=== PATIENT | male | born 1950 | race Caucasian/White ===

== ENCOUNTER → 2018-05-08 10:55 | Outpatient (CLI) | payer MEDICARE, OTHER, SELFPAY ==
[2018-05-02 08:08] VITALS: BMI 24.7
--- NOTE | 2018-05-09 12:13 | PFTCOMP ---
COMPLETE PULMONARY FUNCTION TEST INTERPRETATION Brief HPI: Patient is a 68 year old male, currently under the care of myself, who presents to [facility] for complete pulmonary function tests secondary to diagnosis of dyspnea. Respiratory therapist reports good effort and reproducible results. Interpretation: Forced expiration spirometry shows a moderate large airways obstructive ventilatory defect with an FEV1 of 66% predicted. There is no significant bronchodilator response by strict ATS criteria. Spirograms are of good quality and plateau slowly, indicating slowly emptying areas of the lungs. The respiratory flow volume loop shows decreased expiratory flow rates at all lung volumes consistent with airway obstruction. Lung volumes by body plethysmography show a normal total lung capacity at 6.66 L, 114% predicted. All other lung volumes are within normal limits. Diffusion capacity by carbon monoxide is decreased at 62% predicted. The airway resistance is elevated. No previous pulmonary function tests were available for review. Impression: Irreversible moderate large airways obstructive ventilatory defect with a symmetric reduction diffusing capacity, in a pattern consistent with COPD.
== END ==
PROVIDERS: Family Provider Family Medicine; PCP Family Medicine; Referring Provider Internal Medicine Critical Care Medicine; Visit Provider Internal Medicine Critical Care Medicine
DX: R06.09 Other forms of dyspnea (principal)
CPT/HCPCS: 94060; 94726; 94729

== ENCOUNTER → 2018-05-10 07:35 | Outpatient (CLI) | payer MEDICARE, OTHER, SELFPAY ==
[2018-05-02 08:08] VITALS: BMI 24.7
--- NOTE | 2018-05-10 07:36 | CT_ITS ---
STUDY: CT CHEST WITHOUT CONTRAST REASON FOR EXAM: Male, 68 years old. Recurrent pneumonia. Cough and dyspnea. Longtime smoker. RADIATION DOSAGE (If Supplied By Facility): CTDIvol = ( 9.97 ) mGy, DLP = ( 371.19 ) mGycm TECHNIQUE: Transaxial imaging was performed without the administration of intravenous contrast material. Multiplanar coronal and sagittal images were reformatted. Individualized dose optimization techniques were used for this CT. COMPARISON: None. FINDINGS: Increased linear markings in the upper lobes worse on the right side suggestive of a bilateral apical scarring. Focal calcified plaque is seen along the posterior aspect of the left apex in keeping with calcified pleural plaques. Emphysematous changes are seen within the cystic changes worse in the upper lobes. No focal consolidation or mass lesion is seen. There is no demonstrated pleural abnormality. There are calcifications of the coronary arteries. Small pericardial effusion. There are multiple small lymph nodes within the mediastinum, which are normal in size and morphology most compatible with reactive lymph hyperplasia. Normal hilar regions. Normal unenhanced pulmonary arteries. There is atherosclerotic calcification of the aortic arch aortic arch . There are degenerative changes of the thoracic spine. Nonobstructive 2 mm calculus in the upper pole calyx of the right kidney. CT/Chest without Contrast IMPRESSION: Emphysematous changes worse in the upper lobes. Findings suggestive of scarring at the lung apices worse on the right lung apex. Focal calcified pleural plaque in the left upper lobe. Electronically Signed: Chandra Cummings MD at 9:52 EST , Service support ,
[2018-05-10 08:51] VITALS: PULSE 100; PULSE 102; PULSE 103; PULSE 105; PULSE 107; PULSE 65; PULSE 66; PULSE 99; O2SAT 93; O2SAT 95; O2SAT 96
--- NOTE | 2018-05-11 12:36 | PCM.PSN.6M ---
PSN 6 Minute Walk Test - 6 Minute Walk Test 6 Minute Walk Test: 6 Minute Walk Test PSN:6-Minute Walk Test Start: 05/10/18 08:50 Freq: Status: Active Protocol: RESP.6MINW Document 05/10/18 08:51 MARYJANE (Rec: 05/10/18 08:53 MARYJANE [id number]) 6 Minute Walk Test Date Performed 05/10/18 Time Performed 08:30 Height 5 ft 7 in Weight: 73.028 kg Weight in Pounds 161.[address]: Brandin Hernandez Assistive device used: None Pre-test Oxygen Delivery Method Room Air Pulse Ox (%) 96 Pulse Rate (60-100 beats/min) 65 Dyspnea Micheal Scale (0-10) 0 Exertion Micheal Scale (6-20) 6 1st minute Oxygen Delivery Method Room Air Pulse Ox (%) 93 Pulse Rate (60-100 beats/min) 103 H 2nd minute Oxygen Delivery Method Room Air Pulse Ox (%) 93 Pulse Rate (60-100 beats/min) 102 H 3rd minute Oxygen Delivery Method Room Air Pulse Ox (%) 93 Pulse Rate (60-100 beats/min) 99 4th minute Oxygen Delivery Method Room Air Pulse Ox (%) 93 Pulse Rate (60-100 beats/min) 100 5th minute Oxygen Delivery Method Room Air Pulse Ox (%) 93 Pulse Rate (60-100 beats/min) 107 H 6th minute Oxygen Delivery Method Room Air Pulse Ox (%) 93 Pulse Rate (60-100 beats/min) 105 H Dyspnea Micheal Scale (0-10) 3 Exertion Micheal Scale (6-20) 12 Post-test Oxygen Delivery Method Room Air Pulse Ox (%) 95 Pulse Rate (60-100 beats/min) 66 Full Laps Walked 24 Partial Lap, Number of Tiles Walked 5 Total Distance Walked (ft) 1421 - Interpretation Interpretation: The patient was able to ambulate 1421 feet over the course of 6 minutes on room air with no assistive devices or breaks. The patient did experience desaturation from a baseline of 96% to as low as 93%. Peak heart rate was noted at 107 bpm. These findings are consistent with deconditioning. - Recommendations Recommendations: No supplemental oxygen is indicated at this time.
== END ==
PROVIDERS: Family Provider Family Medicine; PCP Family Medicine; Referring Provider Internal Medicine Critical Care Medicine; Visit Provider Internal Medicine Critical Care Medicine
DX: R06.09 Other forms of dyspnea (principal)
CPT/HCPCS: 71250; 94618

== ENCOUNTER → 2019-05-28 07:00 | Outpatient (CLI) | payer MEDICARE, OTHER, SELFPAY ==
[2018-12-12 07:12] VITALS: BMI 24.3
--- NOTE | 2019-06-01 10:08 | PFT ---
INTRODUCTION: The patient is a 69-year-old male that presents for pulmonary function studies secondary to a diagnosis of COPD. Respiratory therapy reports good patient effort. Bronchodilators were used during testing. INTERPRETATION: Forced expiration spirometry demonstrates the presence of a mild large airways obstructive ventilatory defect. There was no significant response to aerosolized bronchodilators. Spirograms are of good quality and do not plateau indicating slow emptying of the lungs. Body plethysmography was performed and reveals an elevated TLC to 119% of predicted, indicative of underlying hyperinflation. Diffusing capacity by single breath CO is reduced at 65% of predicted. IMPRESSION: Irreversible mild large airways obstructive ventilatory defect with associated hyperinflation and symmetric reduction in diffusing capacity.
== END ==
PROVIDERS: Family Provider Family Medicine; PCP Family Medicine; Referring Provider Internal Medicine Critical Care Medicine; Visit Provider Internal Medicine Critical Care Medicine
DX: J44.9 Chronic obstructive pulmonary disease, unspecified (principal)
CPT/HCPCS: 94060; 94726; 94729

== ENCOUNTER → 2019-05-29 08:16 | Outpatient (CLI) | payer MEDICARE, OTHER, SELFPAY ==
[2018-12-12 07:12] VITALS: BMI 24.3
[2019-05-29 08:30] VITALS: PULSE 106; PULSE 108; PULSE 109; PULSE 78; PULSE 80; O2SAT 90; O2SAT 91; O2SAT 92; O2SAT 94; O2SAT 95
--- NOTE | 2019-06-01 10:30 | PCM.PSN.6M ---
PSN 6 Minute Walk Test - 6 Minute Walk Test 6 Minute Walk Test: 6 Minute Walk Test PSN:6-Minute Walk Test Start: 05/29/19 08:35 Freq: Status: Active Protocol: RESP.6MINW Document 05/29/19 08:30 JLA (Rec: 05/29/19 08:42 JLA [id number]) 6 Minute Walk Test Date Performed 05/29/19 Time Performed 08:30 Height 5 ft 7 in Weight: 151 lb Weight in Pounds 151.[address]: Brandin Hernandez Assistive device used: None Pre-test Oxygen Delivery Method Room Air Pulse Ox (%) 94 Pulse Rate (60-100 beats/min) 78 Dyspnea Micheal Scale (0-10) 0 Exertion Micheal Scale (6-20) 6 1st minute Oxygen Delivery Method Room Air Pulse Ox (%) 91 Pulse Rate (60-100 beats/min) 109 H 2nd minute Oxygen Delivery Method Room Air Pulse Ox (%) 92 Pulse Rate (60-100 beats/min) 106 H 3rd minute Oxygen Delivery Method Room Air Pulse Ox (%) 90 Pulse Rate (60-100 beats/min) 108 H 4th minute Oxygen Delivery Method Room Air Pulse Ox (%) 91 Pulse Rate (60-100 beats/min) 109 H 5th minute Oxygen Delivery Method Room Air Pulse Ox (%) 90 Pulse Rate (60-100 beats/min) 108 H 6th minute Oxygen Delivery Method Room Air Pulse Ox (%) 90 Pulse Rate (60-100 beats/min) 109 H Dyspnea Micheal Scale (0-10) 0.5 Exertion Micheal Scale (6-20) 11 Post-test Oxygen Delivery Method Room Air Pulse Ox (%) 95 Pulse Rate (60-100 beats/min) 80 Full Laps Walked 27 Partial Lap, Number of Tiles Walked 0 Total Distance Walked (ft) 1593 - Interpretation Interpretation: The patient ambulated 1593 feet over the course of 6 minutes beginning on room air without assistive devices or breaks. Pretesting oxygen saturation was noted to be 94% on room air. With ambulation, the luis fernando oxygen saturation was 90%. There was no significant exertional oxygen desaturation. - Recommendations Recommendations: There is no indication for the use of supplemental oxygen at this time.
== END ==
PROVIDERS: Family Provider Family Medicine; PCP Family Medicine; Referring Provider Internal Medicine Critical Care Medicine; Visit Provider Internal Medicine Critical Care Medicine
DX: J44.9 Chronic obstructive pulmonary disease, unspecified (principal)
CPT/HCPCS: 94618

== ENCOUNTER → 2020-01-14 11:10 | Outpatient (CLI) | payer MEDICARE, OTHER, SELFPAY ==
[2019-11-29 07:51] VITALS: BMI 24.4
[2020-01-14 15:26] LABS: Absolute Lymphocyte Count 1.45 X10^3/uL (0.83-4.51); Absolute Neutrophil Count 6.8 X10^3/uL (2.0-7.7); Basophil# 0.05 X10^3/uL; Basophil% 0.5 % (0-1); Eosinophil# 0.17 X10^3/uL; Eosinophils% 1.8 % (0-5); Hematocrit 43.5 % (40-54); Hemoglobin 14.1 g/dL (13.0-16.5); Lymphocyte # 1.45 X10^3/ul (4.0); Lymphocyte % 15.2 % (19-41); Mean Corp Hgb Conc 32.4 g/dL (32-36); Mean Corpuscular Hgb 31.6 pg (27.0-32.0); Mean Corpuscular Volume 97.5 fL (80-94); Mean Platelet Vol. 10.3 fl (6.2-12.0); Monocyte% 9.5 % (0-10); NRBC Flagged by Analyzer 0 % (0-5); Neutrophil # 6.84 X10^3/uL (2.7-7.7); Neutrophil % 71.9 % (47-70); Platelet Count 347 K/mm3 (150-450); RBC Distribution Width CV 12.9 % (11.6-14.6); RBC Distribution Width SD 46.3 fl (35.1-43.9); Red Blood Count 4.46 M/mm3 (4.6-6.2); White Blood Count 9.5 K/mm3 (4.4-11.0)
[2020-01-14 16:07] LABS: ALB/GLOB Ratio 0.9 RATIO (0.9-2.4); AST(SGOT) 17 U/L (15-37); Alanine Aminotransfer ALT/SGPT 31 U/L (16-61); Albumin, Serum 3.3 g/dL (3.2-5.0); Alkaline Phosphatase 95 U/L (45-117); Anion Gap 6 (5-15); BUN 11 mg/dL (7-18); BUN/Creat Ratio 15.5 RATIO (10-20); Calcium,Total 8.5 mg/dL (8.5-10.1); Chloride 107 mmol/L (98-107); Creatinine, Serum 0.71 mg/dL (0.70-1.30); EST Glomerular Filtration Rate 117 mL/min (>60); Est Glom Filt Rate - Afr Amer 141 mL/min (>60); Globulin 3.5 g/dL (2.2-4.2); Glucose 97 mg/dL (74-106); PSA,Total - Annual Screen 0.02 ng/mL (0.00-4.00); Potassium 3.6 mmol/L (3.5-5.1); Protein, Total 6.8 g/dL (6.4-8.2); Sodium Level 140 mmol/L (136-145); T4 Free Direct 1.18 ng/dL (0.76-1.46)
== END ==
PROVIDERS: PCP Family Medicine; Visit Provider Family Medicine
DX: R19.7 Diarrhea, unspecified (principal); E04.1 Nontoxic single thyroid nodule; Z12.5 Encounter for screening for malignant neoplasm of prostate
CPT/HCPCS: 36415; 80053; 83630; 84153; 84439; 84443; 85025; 86140; 87177; 87209; 87493; 87506; G0103

== ENCOUNTER → 2020-01-24 07:31 | Outpatient (CLI) | payer MEDICARE, OTHER, SELFPAY ==
[2019-11-29 07:51] VITALS: BMI 24.4
--- NOTE | 2020-01-24 07:33 | US_ITS ---
HISTORY: thyroid nodule COMPARISON: None TECHNIQUE: Grayscale and color Doppler sonography of the thyroid gland. FINDINGS: RIGHT LOBE: 4.2 x 1.4 x 1.4 cm LEFT LOBE: 2.9 x 1.0 x 1.5 cm ISTHMUS: 2.4 mm Mildly heterogeneous echogenicity without distinct nodule. Mildly prominent vascularity. US/Thyroid IMPRESSION: No thyroid nodule detected. at 2334 Reported and signed by: Jennyfer Hare MD Electronically Signed: Jennyfer Hare MD at 23:34 EDT Tel , Service support ,
== END ==
PROVIDERS: PCP Family Medicine; Referring Provider Family Medicine; Visit Provider Family Medicine
DX: E04.1 Nontoxic single thyroid nodule (principal)
CPT/HCPCS: 76536

== ENCOUNTER → 2020-06-10 08:32 | Outpatient (CLI) | payer MEDICARE, OTHER, SELFPAY ==
[2019-11-29 07:51] VITALS: BMI 24.4
--- NOTE | 2020-06-10 12:26 | PFT ---
INTRODUCTION: The patient is a 70-year-old male that presents for pulmonary function studies secondary to a diagnosis of COPD. Respiratory therapy reports good patient effort. Bronchodilators were used during testing. INTERPRETATION: Forced expiration spirometry demonstrates the presence of a moderate large airways obstructive ventilatory defect. There was no significant response to aerosolized bronchodilators. Spirograms are of good quality and do not plateau indicating slow emptying of the lungs. Body plethysmography was performed and reveals lung volumes to be within normal limits. Diffusing capacity by single breath CO is mildly reduced at 63% of predicted. When compared to previous pulmonary function studies from May 2019, there has been a 12% reduction in FEV1. IMPRESSION: Irreversible moderate large airways obstructive ventilatory defect with preserved lung volumes and mild reduction in diffusing capacity. There has been a 12% reduction in FEV1 since May 2019, as noted above.
== END ==
PROVIDERS: PCP Family Medicine; Referring Provider Nurse Practitioner Acute Care; Visit Provider Nurse Practitioner Acute Care
DX: J44.9 Chronic obstructive pulmonary disease, unspecified (principal)
CPT/HCPCS: 94060; 94726; 94729

== ENCOUNTER → 2020-06-13 12:43 | Outpatient (CLI) | payer MEDICARE, OTHER, SELFPAY ==
[2019-11-29 07:51] VITALS: BMI 24.4
--- NOTE | 2020-06-13 12:50 | CT_ITS ---
ACR Level 3 findings have been noted. An addendum which confirms receipt of the report will follow. STUDY: LOW DOSE CT LUNG CANCER SCREENING REASON FOR EXAM: Male, 70 years old. history of smoking quit 4 years ago; 30 pack year RADIATION DOSAGE (If Supplied By Facility): CTDIvol = ( 2.01 ) mGy, DLP = ( 67.71 ) mGycm TECHNIQUE: No contrast was administered. Low dose technique was utilized (average mAS-38 and kVp 120). 1.25 mm axial source images with a slice interval of 1.25-mm were reconstructed in lung windows. 2.5 mm axial source images with a slice interval of 2.5-mm were reconstructed in lung windows. 5.0 mm axial source images with a slice interval of 5.0-mm were reconstructed in soft tissue windows. Nodule measured using lung windows on PACS and/or independent workstation with automated measurement of minimum and maximum diameter. Nodule measurement reported as average diameter rounded to the nearest whole number. Growth is defined as an increase ins size of greater than 1.5 mm. COMPARISON: CT chest 05/10/2018. FINDINGS: Lung nodules There is mild biapical pleural-parenchymal scarring. Stable, small right and left apical nodular nodular opacities measuring up to 4 mm. There is a new left apical nodular opacity with thin pleural extension measuring up to 5 mm Lungs COPD: Mild. Fibrosis: None. Lymph nodes: None. Other findings: None. Pleural space Effusion: None. Calcification: None. Thickening: None. Heart Heart size: Normal. Coronary calcification: Mild. Pericardial effusion: None. Other findings: Mild aortic atherosclerotic disease. Upper abdomen: None. Thorax: There are degenerative changes of the spine. There is grade 3 anterolisthesis of C7 on T1 Base of neck: None. CT/Low Dose CT Lung Screening IMPRESSION: There is a new left apical nodular opacity measuring up to 5 mm. Stable biapical pulmonary nodules measuring up to 4 mm. Lung-RADS category 3 - Continue screening with LDCT in 6 months. IMPORTANT NOTES FOR USE: ACR Lung-RADS Version 1.0 Assessment Categories Release Date: July 30, 2013 Category: Coded 0-4 bases on nodule(s) with highest degree of suspicion. Negative screen is defined as categories 1 and 2; a positive screen is defined as categories 3 and 4. Category 3 and 4A nodules that are unchanged on interval CT should be coded as category 2, and individuals returned to screening in 12 months. Category 4X: Category 3 or 4 nodules with additional imaging findings that increase the suspicion of lung cancer, such as spiculation, GGN that doubles in size in 1 year, enlarged lymph notes, etc. Category Modifiers: S (significant finding unrelated to lung cancer) and C (prior history of treated lung cancer) may be added to the 0-4 Lung-RADS Electronically Signed: Irene Beck MD at 13:57 EST Tel , Service support ,
== END ==
PROVIDERS: PCP Family Medicine; Referring Provider Nurse Practitioner Acute Care; Visit Provider Nurse Practitioner Acute Care
DX: Z12.2 Encounter for screening for malignant neoplasm of respiratory organs (principal); F17.210 Nicotine dependence, cigarettes, uncomplicated
CPT/HCPCS: 71271

== ENCOUNTER → 2020-06-18 12:20 | Outpatient (CLI) | payer MEDICARE, OTHER, SELFPAY ==
[2019-11-29 07:51] VITALS: BMI 24.4
[2020-06-18 12:54] VITALS: PULSE 100; PULSE 101; PULSE 104; PULSE 108; PULSE 72; PULSE 73; PULSE 85; PULSE 94; O2SAT 90; O2SAT 91; O2SAT 92; O2SAT 93; O2SAT 94
--- NOTE | 2020-06-18 14:57 | WT_ITS ---
PSN 6 Minute Walk Test - 6 Minute Walk Test 6 Minute Walk Test: 6 Minute Walk Test PSN:6-Minute Walk Test Start: 06/18/20 12:54 Freq: Status: Active Protocol: RESP.6MINW Document 06/18/20 12:54 [facility] (Rec: 06/18/20 12:57 [facility] [id number]) 6 Minute Walk Test Date Performed 06/18/20 Time Performed 12:30 Height 5 ft 7 in Weight: 70.307 kg Weight in Pounds 155.[address]: Jessica Bentley HUM[employer] RESOURCE STATISTICIAN Assistive device used: None Pre-test Oxygen Delivery Method Room Air Pulse Ox (%) 94 Pulse Rate (60-100 beats/min) 73 Dyspnea Micheal Scale (0-10) 0 1st minute Oxygen Delivery Method Room Air Pulse Ox (%) 93 Pulse Rate (60-100 beats/min) 85 Dyspnea Micheal Scale (0-10) 0 Number of Rests Taken 0 2nd minute Oxygen Delivery Method Room Air Pulse Ox (%) 92 Pulse Rate (60-100 beats/min) 94 Dyspnea Micheal Scale (0-10) 0 Number of Rests Taken 0 3rd minute Oxygen Delivery Method Room Air Pulse Ox (%) 90 Pulse Rate (60-100 beats/min) 100 Dyspnea Micheal Scale (0-10) 0 Number of Rests Taken 0 4th minute Oxygen Delivery Method Room Air Pulse Ox (%) 90 Pulse Rate (60-100 beats/min) 101 H Dyspnea Micheal Scale (0-10) 0 Number of Rests Taken 0 5th minute Oxygen Delivery Method Room Air Pulse Ox (%) 91 Pulse Rate (60-100 beats/min) 104 H Dyspnea Micheal Scale (0-10) 0 Number of Rests Taken 0 6th minute Oxygen Delivery Method Room Air Pulse Ox (%) 91 Pulse Rate (60-100 beats/min) 108 H Dyspnea Micheal Scale (0-10) 0 Number of Rests Taken 0 Post-test Oxygen Delivery Method Room Air Pulse Ox (%) 94 Pulse Rate (60-100 beats/min) 72 Dyspnea Micheal Scale (0-10) 0 Full Laps Walked 20 Partial Lap, Number of Tiles Walked 17 Total Distance Walked (ft) 1197 - Interpretation Interpretation: The patient was able to ambulate 1197 feet over the course of 6 minutes on room air with no assistive devices or breaks. The patient did experience significant desaturation to as low as 90% and a peak heart rate of 108 bpm. These findings are consistent with a respiratory limitation exercise tolerance. - Recommendations Recommendations: No supplemental oxygen is indicated at this time. However, patient will need to be followed closely given level of desaturation.
== END ==
PROVIDERS: PCP Family Medicine; Referring Provider Nurse Practitioner Acute Care; Visit Provider Nurse Practitioner Acute Care
DX: R94.2 Abnormal results of pulmonary function studies (principal)
CPT/HCPCS: 94618

== ENCOUNTER → 2020-10-30 08:57 | Outpatient (CLI) | payer MEDICARE, OTHER, SELFPAY ==
[2020-07-29 11:12] VITALS: BMI 24.1
--- NOTE | 2020-10-30 09:10 | EKG12_ITS ---
Test Reason : PRE OP Blood Pressure : / mmHG Vent. Rate : 063 BPM Atrial Rate : 063 BPM P-R Int : 148 ms QRS Dur : 068 ms QT Int : 372 ms P-R-T Axes : 076 070 067 degrees QTc Int : 380 ms Sinus rhythm with marked sinus arrhythmia Otherwise normal ECG Confirmed by PUJA CASAS, ALEXUS ([id number]), editorial project manager KENDELL CHAWLA ([id number]) on 11/03/2020 8:57:18 AM Referred By: Jeffery Bernardo Confirmed By:CEASAR LUO MD
[2020-10-30 10:37] LABS: Hematocrit 42.9 % (40-54); Mean Corp Hgb Conc 32.6 g/dL (32-36); Mean Corpuscular Hgb 31.3 pg (27.0-32.0); Mean Platelet Vol. 10.4 fl (6.2-12.0); Platelet Count 247 K/mm3 (150-450); RBC Distribution Width CV 13.2 % (11.6-14.6); RBC Distribution Width SD 46.4 fl (35.1-43.9); Red Blood Count 4.47 M/mm3 (4.6-6.2); White Blood Count 7.1 K/mm3 (4.4-11.0)
[2020-10-30 11:04] LABS: Anion Gap 6 (5-15); BUN 14 mg/dL (7-18); BUN/Creat Ratio 20.1 RATIO (10-20); Calcium,Total 8.4 mg/dL (8.5-10.1); Chloride 106 mmol/L (98-107); EST Glomerular Filtration Rate 119 mL/min (>60); Est Glom Filt Rate - Afr Amer 144 mL/min (>60); Glucose 108 mg/dL (74-106); Potassium 4.2 mmol/L (3.5-5.1); Sodium Level 139 mmol/L (136-145)
== END ==
PROVIDERS: PCP Family Medicine; Referring Provider Otolaryngology; Visit Provider Otolaryngology
DX: Z01.810 Encounter for preprocedural cardiovascular examination (principal); Z01.812 Encounter for preprocedural laboratory examination
CPT/HCPCS: 36415; 80048; 85027; 93005

== ENCOUNTER → 2021-02-19 08:59 | Outpatient (CLI) | payer MEDICARE, OTHER, SELFPAY | PROVIDERS: PCP Family Medicine; Referring Provider Nurse Practitioner Acute Care; Visit Provider Nurse Practitioner Acute Care | DX: Z20.822 Contact with and (suspected) exposure to COVID-19 (principal) | CPT/HCPCS: 87635; C9803; U0005; U0003 ==

== ENCOUNTER 2021-03-24 16:05 | Emergency (ER) | payer MEDICARE, OTHER, SELFPAY ==
[2021-03-24 16:06] VITALS: BP 122/76; PULSE 81; RESP 18; TEMP 36.8; O2SAT 95; BMI 23.9
--- NOTE | 2021-03-24 16:25 | RAD_ITS ---
HISTORY: sob EXAMINATION/TECHNIQUE: XR Chest 1 View: 1 view COMPARISON: Chest CT 06/13/20 FINDINGS: LINES/DEVICES: None. LUNGS: No consolidation, edema or effusion. No pneumothorax. MEDIASTINUM AND CARDIOVASCULAR STRUCTURES: Cardiac silhouette not enlarged. Central airways and mediastinal contour are unremarkable. BONES AND SOFT TISSUES: No acute bony abnormalities. RAD/Chest 1 View IMPRESSION: No radiographic evidence of acute cardiopulmonary disease. at 1657 Reported and signed by: Tha Matt MD Electronically Signed: Tha Matt MD at 16:56 EST Tel , Service support ,
[2021-03-24 17:05] VITALS: BP 122/76; PULSE 81; RESP 18; TEMP 36.8; O2SAT 95
--- NOTE | 2021-03-24 17:26 | EDS_ITS ---
HPI History of Present Illness Chief Complaint: Shortness of Breath Narrative Narrative: Patient presents with increased difficulty breathing over the last few days. He states that he has past medical history of COPD. He has been tested for Covid and is negative. He saw his primary care physician a few weeks ago when he received a prednisone burst, and a prescription for an antibiotic but was told not to take the antibiotic unless he developed a fever. He took the prednisone and improved. He has been using an out of date inhaler, and states that his increased shortness of breath has started again over the last few days. He occasionally has a cough. He denies any leg swelling. No chest pain or chest tightness. He and his present because they state he needs a strong antibiotic and more steroids. No fevers or chills. No body aches. No loss of taste or smell. Patient has been vaccinated and booster shot received against COVID-19. [facility] Medical History Bacterial pneumonia COPD (chronic obstructive pulmonary disease) Prostate cancer Home Medications Handicap Placcard #1 ea 07/18/18 [Rx Last Taken Unknown] tiotropium 2.5 mcg-olodaterol 2.5 mcg/actuation mist for inhalation 2 puff INHALATION DAILY #4 g 07/09/20 [Rx Last Taken Unknown] levofloxacin 500 mg tablet 500 mg PO Q24H #5 tab 02/20/21 [Rx Last Taken Unknown] prednisone 10 mg tablet 10 mg PO QDAY #20 tab 02/20/21 [Rx Last Taken Unknown] albuterol sulfate [Ventolin HFA] 1 - 2 puff INHALATION Q4H PRN PRN #1 ea 03/24 [Rx Last Taken Unknown] prednisone 40 mg PO DAILY #14 tab 03/24/21 [Rx Last Taken Unknown] Allergy/AdvReac Type Severity Reaction Status Date / Time No Known Allergies Allergy Unverified 03/24/21 16:08 Family History Father Cancer Prostate Surgical History History of hip replacement Social History Smoking Status: Former smoker Tobacco: How many years used: 50 how long ago did patient quit smokin, 2ppd second hand exposure: Yes ROS ROS ED ROS Narrative Constitutional: No fever, no chills. HEENT: No sore throat. No neck pain. No loss of vision. No rhinorrhea. Cardiovascular: No chest pain. No palpitations. No pedal edema. Respiratory: Occasional cough, positive shortness of breath. Abdominal: No abdominal pain. No nausea. No vomiting. Genitourinary: No dysuria. No hematuria. Musculoskeletal: No myalgias. No arthralgias. Neurologic: No headaches. No dizziness. No lightheadedness. Skin: No rash. No change in color. Psychiatric: No depression. No anxiety. EXAM Physical Exam Narrative Exam Narrative: Afebrile. Vital signs noted. HEENT: Normocephalic. Atraumatic. PERRL, EOMI. Neck soft and supple. No point tenderness or step off. Cardiovascular: Regular rate and rhythm. No murmurs, rubs, or gallops appreciated. Respiratory: No tachypnea. Lungs clear to auscultation bilaterally. Gastrointestinal: Abdomen soft, nontender, with normoactive bowel sounds. No rebound or guarding. Neurological: Awake. Alert. Nonfocal, nonlateralizing. Skin: No rash. Normal color. No pallor. Musculoskeletal: No pedal edema. Full range of motion extremities. Const Vital Signs: 03/24/21 16:06 03/24/21 17:05 Temperature 98.3 F 98.3 F Temperature Source Temporal Temporal Pulse Rate 81 81 Respiratory Rate 18 18 Blood Pressure 122/76 H 122/76 H Blood Pressure Mean 91 91 Pulse Ox 95 95 Oxygen Delivery Method Room Air Room Air MDM MDM MDM Narrative Medical decision making narrative: Patient's pulse ox is 95% on room air without evidence of hypoxia. He has a chest x-ray that was performed in triage. There is no radiographic evidence of an acute cardiopulmonary process/disease. I had a lengthy discussion with the patient and his regarding not using antibiotics for COPD exacerbation. Instead, he will be given another burst of steroids 40 mg for the next week, and I wrote him a prescription for a new inhaler. He states he has only been using that sparingly. He was told that he should be using it every 4-6 hours especially over the next few days. Continuation of smoking cessation was discussed. I feel he can be discharged safely home to follow-up with his primary care physician, and his remanufacturing technician Dr. Brandin Hernandez. I had also discussed with the patient and his swabbing him for COVID-19, but he is not exhibiting any other symptoms except for the shortness of breath with his history of COPD. They declined. Disposition is discharged home in stable condition. Radiography Diagnostic Testing: Clinical Impression(s) from Imaging Studies Chest X-Ray 03/24/21 16:25 IMPRESSION: No radiographic evidence of acute cardiopulmonary disease. at 1657 Reported and signed by: Tha Matt MD Electronically Signed: Tha Matt MD at 16:56 EST Tel , Service support , Discharge Plan Triage Chief Complaint: Shortness of Breath ED Provider: Puma Buchanan Dx/Rx/DC Orders Clinical Impression: COPD (chronic obstructive pulmonary disease), Dyspnea Instructions: ED COPD Flare, ED Dyspnea Prescriptions: New albuterol sulfate [Ventolin HFA] 90 mcg/actuation HFA aerosol inhaler 1 - 2 puff inhalation Q4H PRN PRN (Reason: Wheezing) Qty: 1 RF: 0 prednisone 20 mg tablet 40 mg PO DAILY Qty: 14 RF: 0 No Action levofloxacin 500 mg tablet 500 mg PO Q24H Qty: 5 RF: 0 prednisone 10 mg tablet 10 mg PO QDAY Qty: 20 RF: 0 (DME) Handicap Placcard Qty: 1 RF: 0 Stiolto Respimat 2.5-2.5 mcg/actuation mist 2 puff INHALATION DAILY Qty: 4 RF: 11 Primary Care Provider: Joseph Bourne Referrals: Brandin Hernandez MD [STAFF PHYSICIAN] - 03/30/21 Joseph Bourne DO [Primary Care Provider] - 03/31/21 Disposition Disposition: Home, Self Care
== END 2021-03-24 17:39 | disposition home or self-care (01) ==
LOC: ED 17:26
PROVIDERS: Emergency Provider Emergency Medicine; PCP Family Medicine
DX: J44.1 Chronic obstructive pulmonary disease with (acute) exacerbation (principal); Z87.891 Personal history of nicotine dependence
CPT/HCPCS: 71045; 99282

== ENCOUNTER 2021-07-11 08:02 | Outpatient (CLI) | payer MEDICARE, OTHER, SELFPAY ==
--- NOTE | 2021-07-11 08:05 | CT_ITS ---
HISTORY: Screening. 71-year-old male 50 year smoking history 1 to 3 packs per day. COPD. Emphysema. EXAMINATION: CT Low Dose CT Chest for Lung Cancer Screening TECHNIQUE: Helically acquired images were obtained of the chest. A radiation dose optimization technique was used for this scan. IV Contrast dosage and agent: None RADIATION DOSE: The following value refers to 1 exposure event(s) . CTDI vol (mGy): 2.01 DLP vol (mGy-cm): 70.22 COMPARISON: June 13, 2020, May 10, 2018 FINDINGS: LUNGS, PLEURA AND LARGE AIRWAYS: Diffuse severe emphysematous change. Mild basilar atelectasis or scarring. No consolidation or effusion. Bilateral apical scarring, unchanged from May 10, 2018. No pneumothorax. Mild diffuse peribronchial thickening. 5 mm left apical pulmonary nodule, unchanged from June 13, 2020 with linear atelectasis or scarring extending to pleura. Other bilateral apical scarring is unchanged from June 13, 2020. No new pulmonary nodules. THYROID: No thyroid lesions. HEART AND PERICARDIUM: Heart size is normal. No pericardial effusion. Mild multivessel coronary atherosclerosis. VESSELS: Mild aortic atherosclerosis. Thoracic aorta is not dilated. MEDIASTINUM AND GRAHAM: Scattered subcentimeter mediastinal nodes, nonpathologic by size criteria, unchanged from prior CT. No mediastinal or hilar adenopathy. Esophagus is unremarkable. No hiatal hernia. UPPER ABDOMEN: No acute pathology. BONES: No suspicious lytic or blastic abnormality. Chronic grade 3 anterolisthesis C7 on T1 with mild spinal canal stenosis and severe right neuroforaminal stenosis. Lumbar trans-pedicle fixation under partially seen. CT/Low Dose CT Lung Screening IMPRESSION: Stable 5 mm left apical nodule compared with June 13, 2020. Other apical nodular scarring is unchanged from May 10 2018. Overall Lung-RADS 2: Benign appearance or behavior. 12 month follow-up low dose CT chest recommended. Diffuse emphysematous change with mild peribronchial thickening compatible with acute or chronic bronchitis. IMPORTANT NOTES FOR USE: ACR Lung-RADS Version 1.0 Assessment Categories Release Date: July 30, 2013 Category: Coded 0-4 bases on nodule(s) with highest degree of suspicion. Negative screen is defined as categories 1 and 2; a positive screen is defined as categories 3 and 4. Category 3 and 4A nodules that are unchanged on interval CT should be coded as category 2, and individuals returned to screening in 12 months. Category 4X: Category 3 or 4 nodules with additional imaging findings that increase the suspicion of lung cancer, such as spiculation, GGN that doubles in size in 1 year, enlarged lymph notes, etc. Category Modifiers: S (significant finding unrelated to lung cancer) and C (prior history of treated lung cancer) may be added to the 0-4 Lung-RADS Individualized dose optimization techniques were used for this CT. at 0846 Reported and signed by: Doc Aponte MD Electronically Signed: Doc Aponte MD at 8:45 EDT ,
== END 2021-07-11 23:59 | disposition home or self-care (01) ==
PROVIDERS: PCP Family Medicine; Referring Provider Internal Medicine Critical Care Medicine; Visit Provider Internal Medicine Critical Care Medicine
DX: Z87.891 Personal history of nicotine dependence (principal); J44.9 Chronic obstructive pulmonary disease, unspecified; Z12.2 Encounter for screening for malignant neoplasm of respiratory organs
CPT/HCPCS: 71271

== ENCOUNTER → 2021-07-30 | Outpatient (CLI) | payer MEDICARE, OTHER, SELFPAY ==
--- NOTE | 2021-07-30 13:39 | PFTCOMP ---
COMPLETE PULMONARY FUNCTION TEST INTERPRETATION Brief HPI: Patient is a 71 year old male, currently under the care of myself, who presents to [facility] for complete pulmonary function tests secondary to diagnosis of COPD. Respiratory therapist reports good effort and reproducible results. Interpretation: Forced expiration spirometry shows a mild large airways obstructive ventilatory defect with an FEV1 of 70% predicted. There is no significant bronchodilator response by strict ATS criteria. Spirograms are of good quality and plateau slowly, indicating slowly emptying areas of the lungs. The respiratory flow volume loop shows decreased expiratory flow rates at all lung volumes consistent with airway obstruction. Lung volumes by body plethysmography show a normal total lung capacity at 5.18 L, 90% predicted. All other lung volumes are within normal limits. Diffusion capacity by carbon monoxide is normal at 77% predicted. The airway resistance is elevated. Compared to previous pulmonary function tests from 06/10/2020, there is been a significant improvement in air trapping with hyperinflation and DLCO. Impression: Irreversible mild large airways obstructive ventilatory defect with a symmetric reduction diffusing capacity, but some improvement compared to previous.
== END | disposition home or self-care (01) ==
LOC: PSN 07:51
PROVIDERS: PCP Family Medicine; Referring Provider Internal Medicine Critical Care Medicine; Visit Provider Internal Medicine Critical Care Medicine
DX: Z87.891 Personal history of nicotine dependence (principal); J44.9 Chronic obstructive pulmonary disease, unspecified
CPT/HCPCS: 94060; 94726; 94729

== ENCOUNTER → 2021-08-04 | Outpatient (CLI) | payer MEDICARE, OTHER, SELFPAY ==
[2021-08-04 13:45] VITALS: PULSE 104; PULSE 108; PULSE 110; PULSE 73; PULSE 80; PULSE 89; PULSE 98; O2SAT 91; O2SAT 92; O2SAT 95; O2SAT 96
--- NOTE | 2021-08-05 07:08 | PCM.PSN.6M ---
PSN 6 Minute Walk Test 6 Minute Walk Test 6 Minute Walk Test: 6 Minute Walk Test PSN:6-Minute Walk Test Start: 08/04/21 13:57 Freq: Status: Active Protocol: RESP.6MINW Document 08/04/21 13:45 [facility] (Rec: 08/04/21 14:01 [facility] [id number]) 6 Minute Walk Test Date Performed 08/04/21 Time Performed 13:45 Height 5 ft 6 in Weight: 70.307 kg Weight in Pounds 155.[address]: Dr Hernandez Assistive device used: None Pre-test Oxygen Delivery Method Room Air Pulse Ox (%) 95 Pulse Rate (60-100 beats/min) 73 Dyspnea Micheal Scale (0-10) 0 Exertion Micheal Scale (6-20) 6 1st minute Oxygen Delivery Method Room Air Pulse Ox (%) 96 Pulse Rate (60-100 beats/min) 110 H 2nd minute Oxygen Delivery Method Room Air Pulse Ox (%) 92 Pulse Rate (60-100 beats/min) 108 H 3rd minute Oxygen Delivery Method Nasal Cannula Pulse Ox (%) 91 Pulse Rate (60-100 beats/min) 104 H 4th minute Oxygen Delivery Method Nasal Cannula Pulse Ox (%) 91 Pulse Rate (60-100 beats/min) 108 H 5th minute Oxygen Delivery Method Room Air Pulse Ox (%) 91 Pulse Rate (60-100 beats/min) 98 6th minute Oxygen Delivery Method Room Air Pulse Ox (%) 92 Pulse Rate (60-100 beats/min) 80 Dyspnea Micheal Scale (0-10) 0 Exertion Micheal Scale (6-20) 8 Post-test Oxygen Delivery Method Room Air Pulse Ox (%) 96 Pulse Rate (60-100 beats/min) 89 Full Laps Walked 26 Partial Lap, Number of Tiles Walked 0 Total Distance Walked (ft) 1534 Interpretation Interpretation: The patient ambulated 1534 feet over the course of 6 minutes beginning on room air without assistive devices. Pretesting oxygen saturation was noted to be 95% on room air. With ambulation, the luis fernando oxygen saturation was 91%. There was no significant exertional oxygen desaturation. Recommendations Recommendations: There is no indication for the use of supplemental oxygen at this time.
== END | disposition home or self-care (01) ==
LOC: PSN 13:32
PROVIDERS: PCP Family Medicine; Visit Provider Internal Medicine Critical Care Medicine
DX: J44.9 Chronic obstructive pulmonary disease, unspecified (principal); F17.210 Nicotine dependence, cigarettes, uncomplicated
CPT/HCPCS: 94618

== ENCOUNTER → 2022-04-12 | Outpatient (CLI) | payer MEDICARE, OTHER, SELFPAY ==
[2022-04-12 17:53] LABS: Absolute Lymphocyte Count 1.19 X10^3/uL (0.83-4.51); Absolute Neutrophil Count 11.4 X10^3/uL (2.0-7.7); Basophil# 0.04 X10^3/uL; Basophil% 0.3 % (0-1); Hematocrit 45.3 % (40-54); Hemoglobin 15.1 g/dL (13.0-16.5); Lymphocyte # 1.19 X10^3/ul (0.83-4.51); Lymphocyte % 8.9 % (19-41); Mean Corp Hgb Conc 33.3 g/dL (32-36); Mean Corpuscular Hgb 31.7 pg (27.0-32.0); Mean Corpuscular Volume 95.2 fL (80-94); Mean Platelet Vol. 10.5 fl (6.2-12.0); Monocyte# 0.64 X10^3/uL; Monocyte% 4.8 % (0-10); NRBC Flagged by Analyzer 0 % (0-5); Neutrophil # 11.39 X10^3/uL (2.7-7.7); Neutrophil % 84.7 % (47-70); Platelet Count 507 K/mm3 (150-450); RBC Distribution Width CV 13.1 % (11.6-14.6); RBC Distribution Width SD 46.6 fl (35.1-43.9); Red Blood Count 4.76 M/mm3 (4.6-6.2); White Blood Count 13.4 K/mm3 (4.4-11.0)
[2022-04-12 18:23] LABS: ALB/GLOB Ratio 1.1 RATIO (0.9-2.4); AST(SGOT) 13 U/L (15-37); Alanine Aminotransfer ALT/SGPT 39 U/L (16-61); Albumin, Serum 3.6 g/dL (3.2-5.0); Alkaline Phosphatase 74 U/L (45-117); Anion Gap 6 (5-15); BUN 25 mg/dL (7-18); BUN/Creat Ratio 27.2 RATIO (10-20); CRP < 2.90 mg/L (0.0-3.0); Calcium,Total 9.3 mg/dL (8.5-10.1); Chloride 102 mmol/L (98-107); Cholesterol 181 mg/dL (200); Creatinine, Serum 0.92 mg/dL (0.70-1.30); EST Glomerular Filtration Rate 86 mL/min (>60); Est Glom Filt Rate - Afr Amer 104 mL/min (>60); Globulin 3.4 g/dL (2.2-4.2); Glucose 129 mg/dL (74-106); High Density Lipoprotein 76 mg/dL; PSA,Total - Annual Screen 0.12 ng/mL (0.00-4.00); Potassium 4.4 mmol/L (3.5-5.1); Rheumatoid Factor < 10.0 IU/mL (<15); Sodium Level 136 mmol/L (136-145); Triglycerides 57 mg/dL; Very Low Density Lipoprotein 11 mg/dL (5-40)
== END | disposition home or self-care (01) ==
LOC: BFHLAB 15:06
PROVIDERS: PCP Family Medicine; Visit Provider Family Medicine
DX: J44.1 Chronic obstructive pulmonary disease with (acute) exacerbation (principal); E78.5 Hyperlipidemia, unspecified; M25.50 Pain in unspecified joint; Z12.5 Encounter for screening for malignant neoplasm of prostate; Z51.81 Encounter for therapeutic drug level monitoring
CPT/HCPCS: 36415; 80053; 80061; 84153; 85025; 86140; 86431; G0103

== ENCOUNTER 2022-06-01 07:24 | Day surgery (SDC) | payer MEDICARE, OTHER, SELFPAY ==
[2022-06-01] VITALS (9 sets, daily range): BP systolic 78–100; BP diastolic 46–79; PULSE 71–99; RESP 16–20; TEMP 36.1–37.1; O2SAT 95–98; BMI 25.7
[2022-06-01] MEDS: Lactated Ringers 1,000 ML 15 ML IV (07:49)
--- NOTE | 2022-06-01 08:13 | HP.PCM_ITS ---
History and Physical Date of Admission: 06/01/22 Intake Vital Signs ? 03/30/2208:08 05/03/2306:43 05/03/2308:08 Height 5 ft 4 in 5 ft 4 in 5 ft 4 in Weight: ? ? 154 lb 4 oz BMI ? ?B 26.4 BP ? ? 120/76 Blood Pressure Location ? ? Rt brachial Position ? ? Sitting Respiration ? ? 17 Pulse ? ? 60 Pulse Source ? ? Monitor Temp ? ? 97.4 F L Temp Source ? ? Temporal Pulse Oximetry (%) ? ? 97 Oxygen Delivery Method ? ? room air Intake Visit Reasons:?C-Scope Chief Complaint: c-scope Allergies No Known Allergies Allergy (Verified 05/03/22 09:09) Medications Handicap Placcard #1 ea 07/18/18 [Rx Confirmed 05/03/22] albuterol sulfate 90 mcg/actuation aerosol inhaler (Ventolin HFA) 1 - 2 puff inhalation Q4H PRN PRN Wheezing #1 ea 03/24/21 [Rx Confirmed 05/03/22] ascorbic acid (vitamin C) 1,000 mg tablet,extended release 2,000 mg PO DAILY 03/30/21 [History Confirmed 05/03/22] cholecalciferol (vitamin D3) 25 mcg (1,000 unit) capsule 25 mcg PO BID 03/30/21 [History Confirmed 05/03/22] vitamins A,C,E-lgip-lnjpdq 4,296 mcg-226 mg-90 mg capsule (PreserVision AREDS) 1 cap PO BID 03/30/21 [History Confirmed 05/03/22] tiotropium 2.5 mcg-olodaterol 2.5 mcg/actuation mist for inhalation (Stiolto Respimat) 2 puff inhalation DAILY #4 grams 08/11/21 [Rx Confirmed 05/03/22] elderberry fruit 50 mg/5 mL oral syrup mg PO 05/03/22 [History Confirmed 05/03/22] PFSH Medical History?(Updated 05/03/22 @ 09:08 by Mari Membreno) Bacterial pneumonia COPD (chronic obstructive pulmonary disease) Prostate cancer Surgical History? History of hip replacement Family History? Father Cancer ?? ? Prostate ?? ? Social History? Smoking Status:? Former smoker Tobacco: How many years used:? 50 how long ago did patient quit smoking:? 2017, 2ppd second hand exposure:? Yes alcohol intake:? never substance use type:? does not use HPI HPI HPI: Patient is a 72-year-old male here for colonoscopy.? His last colonoscopy was over 10 years ago he believes.? He is not having any blood in his stool or abdominal pain.? He has no family history of colon cancer.? He says his last colonoscopy was incomplete due to tortuous colon. ROS General General: No weight change, appetite, fatigue, colon cancer, breast cancer or weakness HEENT HEENT: No difficulty swallowing, eye injury, eye surgery, swollen glands or hoarseness Endo Endocrine: No thyroid disease, diabetes mellitus, thyroid cancer, Hair loss, heat intolerance or cold intolerance Musc Musculoskeletal: Yes back problems and arthritis; No rheumatoid arthritis, gout or joint pain Cardio Cardiovascular: No murmur, pacemaker, heart disease, atrial fibrillation, high blood pressure, heart attack, heart stent, palpitations, shortness of breat with exertion or chest pain Psych Psychiatric: No depression, anxiety or hearing voices Resp Respiratory: No shortness of breath, No sleep apnea, No cough, Yes COPD, No asthma, No emphysema and No wheezing Gastro Gastrointestinal: No abdominal pain, No nausea or vomiting, No diarrhea, Yes constipation, No blood in stool, No acid reflux, No hemorrhoids, No ulcers, No gallbladder problem and No black,tarry stools Saw Hematologic: No blood thinners, No blood disorders, No bleeding, No anemia and No blood clots Neuro Neurologic: No system reviewed and no additional complaints, except as documented, No as per HPI, No abnormal gait, No abnormal hearing, No abnormal movements, No abnormal speech, No behavioral changes, No burning sensations, No confusion, No convulsions, No disequilibrium, No dizziness, No localized weakness, No frequent falls, No headache(s), No lack of coordination, No loss of vision, No memory loss, No numbness, No other visual disturbances, No radicular pain, No restless legs, No sensory deficit, No syncope, No tingling, No tremor(s), No weakness and No other Exam Const General: cooperative Orientation: alert and oriented x3 HENMT Head: normal to inspection Neck Neck: normal visual inspection and full ROM Chest Chest palpation & inspection: normal inspection of the chest Resp Effort & Inspection: normal respiratory effort Auscultation: clear to auscultation bilaterally Cardio Rate: regular rate Rhythm: regular rhythm GI Inspection: non-distended Palpation: soft and nontender Skin General: no rashes or lesions noted Neuro General: patient alert and patient oriented x3 Extrem General: full ROM Psych Appearance: grossly normal Mental Status: mental status grossly normal Assessment and Plan Assessment and Plan (1) Screening for malignant neoplasm of colon: ?Status:?Acute ?Plan: Patient does have chronic constipation so I will order him a 2-day bowel prep.? I discussed colonoscopy with him in detail. I explained endoscopy in detail to the patient.? I explained the risks including but not limited to stroke or heart attack with anesthesia, perforation of the GI tract, bleeding, infection.? I explained that any of these could necessitate further emergency surgery.? The patient understands and all questions were answered sufficiently.? The patient wishes to proceed with procedure. Ross Jonhston MD Pager: [facility] [address] [place] [address], [address] [place] [address] Office: I have examined the patient and the H&P has been reviewed. There are no clinical changes since date of exam.
--- NOTE | 2022-06-01 08:41 | OP.COLON_ITS ---
Patient Name: Kris Tate Procedure Date: 06/01/2022 8:14 AM Date of : 1950 Age: 72 Procedure: Colonoscopy Indications: Screening for colorectal malignant neoplasm Providers: Ross Johnston MD Referring MD: Ross Johntson MD Medicines: Monitored Anesthesia Care Patient Profile: This is a 72 year old male. Refer to note in patient chart for documentation of history and physical. Last Colonoscopy: none. The patient's first colonoscopy is today. Complications: No immediate complications. Procedure: Pre-Anesthesia Assessment: - Prior to the procedure, a History and Physical was performed, and patient medications and allergies were reviewed. The patient's tolerance of previous anesthesia was also reviewed. The risks and benefits of the procedure and the sedation options and risks were discussed with the patient. All questions were answered, and informed consent was obtained. Prior Anticoagulants: The patient has taken no previous anticoagulant or antiplatelet agents. After reviewing the risks and benefits, the patient was deemed in satisfactory condition to undergo the procedure. After I obtained informed consent, the scope was passed under direct vision. Throughout the procedure, the patient's blood pressure, pulse, and oxygen saturations were monitored continuously. The colonoscope was introduced through the anus and advanced to the cecum, identified by appendiceal orifice and ileocecal valve. The colonoscopy was performed without difficulty. The patient tolerated the procedure well. The quality of the bowel preparation was good. Scope In: 8:25:46 AM Scope Withdrawal Time 0 hours 6 minutes 10 seconds Scope Out: 8:37:13 AM Total Procedure Duration Time 0 hours 11 minutes 27 seconds Findings: The entire examined colon appeared normal on direct and retroflexion views. Impression: - The entire examined colon is normal on direct and retroflexion views. - No specimens collected. Recommendation: - Discharge patient to home. - Resume previous diet. - Continue present medications. - Repeat colonoscopy is not recommended due to current age (66 years or older) for screening purposes. Procedure Code(s): --- Professional --- 74185, Colonoscopy, flexible; diagnostic, including collection of specimen(s) by brushing or washing, when performed (separate procedure) Diagnosis Code(s): --- Professional --- Z12.11, Encounter for screening for malignant neoplasm of colon CPT copyright 2017 [employer]. All rights reserved. The codes documented in this report are preliminary and upon data coder operator review may be revised to meet current compliance requirements. Ross Johnston MD 06/01/2022 8:41:14 AM This report has been signed electronically. Number of Addenda: 0 Note Initiated On: 06/01/2022 8:14 AM
--- NOTE | 2022-06-01 08:42 | OP.CCLET_ITS ---
06/01/2022 Joseph Bourne Re : Colonoscopy procedure for Kris Tate Dear Steffen This procedure was performed on Wednesday, June 01, 2022. My impressions and recommendations are as follows: Impressions : - The entire examined colon is normal on direct and retroflexion views. - No specimens collected. Recommendations : - Discharge patient to home. - Resume previous diet. - Continue present medications. - Repeat colonoscopy is not recommended due to current age (66 years or older) for screening purposes. My findings are described in the full procedure note, which is enclosed. If I can be of further assistance, please feel free to contact me at Doctor phone number(s): , Work: . Sincerely, Ross Johnston MD 06/01/2022 8:41:14 AM This report has been signed electronically.
== END 2022-06-01 09:40 | disposition home or self-care (01) ==
LOC: EN 07:26 → AC 07:27
PROVIDERS: PCP Family Medicine; Referring Provider Family Medicine; Visit Provider Surgery
PROC: 0DJD8ZZ Inspection of Lower Intestinal Tract, Via Natural or Artificial Opening Endoscopic (ICD-10-PCS; CPT 45378; principal; 2022-06-01 08:25)
DX: Z12.11 Encounter for screening for malignant neoplasm of colon (principal); J44.9 Chronic obstructive pulmonary disease, unspecified; Q43.8 Other specified congenital malformations of intestine; Z87.891 Personal history of nicotine dependence; Z79.899 Other long term (current) drug therapy
CPT/HCPCS: G0121; J7120; J2405

== ENCOUNTER → 2022-07-12 | Outpatient (CLI) | payer MEDICARE, OTHER, SELFPAY ==
--- NOTE | 2022-07-12 13:37 | CT_ITS ---
STUDY: LOW DOSE CT LUNG CANCER SCREENING REASON FOR EXAM: Male, 72 years old, smoker; 30 pack years, quit 2016 RADIATION DOSAGE (If Supplied By Facility): CTDIvol = ( 2.01 ) mGy, DLP = ( 71.73 ) mGycm TECHNIQUE: No contrast was administered. Low dose technique was utilized (average mAS-38 and kVp 120). 1.25 mm axial source images with a slice interval of 1.25-mm were reconstructed in lung windows. COMPARISON: Low-dose chest CT from 07/11/2021 FINDINGS: Hyperexpanded lungs and centrilobular emphysematous changes with stable biapical scarring. Stable 4 mm nodule within posterior left apex with adjacent linear scarring. Stable appearance of a few punctate calcified granulomas within right lung. No new pulmonary nodules, pulmonary mass or consolidation demonstrated. Airways are patent. No pneumothorax or pleural effusion. No pathologically enlarged mediastinal or hilar lymph nodes. Normal size heart with coronary arterial calcifications. Aortic atherosclerotic calcifications with no thoracic aortic aneurysm. Trace residual pericardial effusion. Stable skeletal degenerative changes. Posterior lumbar spinal fusion hardware noted. No acute findings within imaged upper abdomen. CT/Low Dose CT Lung Screening IMPRESSION: Stable appearance of pulmonary emphysema with 5 mm left apical pulmonary nodule and adjacent scarring. There is also sequela of previous intrathoracic granulomatous infection. Lung-RADS category 2 - Continue annual screening with LDCT in 12 months. IMPORTANT NOTES FOR USE: ACR Lung-RADS Version 1.1 Assessment Categories Release Date: 2018 Category: Coded 0-4 bases on nodule(s) with highest degree of suspicion. Negative screen is defined as categories 1 and 2; a positive screen is defined as categories 3 and 4. Category 3 and 4A nodules that are unchanged on interval CT should be coded as category 2, and individuals returned to screening in 12 months. Category 4X: Category 3 or 4 nodules with additional imaging findings that increase the suspicion of lung cancer, such as spiculation, GGN that doubles in size in 1 year, enlarged lymph notes, etc. Category Modifiers: S (significant finding unrelated to lung cancer) Electronically Signed: Joseph Casanova MD at 0:37 EDT ,
== END | disposition home or self-care (01) ==
LOC: CT 13:34
PROVIDERS: PCP Family Medicine; Referring Provider Nurse Practitioner Acute Care; Visit Provider Nurse Practitioner Acute Care
DX: Z12.2 Encounter for screening for malignant neoplasm of respiratory organs (principal); F17.210 Nicotine dependence, cigarettes, uncomplicated
CPT/HCPCS: 71271

== ENCOUNTER 2022-12-29 13:43 | Outpatient (CLI) | payer MEDICARE, OTHER, SELFPAY ==
[2022-12-29 15:10] LABS: Absolute Lymphocyte Count 1.26 X10^3/uL (0.83-4.51); Absolute Neutrophil Count 8.2 X10^3/uL (2.0-7.7); Basophil# 0.08 X10^3/uL; Basophil% 0.7 % (0-1); Eosinophil# 0.11 X10^3/uL; Hematocrit 45.8 % (40-54); Hemoglobin 15.1 g/dL (13.0-16.5); Lymphocyte # 1.26 X10^3/ul (0.83-4.51); Lymphocyte % 11.8 % (19-41); Mean Corpuscular Hgb 32.1 pg (27.0-32.0); Mean Corpuscular Volume 97.4 fL (80-94); Mean Platelet Vol. 10.3 fl (6.2-12.0); Monocyte# 0.76 X10^3/uL; Monocyte% 7.1 % (0-10); NRBC Flagged by Analyzer 0 % (0-5); Neutrophil # 8.22 X10^3/uL (2.7-7.7); Platelet Count 285 K/mm3 (150-450); RBC Distribution Width CV 13.2 % (11.6-14.6); RBC Distribution Width SD 47.7 fl (35.1-43.9); White Blood Count 10.7 K/mm3 (4.4-11.0)
[2022-12-29 16:01] LABS: T4 Free Direct 1.08 ng/dL (0.76-1.46); Thyroid Stim Hormone (TSH) 3.12 uIU/mL (0.358-3.74)
== END 2022-12-29 23:59 | disposition home or self-care (01) ==
LOC: MTLAB 13:44
PROVIDERS: PCP Family Medicine; Referring Provider Nurse Practitioner Family; Visit Provider Nurse Practitioner Family
DX: R22.1 Localized swelling, mass and lump, neck (principal); E07.9 Disorder of thyroid, unspecified
CPT/HCPCS: 36415; 84439; 84443; 85025

== ENCOUNTER → 2023-01-03 | Outpatient (CLI) | payer MEDICARE, OTHER, SELFPAY ==
--- NOTE | 2023-01-03 12:49 | US_ITS ---
INDICATION: NEW LUMP ON NECK EXAMINATION: Ultrasound US Thyroid (eg thyroid, parathyroid, parotid) TECHNIQUE: De Anda scale and color doppler imaging was performed of the thyroid gland. COMPARISON: January 23, 2022 FINDINGS: RIGHT THYROID LOBE: 1.2 x 3.7 x 1.8 cm. Homogeneous echotexture with normal vascularity. [No thyroid nodules are present. LEFT THYROID LOBE: 1.4 x 3.3 x 1.1 cm. Homogeneous echotexture with normal vascularity. [No thyroid nodules are present. ISTHMUS: 0.14 cm. No thyroid nodules are present. There are vascular calcifications within the visualized common carotid artery. There is a 0.8 x 1.0 x 0.6 cm hypoechoic round slightly irregular soft tissue nodule within the suprasternal notch that may contain a partially effaced fatty hilum. US/Thyroid IMPRESSION: No thyroid nodule identified. Indeterminate 0.8 x 1.0 x 0.6 cm soft tissue focus within the suprasternal notch concerning for an abnormal lymph node, cannot exclude neoplastic process. Electronically Signed: Eileen Celestin MD at 12:54 EDT ,
== END | disposition home or self-care (01) ==
LOC: US 12:45
PROVIDERS: PCP Family Medicine; Referring Provider Nurse Practitioner Family; Visit Provider Nurse Practitioner Family
DX: R22.1 Localized swelling, mass and lump, neck (principal)
CPT/HCPCS: 76536

== ENCOUNTER → 2023-01-25 | Outpatient (CLI) | payer MEDICARE, OTHER, SELFPAY ==
--- NOTE | 2023-01-24 14:50 | FLU_PTH ---
PATIENT: BRINA NATHAN Jr. LOC: [facility] U#:[id number] AGE/SX: 72/M ROOM: RE01/25/[address]: Dr. Yusuf Grier MD : 1950 BED: DIS: 01/25/2023 SPEC #: [id number] RECD: 01/25/23 10:24 STATUS: ROB REQ #: [id number] GLORIA: 01/24/23 14:[address]: Yusuf Grier DEPT: CYTOLOGY RECD BY: Maribel Grayson ENTERED: 01/25/23 10:51 SP TYPE: Fluid OTHR DR: Dr. Joseph Bourne DO Tissues: A - Thyroid gland, NOS B - Thyroid gland, NOS Procedures: Special Stain Group II Surgery Specimen Level IV Cytospin Fluid Cytology Other HEADER OPERATION: Fine needle aspiration lymph node in neck PRE-OP DIAGNOSIS: Enlarged lymph node TISSUE SUBMITTED: A - Neck lymph node fluid, B - Neck lymph node x4 slides DIAGNOSIS CYTOLOGY A. Neck lymph node fluid, fine needle aspiration (cytospin and cell block): Acellular specimen. B. Neck lymph node, fine needle aspiration (smears): Negative for malignant cells. See comment. ZEE:karan 01/26/2023 COMMENT B. The specimen consists of a few fragments of fibroadipose tissue. Lymphoid tissue is not identified. Correlation with clinical, radiologic findings and appropriate follow up are necessary. Excision of the lesion is suggested, if clinically indicated, for definite diagnosis. CYTOLOGY STUDY Slides are reviewed. CYTOLOGY GROSS A - Received is 30 ml of light pink cloudy fluid labeled with the patient's name and and designated per the requisition as neck lymph node. Submitted for cytology preparation including cell block. B - Received are four smears labeled with the patient's name and designated per the requisition as neck lymph node. Submitted for staining. / karan 01/25/2023 TC:5 CPT: 93487 x2, 78611
== END | disposition home or self-care (01) ==
LOC: LAB 10:29
PROVIDERS: PCP Family Medicine; Visit Provider Surgery
DX: R59.0 Localized enlarged lymph nodes (principal)
CPT/HCPCS: 88108; 88161; 88305; 88313

== ENCOUNTER 2023-02-04 10:16 | Day surgery (SDC) | payer MEDICARE, OTHER, SELFPAY ==
[2023-02-04 10:42] VITALS: BP 123/82; PULSE 63; RESP 12; TEMP 36.7; O2SAT 95; BMI 26.6
[2023-02-04] MEDS: Lactated Ringers 1,000 ML 15 ML IV (10:42)
--- NOTE | 2023-02-04 12:00 | MASS_PTH ---
PATIENT: BRINA NATHAN Jr. LOC: [facility] U#:[id number] AGE/SX: 72/M ROOM: RE02/04/[address]: Dr. Yusuf Grier MD : 1950 BED: DIS: 02/04/2023 SPEC #: [id number] RECD: 02/04/23 18:20 STATUS: ROB TANNER #: [id number] GLORIA: 02/04/23 12:[address]: Yusuf Grier DEPT: SURGICAL PATHOLOGY RECD BY: Felicitas Casey ENTERED: 02/07/23 08:38 SP TYPE: Mass OTHR DR: Dr. Joseph Bourne, DO Tissues: Neck, NOS Procedures: Surgery Specimen Level IV HEADER OPERATION: Excision, mass, lower back PRE-OP DIAGNOSIS: Cervical lymphadenopathy TISSUE SUBMITTED: Soft tissue mass of lower neck MICROSCOPIC DIAGNOSIS Soft tissue mass of lower neck, excisional biopsy: A piece of fibroadiopose and skeletal muscle tissue, no pathologic diagnosis. See comment. SJ: 02/08/2023 COMMENT Lymph node tissue is not present in the specimen. Correlation with clinical findings and appropriate follow up are necessary. MICROSCOPIC DESCRIPTION Slides are reviewed. GROSS DESCRIPTION Received in fixative is one container labeled with the patient name and designated soft tissue mass of lower neck. The specimen consists of an irregular piece of soft tissue with wire localization measuring 4 x 1. X 1 cm. Sections do not reveal any mass lesions. The specimen is totally submitted in two cassettes. /ZEE:selwyn 02/07/23 TC:4 [facility]: [id number]
--- NOTE | 2023-02-04 12:02 | HP.PCM_ITS ---
History and Physical Date of Admission: 02/04/23 Date of Service: 01/24/23 MR#: [id number] Acct: [id number] Name: BRINA NATHAN Jr. Rep #: [id number] : 1950 Provider: Dr. Yusuf Grier MD Age/Sex: 72/M Location: [facility] Status: Signed Intake Vital Signs 08/18/2304:37 01/24/2314:26 Height 5 ft 4 in 5 ft 7 in Weight: 156 lb 166 lb BMI 26.7 25.9 BP 149/72 H 128/74 H Blood Pressure Location Rt brachial Lt brachial Position Sitting Sitting Respiration 18 18 Pulse 63 Pulse Source Monitor Temp 98.0 F Pulse Oximetry (%) 95 Oxygen Delivery Method room air Intake Visit Reasons: MASS ON NECK Chief Complaint: neck mass Manifest Clerk Required: No Is patient in pain?: No Allergies No Known Allergies Allergy (Verified 01/24/23 14:16) Medications Handicap Placcard #1 ea 07/18/18 [Rx Confirmed 01/24/23] albuterol sulfate 90 mcg/actuation aerosol inhaler (Ventolin HFA) 1 - 2 puff inhalation Q4H PRN PRN Wheezing #1 ea 03/24/21 [Rx Confirmed 01/24/23] ascorbic acid (vitamin C) 1,000 mg tablet,extended release 2,000 mg PO DAILY 03/30/21 [History Confirmed 01/24/23] cholecalciferol (vitamin D3) 25 mcg (1,000 unit) capsule 25 mcg PO BID 03/30/21 [History Confirmed 01/24/23] vitamins A,C,O-qwom-ttzizf 4,296 mcg-226 mg-90 mg capsule (PreserVision AREDS) 1 cap PO BID 03/30/21 [History Confirmed 01/24/23] elderberry fruit 50 mg/5 mL oral syrup 100 mg PO DAILY 05/03/22 [History Confirmed 01/24/23] tiotropium 2.5 mcg-olodaterol 2.5 mcg/actuation mist for inhalation (Stiolto Respimat) 2 puff inhalation DAILY #4 grams 08/18/22 [Rx Confirmed 01/24/23] PFSH Medical History Alcohol use Arthritis Back pain Bacterial pneumonia Bruising Cancer COPD (chronic obstructive pulmonary disease) Former smoker History of irregular heartbeat History of steroid therapy Prostate cancer Prostate disease Wears dentures Wears glasses Surgical History History of back surgery History of hip replacement History of neck surgery History of prostatectomy History of surgery on lower extremity Family History Father Cancer Prostate Social History Smoking Status: Former smoker Tobacco: How many years used: 50 how long ago did patient quit smokin, 2ppd second hand exposure: Yes alcohol intake: never substance use type: does not use HPI HPI HPI: Patient is a 72 male who presents for evaluation of a newly noticed neck nodule. He is referred from Dr. Bourne. He states that he first noticed this area approximately 1 month ago and found it all at since he had not recently had a sore throat. Since that time he has appreciated increasing discomfort and finds it to be sore. He is also appreciated some increasing difficulty with swallowing. His , who accompanies him, confirms that he has been rubbing the area often and she is concerned this represents cancer. Mr. Nathan reports an approximately 15 pound weight gain over the past couple years. He denies any night sweats. Mr. Nathan has a history of a swollen lymph node, but this was previously on the left side and attributed to a impacted tooth. He does note that this area disappeared spontaneously after his tooth infection was addressed. Mr. Nathan is reasonably healthy with few medical diagnoses. He does note in 2012 he was diagnosed with prostate cancer and underwent robotic prostatectomy with 4.5 years of surveillance detecting no significant PSA. He also has a history of smoking for 50 years 1 to 3 packs/day. 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 Mr. Nathan denies any use of blood thinners. ROS General General: No weight change, appetite, fatigue, colon cancer, breast cancer or weakness HEENT HEENT: No difficulty swallowing, eye injury, eye surgery, swollen glands or hoarseness Endo Endocrine: No thyroid disease, diabetes mellitus, thyroid cancer, Hair loss, heat intolerance or cold intolerance Musc Musculoskeletal: Yes back problems and arthritis; No rheumatoid arthritis, gout or joint pain Cardio Cardiovascular: No murmur, pacemaker, heart disease, atrial fibrillation, high blood pressure, heart attack, heart stent, palpitations, shortness of breat with exertion or chest pain Psych Psychiatric: No depression, anxiety or hearing voices Resp Respiratory: No shortness of breath, No sleep apnea, No cough, Yes COPD, No asthma, No emphysema and No wheezing Gastro Gastrointestinal: No abdominal pain, No nausea or vomiting, No diarrhea, Yes constipation, No blood in stool, No acid reflux, No hemorrhoids, No ulcers, No gallbladder problem and No black,tarry stools Saw Hematologic: No blood thinners, No blood disorders, No bleeding, No anemia and No blood clots Neuro Neurologic: No system reviewed and no additional complaints, except as documented, No as per HPI, No abnormal gait, No abnormal hearing, No abnormal movements, No abnormal speech, No behavioral changes, No burning sensations, No confusion, No convulsions, No disequilibrium, No dizziness, No localized weakness, No frequent falls, No headache(s), No lack of coordination, No loss of vision, No memory loss, No numbness, No other visual disturbances, No radicular pain, No restless legs, No sensory deficit, No syncope, No tingling, No tremor(s), No weakness and No other Exam Const General: cooperative and anxious Orientation: alert, awake and oriented x3 Neck Other: Palpable level 6 nodule that is soft but tender to palpation. By ultrasound this measures 1.0 x 0.8 x 0.6 cm. There does appear to be a hilum present within this lymph node. Office Procedures Fine Needle Aspiration Provider Documentation Details: Indication: Abnormal suprasternal notch lymph node After obtaining patient consent and conducting a timeout amongst those present, the procedure was commenced by locating the suspicious nodule in the right mid portion of the suprasternal notch soft tissue using ultrasound. Superficially, the skin was cleaned with an alcohol swab and a wheal of local anesthetic was created after instilling 2 ml 1% lidocaine.. Then, under ultrasound guidance, multiple passes were made into the thyroid nodule using a 25-gauge needle. Once an adequate specimen was detected within the hub of the needle, this was handed off the field. A second pass was made in a similar manner using a 22-gauge needle. Unfortunately despite numerous passes very little material was back aspirated. I did try to plate what material was available but did not receive any specimen so I made the decision to perform a third pass with a another 25- gauge needle and syringe. This specimen, also, was passed off the field for cytopathologic evaluation. External pressure was applied to the neck to assist with hemostasis. Then the surface of the neck was cleaned, dried, and a bandage was applied. Patient was gradually returned to the sitting position and after short period of monitoring was dismissed. Wound care instructions and expe ctations regarding pathologic processing were discussed prior to dismissal. Complications: None Estimated blood loss: 2 ml Alert Baldomero Alert Billing: Yes (Lymph node FNA) Procedure Time Out Time Out Informed consent given: Yes Consent signed: Yes Time out checklist: patient, procedure, site marked/identified, positioning of patient, supplies available, allergies confirmed and team agrees on procedure Time out staff in room: Yes Time out verified: Yes Time out date: 01/24/23 Time out time: 14:50 Assessment and Plan Assessment and Plan (1) Cervical lymphadenopathy: Status: Acute Comment: This is a 72-year-old male with a past history of prostate cancer and significant smoking history who presents with a 1 month history of a tender suprasternal abnormal lymph node. There does not appear to be any inciting event. Patient denies any B type symptoms. In my independent exam and ultrasound of patient's neck I find this to be a superficial lymph node that almost appears separate from the remainder of the level 6 lymph node basin mem bers. Given the superficial nature and discrete appearance I recommended proceeding with a fine-needle aspiration to try to determine the etiology of this finding. Patient was receptive of this recommendation and the procedure was undertaken in uncomplicated fashion using local anesthetic and ultrasound guidance. Complete details of this procedure are recapitulated in the procedures section of this note. Despite significant effort, minimal material was aspirated, yet I do remain hopeful for patient's smears to be diagnostic. Patient, however, is informed that this may require an excisional biopsy to be diagnostic. Post procedure wound care instructions were given. Plan: ? Patient encouraged to keep head elevated and ice to the biopsy site ? We will follow-up with patient once cytopathology results are official I have examined the patient and the H&P has been reviewed. There are no clinical changes since date of exam. Procedure expectations were confirmed and neither the patient nor his family have any further questions. We will proceed to the operating room for excision of lower cervical neck lesion
[2023-02-04] MEDS: Cefazolin 2 GM in 0.9% Normal Saline (100mL Bag) 100 ML IV (12:04)
[2023-02-04] MEDS: Bupivacaine 0.25% 30 ML Vial (13:50)
--- NOTE | 2023-02-04 13:52 | EX.PCM.DISCH ---
Discharge Instructions Diet Discharge Diet: No restrictions Activity Discharge Activity: May Drive May shower in (days): 1 Ice area for (Minutes): 20 Dressing / Incision Call your doctor if your incision/area has: Continuous Slow Oozing, Sudden Increased Bleeding, Increased Pain/ Swelling, Increased Redness and Swelling at the incision site Remove Dressing in: 2 days Cleanse incision/area with: Soap & Water Follow Up Care Please Follow Up With: Yusuf Grier MD When: 10 days for wound check Test Results: Test results from this visit will be discussed in further detail at your follow-up appointment, if applicable. Discharge Plan Admission Primary Reason for Your Visit: Excision of lower neck mass Attending Provider: Yusuf Grier Primary Care Provider: Joseph Bourne Instructions Additional Instructions / Restrictions: Please keep head up the remainder of today and ice for first 48 hours post procedure Discharge Orders/Prescriptions Prescriptions: No Action ascorbic acid (vitamin C) 1,000 mg tablet extended release 2,000 mg PO DAILY PreserVision AREDS 14,320-226-200 acyd-bo-sojh capsule 1 cap PO BID cholecalciferol (vitamin D3) 25 mcg (1,000 unit) capsule 25 mcg PO BID Stiolto Respimat 2.5-2.5 mcg/actuation mist 2 puff INHALATION DAILY Qty: 4 11RF elderberry fruit 50 mg/5 mL syrup 100 mg PO BID albuterol sulfate [Ventolin HFA] 90 mcg/actuation HFA aerosol inhaler 1 - 2 puff inhalation Q4H PRN PRN (Reason: Wheezing) Qty: 1 0RF (DME) Handicap Placcard Qty: 1 0RF Rx Instructions: Length of Time: 99 months Referrals / Follow Up: Joseph Bourne DO [Primary Care Provider] - Disposition Disposition (needs filled in before D/C Order can be placed): Home, Self Care
--- NOTE | 2023-02-04 13:54 | PCM.OPRPT ---
Report of Operation Date of Procedure: 02/04/23 Pre-Operative Diagnosis: Lower neck mass concerning for abnormal lymph node with indeterminant cytopathology Post-Operative Diagnosis: Same Surgery/Procedure Performed:: Excision of lower neck mass via wire localization Description of Surgical Findings:: ? Wire localized approach to excision of lower neck mass just medial to the sternal insertion of the sternocleidomastoid muscle Surgeon: Yusuf Grier yarn rewinder: Gianna Earl yarn rewinder: Leroy Rodriguez Type of Anesthesia: General/Supplemental Anesthesiologist: Raheem Mcfarland Specimen's removed: Central lower neck mass Estimated Blood Loss (mL): 15 Description of Procedure: After appropriate identification in the preoperative holding area patient was brought to the operating room where he was positioned in a supine position. There he underwent a general endotracheal anesthetic. Preoperative antibiotics were infused. He was placed on a shoulder roll and ultrasound guidance was used to place a Kopan's needle and patient's anterior lower cervical neck lesion. His anterior neck was prepped and draped in usual sterile fashion. A formal timeout followed to confirm both patient and procedure. I then made a transverse incision approximately 3 cm long along the mid aspect of the patient's mass. This was carried deeply through the tissue with use of electrocautery to maintain hemostasis as we proceeded. I then dissected laterally in the subcutaneous space to deliver our localization wire into this incision. Tediously I began circumferential dissection of the soft tissue about the wire employing bipolar energy to maintain hemostasis and seal any lymphatics as I proceeded. Despite this great care I did encounter with some bleeding from deeper in the cavity. It was not immediately apparent what the source of this bleeding was so I made the decision to apply pressure and approach our specimen from a different angle. The specimen was ultimately removed with the localization wire intact. Cavity was inspected for bleeding and I found evidence of a bleeding anterior jugular vein along the sternohyoid muscle medially as well as some mild oozing from the level 6 cervical lymph node packet. The former was addressed with a 4-0 silk suture ligature. The latter was addressed with selective electrocautery. To try to ensure hemostasis I requested a Valsalva maneuver from anesthesia and this was held for approximately 5 seconds before it was released. No bleeding was seen with this maneuver and 1 more examination was made for hemostasis in the cavity. Finding this to be intact the cavity was closed with interrupted 3-0 Vicryl in a deep dermal fashion followed by 4-0 Monocryl in a running subcuticular fashion. In addition to the general anesthetic by anesthesia, local anesthetic was used to try to maintain patient's comfort with a total volume of 2 mL 0.25% bupivacaine plain. The specimen was passed off the operative field for permanent pathology. Steri-Strips and dressing were applied and the patient's sedation was lightened and he was transferred to the PACU bed for his ongoing care. Grafts/Implants Used: None Complications None Procedures Integumentary 114x: [id number] Exc h-f-nk-sp b9+manan 2.1-3
[2023-02-04 14:08] VITALS: BP 123/82; BP 138/72; PULSE 93; RESP 18; TEMP 36.6; O2SAT 100
[2023-02-04 14:16] VITALS: BP 123/82; BP 140/76; PULSE 90; RESP 18; O2SAT 96
[2023-02-04 14:30] VITALS: BP 123/82; BP 138/87; PULSE 93; RESP 18; O2SAT 98
[2023-02-04 14:45] VITALS: BP 123/82; BP 130/75; PULSE 80; RESP 18; TEMP 36.6; O2SAT 95
[2023-02-04 15:06] VITALS: BP 123/82
== END 2023-02-04 15:22 | disposition home or self-care (01) ==
LOC: SDC 10:17 → AC 10:18
PROVIDERS: PCP Family Medicine; Referring Provider Surgery; Visit Provider Surgery
PROC: (CPT 21555; principal; 2023-02-04 11:45)
DX: R22.1 Localized swelling, mass and lump, neck (principal); J44.9 Chronic obstructive pulmonary disease, unspecified; Z87.891 Personal history of nicotine dependence; Z79.899 Other long term (current) drug therapy; Z99.81 Dependence on supplemental oxygen
CPT/HCPCS: 21555; 88305; J7120; J2405; J3490

== ENCOUNTER → 2023-03-14 | Outpatient (CLI) | payer MEDICARE, OTHER, SELFPAY ==
--- NOTE | 2023-03-14 16:10 | US_ITS ---
STUDY: SUPERFICIAL ULTRASOUND - SOFT TISSUE NECK REASON FOR EXAM: Male, 72 years old. f/u from surgery--LYMPH NODES TECHNIQUE: A superficial ultrasound was performed with real-time and static solis-scale imaging. COMPARISON: None. FINDINGS: Multiple longitudinal and transverse ultrasound images of the neck demonstrate multiple normal sized lymph nodes with normal fatty warren within multiple zones of the neck.. In the area in the right side of the neck at the site of the palpable abnormality, there is a 1 cm irregular anechoic area within the superficial subcutaneous fat which may represent some septated fluid. This is likely postoperative. In the midline inferiorly at the site of a palpable abnormality, there is a 0.4 x 1.2 cm oval hypoechoic mass with central increased echogenicity consistent with a normal lymph node. US/Head/Neck Soft Tissue IMPRESSION: Ultrasound confirms a 1 cm area of septated fluid which is likely postoperative in a 1.2 cm lymph node corresponding to the palpable abnormalities. Electronically Signed: Tom Gonzalez MD at 18:07 EST ,
== END | disposition home or self-care (01) ==
LOC: US 16:10
PROVIDERS: PCP Family Medicine; Referring Provider Surgery; Visit Provider Surgery
DX: R59.0 Localized enlarged lymph nodes (principal)
CPT/HCPCS: 76536

== ENCOUNTER → 2023-04-26 | Outpatient (CLI) | payer MEDICARE, OTHER, SELFPAY ==
--- NOTE | 2023-04-26 14:03 | RAD_ITS ---
STUDY: X-RAY - ABDOMEN/PELVIS REASON FOR EXAM: Male, 72 years old. Change in bowel habit, bloating TECHNIQUE: Single AP view of the abdomen / pelvis. COMPARISON: None. FINDINGS: Normal visualized lung bases. There is an unremarkable bowel gas pattern. The visualized liver, spleen and kidneys are grossly normal in size and morphology. Mild scoliosis. Hardware L2-3. Spondylosis and degenerative disc disease. Right total hip arthroplasty. Normal visualized osseous structures. RAD/Abdomen Single View IMPRESSION: No acute disease Electronically Signed: Jesse Andrea MD at 17:57 EST ,
== END | disposition home or self-care (01) ==
LOC: MTRAD 14:01
PROVIDERS: PCP Family Medicine; Referring Provider Nurse Practitioner Family; Visit Provider Nurse Practitioner Family
DX: R14.0 Abdominal distension (gaseous) (principal); R19.4 Change in bowel habit
CPT/HCPCS: 74018

== ENCOUNTER → 2023-07-04 | Outpatient (CLI) | payer MEDICARE, OTHER, SELFPAY ==
[2023-07-04 12:25] LABS: Erythrocyte Sedimentation Rate 12 mm/hr (0-20)
[2023-07-04 12:28] LABS: Absolute Lymphocyte Count 0.94 X10^3/uL (0.83-4.51); Absolute Neutrophil Count 9.2 X10^3/uL (2.0-7.7); Basophil# 0.05 X10^3/uL; Basophil% 0.4 % (0-1); Eosinophil# 0.22 X10^3/uL; Eosinophils% 1.9 % (0-5); Hematocrit 43.2 % (40-54); Hemoglobin 14.3 g/dL (13.0-16.5); Lymphocyte # 0.94 X10^3/ul (0.83-4.51); Mean Corp Hgb Conc 33.1 g/dL (32-36); Mean Corpuscular Hgb 32.3 pg (27.0-32.0); Mean Corpuscular Volume 97.5 fL (80-94); Monocyte# 1.12 X10^3/uL; Monocyte% 9.6 % (0-10); NRBC Flagged by Analyzer 0 % (0-5); Neutrophil # 9.18 X10^3/uL (2.7-7.7); Neutrophil % 78.4 % (47-70); Platelet Count 269 K/mm3 (150-450); RBC Distribution Width SD 46.5 fl (35.1-43.9); Red Blood Count 4.43 M/mm3 (4.6-6.2); White Blood Count 11.7 K/mm3 (4.4-11.0)
[2023-07-04 12:35] LABS: AST(SGOT) 13 U/L (15-37); Alanine Aminotransfer ALT/SGPT 22 U/L (16-61); Albumin, Serum 3.1 g/dL (3.2-5.0); Alkaline Phosphatase 86 U/L (45-117); Bilirubin, Direct 0.12 mg/dL (0.00-0.30); Globulin 3.1 g/dL (2.2-4.2); Protein, Total 6.2 g/dL (6.4-8.2)
[2023-07-04 15:58] LABS: Anion Gap 8 (5-15); BUN 29 mg/dL (7-18); BUN/Creat Ratio 32.2 RATIO (10-20); Calcium,Total 8.9 mg/dL (8.5-10.1); Chloride 108 mmol/L (98-107); EST Glomerular Filtration Rate 88 mL/min (>60); Est Glom Filt Rate - Afr Amer 106 mL/min (>60); Glucose 129 mg/dL (74-106); Potassium 4.1 mmol/L (3.5-5.1); Sodium Level 138 mmol/L (136-145)
== END | disposition home or self-care (01) ==
PROVIDERS: PCP Family Medicine; Visit Provider Nurse Practitioner Family
DX: E88.09 Other disorders of plasma-protein metabolism, not elsewhere classified (principal); R14.0 Abdominal distension (gaseous); R18.8 Other ascites
CPT/HCPCS: 36415; 80048; 80076; 85025; 85652; 86140

== ENCOUNTER → 2023-07-21 | Outpatient (CLI) | payer MEDICARE, OTHER, SELFPAY | END | disposition home or self-care (01) | LOC: LABSPEC 13:02 | PROVIDERS: PCP Family Medicine; Referring Provider Nurse Practitioner Acute Care; Visit Provider Nurse Practitioner Acute Care | DX: J44.9 Chronic obstructive pulmonary disease, unspecified (principal) | CPT/HCPCS: 87070; 87077; 87186; 87205 ==

== ENCOUNTER → 2023-08-08 | Outpatient (CLI) | payer MEDICARE, OTHER, SELFPAY ==
--- NOTE | 2023-08-08 08:28 | CT_ITS ---
STUDY: CT ABDOMEN AND PELVIS WITH CONTRAST REASON FOR EXAM: Male, 73 years old. ABD PAIN/BLOATING/CHANGE IN BOWEL HABITS RADIATION DOSAGE (If Supplied By Facility): CTDIvol = ( 17.73 ) mGy, DLP = ( 751.80 ) mGycm TECHNIQUE: Transaxial images were obtained from the dome of the diaphragm to the symphysis pubis with oral contrast. Oral and IV Readi-CAT and 100mL Isovue-300 was administered. Sagittal and coronal images were reconstructed. Individualized dose optimization techniques were used for this CT. COMPARISON: None. FINDINGS: The visualized lung bases are unremarkable. Coronary artery calcification. Scattered small hepatic cysts. Fatty infiltration of the liver. Normal gallbladder and extrahepatic biliary system. Normal spleen. Normal pancreas. Normal bilateral adrenal glands. 2.5 mm nonobstructive calculus in the lower pole of the right kidney. Normal left kidney. Normal visualized stomach. Normal small intestine. There are scattered colonic diverticula consistent with diverticulosis. The appendix is visualized and appears normal. There is diffuse atherosclerotic calcification of the abdominal aorta and its major visceral branches, without a demonstrated aneurysm. Normal inferior vena cava. Normal retroperitoneum. Normal urinary bladder. Normal abdominal wall. There are diffuse degenerative changes of the visualized lumbar spine. Prior laminectomy and fusion at the L2-L3 level. Status post right hip replacement. CT/Abdomen/Pelvis WITH Contrast IMPRESSION: Small hepatic cysts. Fatty infiltration of the liver. Nonobstructive calculus in the lower pole calyx of the right kidney. Electronically Signed: Chandra Cummings MD at 15:32 EDT ,
[2023-08-08 08:51] LABS: CREATININE FINGERSTICK < 1.0 mg/dL (0.70-1.30); EGFR FINGERSTICK > 60.0000 mL/min (>60)
== END | disposition home or self-care (01) ==
LOC: CT 08:25
PROVIDERS: PCP Family Medicine; Referring Provider Family Medicine; Visit Provider Family Medicine
DX: R10.9 Unspecified abdominal pain (principal); R14.0 Abdominal distension (gaseous); R19.4 Change in bowel habit
CPT/HCPCS: 74177; Q9967

== ENCOUNTER → 2023-11-01 | Outpatient (CLI) | payer MEDICARE, OTHER, SELFPAY ==
--- NOTE | 2023-11-01 17:55 | CT_ITS ---
EXAM: CT CHEST, LUNG CANCER SCREENING WITHOUT INTRAVENOUS CONTRAST CLINICAL INDICATION: smoker TECHNIQUE: Helically acquired images were obtained of the chest without intravenous contrast using low dose (LDCT) lung cancer screening protocol. This CT exam was performed using one or more of the following dose reduction techniques: automated exposure control, adjustment of the mA and/or kV according to patient size, and/or use of iterative reconstruction technique. COMPARISON: 07/12/2022 FINDINGS: LUNGS AND PLEURAL SPACES: There is a spiculated lesion in the left lung apex that measures 1.3 x 0.9 x 1.5 cm. There are emphysematous changes seen within both lungs. No pleural effusion or thickening. No pneumothorax. HEART: Unremarkable. Heart size is normal. No pericardial effusion. No significant coronary artery calcifications. MEDIASTINUM: Unremarkable. No mediastinal or hilar adenopathy. Esophagus is unremarkable. No hiatal hernia. THYROID: Unremarkable. No thyroid lesions. BONES/JOINTS: Unremarkable. No suspicious lytic or blastic abnormality. VASCULATURE: Unremarkable. Thoracic aorta is non-dilated. LYMPH NODES: Unremarkable. No enlarged lymph nodes. OTHER FINDINGS: This was not present on the previous exam. CT/Low Dose CT Lung Screening IMPRESSION: Spiculated nodule in the left lung apex which was not present on the previous examination. Lung-RADS score: 4X - Very Suspicious. There are additional features or imaging findings that increase the suspicion of malignancy. Recommend chest CT with or without contrast, PET/CT and/or tissue sampling depending on the probability of malignancy and comorbidities. PET/CT may be used when there is a >=8 mm solid component. For new large nodules that develop on an annual repeat screening CT, a 1 month LDCT may be recommended to address potentially infectious or inflammatory conditions. Electronically Signed: Luis Crenshaw MD at 23:35 EDT ,
== END | disposition home or self-care (01) ==
LOC: CT 17:53
PROVIDERS: PCP Family Medicine; Referring Provider Nurse Practitioner Acute Care; Visit Provider Nurse Practitioner Acute Care
DX: Z12.2 Encounter for screening for malignant neoplasm of respiratory organs (principal); F17.210 Nicotine dependence, cigarettes, uncomplicated
CPT/HCPCS: 71271

== ENCOUNTER → 2023-11-18 | Outpatient (CLI) | payer MEDICARE, OTHER, SELFPAY ==
[2023-11-18 16:06] LABS: Platelet Count 312 K/mm3 (150-450)
[2023-11-18 16:12] LABS: International Normalized Ratio 1.1; Prothrombin Time (Protime)PT. 14.2 SECONDS (11.7-14.9)
[2023-11-18 16:14] LABS: Partial Thromboplast Time 25.9 Seconds (24.1-36.2)
== END | disposition home or self-care (01) ==
LOC: LAB 15:18
PROVIDERS: PCP Family Medicine; Referring Provider Nurse Practitioner Acute Care; Visit Provider Nurse Practitioner Acute Care
DX: I48.91 Unspecified atrial fibrillation (principal); R06.09 Other forms of dyspnea
CPT/HCPCS: 36415; 85049; 85610; 85730

== ENCOUNTER 2023-11-25 09:03 | Outpatient (CLI) | payer MEDICARE, OTHER, SELFPAY ==
[2023-11-25] VITALS (16 sets, daily range): BP systolic 99–141; BP diastolic 59–97; PULSE 70–85; RESP 14–18; TEMP 36.3; O2SAT 92–99; BMI 24.9
--- NOTE | 2023-11-25 | ASPIGT_PTH ---
PATIENT: BRINA NATHAN Jr. LOC: [place] U#:[id number] AGE/SX: 73/M ROOM: RE11/25/[address]: YUMI Abebe : 1950 BED: DIS: 11/25/2023 SPEC #: [id number] RECD: 11/25/23 10:15 STATUS: ROB REManju #: [id number] GLORIA: 11/25/23 00:[address]: Jessica Bentley NP DEPT: SURGICAL PATHOLOGY RECD BY: Goldy Quintero ENTERED: 11/25/23 10:51 SP TYPE: ASP RAD OTHR DR: Dr. Joseph Bourne DO Tissues: Lung, NOS Procedures: FNA Specimen Adequacy Special Stain Group II Special Stain Group I Surgery Specimen Level IV AFB Stain (control) GMS Stain (control) Imprint (control) HEADER OPERATION: Left lung biopsy PRE-OP DIAGNOSIS: Left lung TISSUE SUBMITTED: 20 gauge x 5 cores MICROSCOPIC DIAGNOSIS Left lung, CT guided core biopsy: Extensive necrotizing granulomatous inflammation. Negative for malignancy. See comment. ZEE/ 11/28/2023 COMMENT The specimen is evaluated at the time of biopsy by Dr. Bermudez. Immediate Evaluation = Negative for malignant cells. A few granulomas are noted Special stains for acid fast bacilli and fungi are negative for organisms; matched controls are appropriate. Correlation with clinical, radiologic findings and appropriate follow up are necessary. Rebiopsy is suggested, if clinically indicated. Case has been reviewed in consultation with Dr. Srinivasan who concurs with the above diagnosis. IDC:AM MICROSCOPIC DESCRIPTION Slides are reviewed. GROSS DESCRIPTION Received in fixative is one container labeled with the patient's name and designated Left lung biopsy. The specimen consists of multiple fragments of light nguyen soft tissue that in aggregate measure 1.0 x 0.2 x 0.1 cm. The specimen is totally submitted in one cassette. Two touch imprints are prepared at the time of core biopsy. ZEE/ 11/25/2023 TC:3 CPT:94559,[id number]
[2023-11-25] MEDS: 0.9% Normal Saline (250mL Bag) 250 ML 15 ML IV (10:02)
[2023-11-25] MEDS: Midazolam 2 MG/2 ML Syringe IV ×2 (10:04→10:15)
[2023-11-25] MEDS: fentaNYL 100 MCG/2 ML Ampul IV (10:05)
[2023-11-25] MEDS: Lidocaine 2% (20 ml mdv) 20 ML Vial INFILT (10:17)
--- NOTE | 2023-11-25 10:32 | RAD_ITS ---
STUDY: X-RAY CHEST REASON FOR EXAM: Male, 73 years old. immediate post lung biopsy -- Immediately post lung biopsy TECHNIQUE: AP inspiration and expiration views. COMPARISON: Comparison is made with prior study March 24, 2021. FINDINGS: I suspect a tiny left apical pneumothorax on the immediate post left lung biopsy radiographs. RAD/Chest Insp/Exp 2 View IMPRESSION: I suspect a tiny left apical pneumothorax on the immediate post left lung biopsy radiographs. Electronically Signed: Chandra Cummings MD at 11:06 EDT ,
--- NOTE | 2023-11-25 12:30 | RAD_ITS ---
STUDY: X-RAY CHEST REASON FOR EXAM: Male, 73 years old. 2 hour post lung biopsy -- 2 hours post lung biopsy TECHNIQUE: PA inspiration expiration views. COMPARISON: Comparison is made with prior study done earlier in the day. FINDINGS: Stable minimal left apical pneumothorax. The patient is asymptomatic. RAD/Chest Insp/Exp 2 View IMPRESSION: Stable minimal left apical pneumothorax. The patient is asymptomatic. Electronically Signed: Chandra Cummings MD at 13:40 EDT ,
--- NOTE | 2023-11-25 14:13 | PRO.PCM_ITS ---
Procedure Report Date of Procedure: 11/25/23 Assessment & Plan Assessment/Plan (1) Lung nodule: PLAN: PROCEDURE: CT GUIDED CORE NEEDLE LUNG BIOPSY ORDERING PROVIDER: Jessica Bentley CNP INDICATION: Male, 73 years old. Left upper lobe lung nodule. PROVIDER: DAVID Melara CONSENT: Written informed consent was obtained having explained the risks, benefits and alternatives in detail with the patient and who accepted the risks and agreed to proceed. Laboratory review and clinical assessment was performed. PRE-PROCEDURE SEDATION ASSESSMENT: Current history and physical dictated by referring physician and reviewed. No clinical changes since date of exam. Patient has a Mallampati Score of Class 2 and ASA Class of 3. PROCEDURAL SEDATION PROTOCOL: The Drugs used were: 2 mg Versed, IV, and 50 mcg Fentanyl, IV. The sedation time was: 24 minutes, starting at 1004 and terminated at 1028. The procedural sedation protocol was independently monitored by the department nurse. RADIATION DOSAGE (If Supplied By Facility): CTDIvol = 16.94 mGy, DLP = 626.78 mGycm Individualized dose optimization techniques were used for this CT. TECHNIQUE: The patient was placed in a prone position. A noncontrast CT was performed to localize the lesion in the left upper lobe. The skin surface was prepped and draped in a sterile fashion. 2% lidocaine was used for local anesthesia. Using CT guidance, a 20-gauge coaxial biopsy device was advanced to the periphery of the lesion. A total of 5 core specimens were obtained. Specimens were microscopically reviewed by pathology in the CT suite and placed in formalin solution. BioSentry tract sealant system was deployed at the biopsy site, and the biopsy needle was removed. A sterile occlusive dressing was applied to the biopsy site. The patient tolerated the procedure well. An immediate chest xray was ordered, per protocol. A negative biopsy does not exclude malignancy. Further imaging or clinical followup based on patient condition and degree of clinical suspicion for ma lignancy. Suggest rebiopsy, if biopsy results do not match with clinical scenario. IMPRESSION: 1. CT directed core needle biopsy of left upper lobe nodule using CT image guidance with image documentation as described. Pathology results are pending. 2. Procedural Sedation protocol utilized with independent monitoring by the department nurse. Procedures Radiology Radiology CT Procedures: [id number] Biopsy Lung
== END 2023-11-25 23:59 | disposition home or self-care (01) ==
LOC: CT 09:05
PROVIDERS: PCP Family Medicine; Referring Provider Nurse Practitioner Acute Care; Visit Provider Nurse Practitioner Acute Care
DX: J84.10 Pulmonary fibrosis, unspecified (principal); J44.9 Chronic obstructive pulmonary disease, unspecified; Z79.51 Long term (current) use of inhaled steroids; Z87.891 Personal history of nicotine dependence
CPT/HCPCS: 32408; 71046; 77012; 88172; 88305; 88312; 88313; 99156; J7050; A4216; C2613

== ENCOUNTER 2023-12-14 06:30 | Day surgery (SDC) | payer MEDICARE, OTHER, SELFPAY ==
[2023-12-14] VITALS (9 sets, daily range): BP systolic 115–125; BP diastolic 65–103; PULSE 69–88; RESP 16–18; TEMP 36.1–36.8; O2SAT 93–96; BMI 23.4
--- NOTE | 2023-12-14 06:44 | PCM.OP.BLANK ---
Problems Associated Problem List Diagnoses (1) Scalp cyst: Operative Report Date of Procedure: 12/14/23 Surgery/Procedure Date: 14 Dec 2023 Incision/Procedure Start Time: 8:16 am Incision Close/Procedure End Time: 8:35 am PATIENT: Kris Tate SURGEON: Kris Marina MD PRE-OPERATIVE DIAGNOSIS: Left posterior scalp cyst POST-OPERATIVE DIAGNOSIS: Same PROCEDURE PERFORMED: 1) Excision of left occipital scalp cyst, 1 x 1.2 centimeters (CPT 37710) 2) intermediate closure of left occipital scalp wound following cyst removal, 2.3 centimeters (CPT 46689) OPERATIVE FINDINGS: Appeared to be an epidermal inclusion cyst within the subcutaneous tissue plane. INDICATIONS: Kris Tate is a 73-year-old male with history of COPD as well as a cervical spinal fusion who presents for excision of his left occipital scalp cyst. Plan is for excision and closure today under local and sedation. I talked the patient extensively about the risks of surgery, including bleeding, infection, damage to surrounding structures (nerves, with possible numbness/pain), surgical site dehiscence and wound formation, need for wound care, need for repeat operations, failure to obtain the desired result, DVT/PE, and the risks of anesthesia including . All of their questions were answered, and they agreed to proceed with surgery. The mass was marked in preoperative holding with the patient in agreement and we had the correct spot. OPERATIVE DETAILS: Patient was correct identified in preoperative holding and taken back to the operating room. A timeout was performed. He was administered some sedation and 20 cc of a 50-50 mixture of 1% lidocaine with epinephrine 1:100,000 and 0.25% Marcaine with epinephrine 1-200,000. He was given time to take effect and he was prepped and draped in sterile fashion. 15 blade scalpel was used to make a direct incision over the cyst and careful dissection with tenotomy scissors was performed around the mass and it was excised in 1 piece. It was well-approximated. Was sent to pathology. The wound was irrigated with copious amounts normal saline. The mass measured 1 by 1.2 centimeters. An intermediate closure with 3-0 Monocryl deep sutures followed by marium was performed for closure of 2.3 centimeters. Bacitracin was applied to the incision as well as an ABD and stockinette. Patient tolerated the procedure well was awakened and taken to the PACU in stable condition. EBL: 5 cc Anesthesia: Local and sedation ASA: 3 Antibiotics: 2 grams Ancef IVF: 200 cc NS UOP: Not measured Transfusions: None POST-OPERATIVE PLAN: Okay to take dressing off tomorrow. Follow-up pathology and follow-up in clinic in 1 week. No heavy lifting/strenuous activity. [place] out in 2 weeks.
[2023-12-14] MEDS: Lactated Ringers 1,000 ML 15 ML IV (06:45)
--- NOTE | 2023-12-14 06:50 | PCM.HP.STD ---
HPI - General HPI Narrative BRINA NATHAN, is a 73 M who presents for left occipital scalp cyst excision. Current Encounter (DATE OF SURGERY H&P UPDATE): I saw and examined the patient this morning in pre-operative holding. We discussed risks and benefits of today's surgery and they would like to proceed. NO CHANGE in health history since last seen and evaluated. Ready to proceed with surgery. [facility] Medical History (Updated 12/12/23 @ 08:19 by Charlotte Perez) Chewing tobacco dependence Easy bruising Macular degeneration On home oxygen therapy Former smoker Emphysema, unspecified History of echocardiogram History of stress test Cancer Wears dentures Wears glasses Alcohol use History of steroid therapy Arthritis Prostate disease Back pain Former smoker History of irregular heartbeat Prostate cancer COPD (chronic obstructive pulmonary disease) Home Medications ?Medication ?Instructions ?Recorded ?Last Taken ?Type ascorbic acid (vitamin C) 1,000 mg 2,000 mg PO DAILY 03/30/21 Unknown History tablet,extended release cholecalciferol (vitamin D3) 25 25 mcg PO BID 03/30/21 Unknown History mcg (1,000 unit) capsule vitamins A,C,U-pqzl-swmzof 4,296 1 cap PO BID 03/30/21 Unknown History mcg-226 mg-90 mg capsule (PreserVision AREDS) elderberry fruit 50 mg/5 mL oral 100 mg PO BID 05/03/22 Unknown History syrup albuterol sulfate 90 mcg/actuation 1 - 2 puff inhalation Q4H PRN PRN 03/02/23 Unknown Rx aerosol inhaler (Ventolin HFA) Wheezing #8.5 grams Handicap Placcard #1 ea 04/26/23 Unknown Rx tiotropium 2.5 mcg-olodaterol 2.5 2 puff inhalation DAILY #4 grams 08/18/23 Unknown Rx mcg/actuation mist for inhalation (Stiolto Respimat) ipratropium 0.5 mg-albuterol 3 mg 3 ml inhalation Q4H PRN PRN SOB 11/18/23 Unknown Rx (2.5 mg base)/3 mL nebulization &/OR WHEEZING #180 mL soln Allergy/AdvReac Type Severity Reaction Status Date / Time No Known Allergies Allergy Verified 12/12/23 08:16 Family History Father Cancer Prostate Surgical History (Updated 12/12/23 @ 08:19 by Charlotte Perez) History of lung biopsy H/O excision of mass History of colonoscopy History of surgery on lower extremity History of neck surgery History of back surgery History of prostatectomy History of hip replacement Social History (Updated 12/01/23 @ 14:21 by Lesvia Vela) Smoking Status: Current some day smoker tobacco type: smokeless tobacco Tobacco: How many years used: 50 how long ago did patient quit smokin, 2ppd second hand exposure: Yes alcohol intake: never substance use type: does not use additional social history: denies vaping, denies marijuana use, denies edibles, Uses chew denies use of aspirin and ibuprofen use. Physical Exam Narrative 3 x 4 cm cyst in the left occipital scalp, off of midline. It is mobile and appears to be quite superficial. No draining sinuses. Const General: cooperative HENMT Other: No lymphadenopathy in the neck region Assessment & Plan Assessment/Plan (1) Scalp cyst: PLAN: INTERVAL H&P PLAN, DATE OF SURGERY: We will proceed with surgery today. I talked the patient extensively about the risks of surgery, including bleeding, infection, damage to surrounding structures, surgical site dehiscence and wound formation, need for wound care, need for repeat operations (return of the cyst), failure to obtain the desired result, DVT/PE (albeit low Caprini at 4 and no general anesthesia), and the risks of anesthesia including . All of their questions were answered, and they agreed to proceed with surgery.
--- NOTE | 2023-12-14 07:16 | PRE.ANES_ITS ---
ASA Classification* ASA Classification ASA Classification: 3 Assessment & Plan Anesthesia* Anesthesia Assessment Anesthesia Assessment: Discussed sedation and/or anesthesia options, risks, benefits, and alternatives with patient/parents/legal guardian/POA. Questions invited. The patient/parents/legal guardian/POA seems to understand and agrees to proceed with anesthesia plan. Reviewed the physical assessment, medical history, allergy history and patient home medications list prior to surgery/procedure/anesthetic and documented any changes. Performed airway and anesthesia risk assessments. Anesthesia Type Anesthesia Type: MAC (GA bkup) Anesthesia Focused Assessment* Temperature: 98.3 F Pulse Rate: 71 Blood Pressure: 115/74 Respiratory Rate: 16 Pulse Ox: 95 Airway Assessment Mouth opens: >3 cm Mallampati Score: II Focused Labs Anesthesia Preop lab: CBC WBC 11.7 K/mm3 (4.4-11.0) H 07/04/23 10:06 RBC 4.43 M/mm3 (4.6-6.2) L 07/04/23 10:06 Hgb 14.3 g/dL (13.0-16.5) 07/04/23 10:06 Hct 43.2 % (40-54) 07/04/23 10:06 Plt Count 312 K/mm3 (150-450) 11/18/23 15:31 CHEMISTRY Potassium 4.1 mmol/L (3.5-5.1) 07/04/23 10:06 Sodium 138 mmol/L (136-145) 07/04/23 10:06 BUN 29 mg/dL (7-18) H 07/04/23 10:06 Creatinine 0.90 mg/dL (0.70-1.30) 07/04/23 10:06 Glucose 129 mg/dL (74-106) H 07/04/23 10:06 TSH 3.12 uIU/mL (0.358-3.74) 12/29/22 13:46 COAG PT 14.2 SECONDS (11.7-14.9) 11/18/23 15:31 Pre-Assessment Diagnosis/Proposed Procedure Planned Operative Procedure(s): (L) Left scalp cyst excision Anesthesia History 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 When Was Last Pacemaker Check QUESTION #4 FULL TEXT: You/Your Family Experience fever (hyperthermia) with Anesthesia Last Oral Intake Last Oral intake: Last Oral Intake NPO since 22:30 12/14/23 07:11 Meds taken in AM with sips of No 12/14/23 07:11 water? Meds patient instructed to take am of surgery PONV PONV - electricity trading analyst: PONV - electricity trading analyst Female No 12/12/23 08:20 HX of Motion Sickness No 12/12/23 08:20 HX of N/V After Surgery No 12/12/23 08:20 Non-Smoker No 12/12/23 08:20 Duration of Surgery greater Yes 12/12/23 08:20 than 60 minutes Number of Risk Factors 1 12/12/23 08:20 PONV Score Low Risk 12/12/23 08:20 Height & Weight Height & Weight: Anesthesia: Height & Weight Height 5 ft 7 in 12/14/23 07:11 Weight: 68 kg 12/14/23 07:11 Body Mass Index (BMI) 23.4 12/14/23 07:11 Respiratory Assessment Respiratory Assessment - electricity trading analyst: Respiratory Tract Infection Hx - electricity trading analyst Hx Respiratory Tract Infection No 12/12/23 08:20 STOP Sleep Apnea STOP Sleep Apnea - electricity trading analyst: STOP Sleep Apnea - electricity trading analyst Hx Hypertension No 12/12/23 08:20 Hx Sleep Apnea No 12/12/23 08:20 CPAP BIPAP Do you snore loudly (louder No 12/12/23 08:20 than talking or can be heard Do you often feel tired/ No 12/12/23 08:20 fatigued/ sleepy during daytime? Has anyone observed you stop No 12/12/23 08:20 breathing during sleep? STOP Results Negative 12/12/23 08:20 QUESTION #5 FULL TEXT : Do you snore loudly (louder than talking or can be heard through closed doors)? Tobacco Use History Tobacco Use History - electricity trading analyst: Tobacco Use History - electricity trading analyst Tobacco Use Smoking Status Current some day smoker 12/12/23 08:20 Hx Tobacco Use Yes: CHEWS TOBACCO 12/12/23 08:20 Years Smoking Packs Smoked per Day Smoking Cessation Date was within the last 15 years Hx Smoking Cessation Date 04/04/00 12/12/23 08:20 Hx Smoking Cessation No 12/12/23 08:20 Counseling Hematologic Medial History Hematologic Hx - electricity trading analyst: Hematologic Medical Hx - documentation coordinator Hx of Blood Transfusion No 12/12/23 08:20 Hx of Transfusion in last 3 No 12/12/23 08:20 Months Date of Last Transfusion (if within last 3 months) Ever experience any problems No 12/12/23 08:20 with transfusion(s)? Specify any problems Hx of Preganancy in last 3 N/A 12/12/23 08:20 Months Nurse Filling Out Transfusion VCHRISTIN 12/12/23 08:20 & Questions: Date: 12/12/23 12/12/23 08:20 Time: 08:21 12/12/23 08:20 Patient unable to answer at this time (ie. confused, unrespo /Reproduction History /Reproductive History - electricity trading analyst: /Reproductive Hx- electricity trading analyst Hx Now Gestational Age (in weeks): EDC: Hx Hx Para Hx Section SAB Active Medications Active Medications: Current Medications Generic Name Dose Route Start Last Admin Trade Name Freq PRN Reason Stop Dose Admin Cefazolin Sodium 2 gm/ Sodium 110 mls @ 150 mls/hr 12/14/23 08:00 Chloride IV 12/14/23 08:43 PREOP ONE Lactated Ringer's 1,000 mls @ 15 mls/hr 12/14/23 06:45 IV .Q48H LAURA PFSH Medical History Chewing tobacco dependence Easy bruising Macular degeneration On home oxygen therapy Former smoker Emphysema, unspecified History of echocardiogram History of stress test Cancer Wears dentures Wears glasses Alcohol use History of steroid therapy Arthritis Prostate disease Back pain Former smoker History of irregular heartbeat Prostate cancer COPD (chronic obstructive pulmonary disease) Home Medications ?Medication ?Instructions ?Recorded ?Last Taken ?Type ascorbic acid (vitamin C) 1,000 mg 2,000 mg PO DAILY 03/30/21 Unknown History tablet,extended release cholecalciferol (vitamin D3) 25 25 mcg PO BID 03/30/21 Unknown History mcg (1,000 unit) capsule vitamins A,C,Y-ykjj-razugd 4,296 1 cap PO BID 03/30/21 Unknown History mcg-226 mg-90 mg capsule (PreserVision AREDS) elderberry fruit 50 mg/5 mL oral 100 mg PO BID 05/03/22 Unknown History syrup albuterol sulfate 90 mcg/actuation 1 - 2 puff inhalation Q4H PRN PRN 03/02/23 Unknown Rx aerosol inhaler (Ventolin HFA) Wheezing #8.5 grams Handicap Placcard #1 ea 04/26/23 Unknown Rx tiotropium 2.5 mcg-olodaterol 2.5 2 puff inhalation DAILY #4 grams 08/18/23 Unknown Rx mcg/actuation mist for inhalation (Stiolto Respimat) ipratropium 0.5 mg-albuterol 3 mg 3 ml inhalation Q4H PRN PRN SOB 11/18/23 Unknown Rx (2.5 mg base)/3 mL nebulization &/OR WHEEZING #180 mL soln cephalexin 500 mg capsule 500 mg PO TID 7 days #21 caps 12/14/23 Unknown Rx oxycodone 5 mg tablet 5 mg PO Q8H pain 5 days #10 tabs 12/14/23 Unknown Rx Allergy/AdvReac Type Severity Reaction Status Date / Time No Known Allergies Allergy Verified 12/12/23 08:16 Family History Father Cancer Prostate Surgical History History of lung biopsy H/O excision of mass History of colonoscopy History of surgery on lower extremity History of neck surgery History of back surgery History of prostatectomy History of hip replacement Social History Smoking Status: Current some day smoker tobacco type: smokeless tobacco Tobacco: How many years used: 50 how long ago did patient quit smokin, 2ppd second hand exposure: Yes alcohol intake: never substance use type: does not use additional social history: denies vaping, denies marijuana use, denies edibles, Uses chew denies use of aspirin and ibuprofen use. Review of Systems (Anesthesia) ROS Narrative System reviewed and no additional complaints, except as documented.
[2023-12-14] MEDS: Ipratropium/Albuterol Sulfate 3 ML AMPUL.NEB INHALATION (07:31)
--- NOTE | 2023-12-14 08:00 | CYST_PTH ---
PATIENT: BRINA NATHAN Jr. LOC: [facility] U#:[id number] AGE/SX: 73/M ROOM: RE12/14/[address]: Dr. Brina Marina MD : 1950 BED: DIS: 12/14/2023 SPEC #: [id number] RECD: 12/14/23 11:44 STATUS: ROB REManju #: [id number] GLORIA: 12/14/23 08:[address]: Brina Marina DEPT: SURGICAL PATHOLOGY RECD BY: Goldy Quintero ENTERED: 12/14/23 12:09 SP TYPE: Cyst OTHR DR: Dr. Joseph Bourne, DO Tissues: CYST Procedures: Surgery Specimen Level III HEADER OPERATION: Left scalp cyst excision PRE-OP DIAGNOSIS: Scalp cyst TISSUE SUBMITTED: Scalp cyst MICROSCOPIC DIAGNOSIS Scalp cyst, excision: Epidermal inclusion cyst, fragmented. ZEE/ 12/15/2023 MICROSCOPIC DESCRIPTION Slides are reviewed. GROSS DESCRIPTION Received in fixative is one container labeled with the patient's name and designated Scalp cyst. The specimen consists of multiple fragments of nguyen-white soft tissue measuring in aggregate 2.0 x 2.0 x 0.3cm. The entire specimen is submitted in one cassette. 12/14/2023 TC:5 CPT:[id number]
[2023-12-14] MEDS: Cefazolin 2 GM in 0.9% Normal Saline (100mL Bag) 100 ML IV (08:02)
[2023-12-14] MEDS: Bupiv/Epi 0.25% 30 ML Vial (08:13)
[2023-12-14] MEDS: Lidocaine 1% /Epi 1:100 (20ml) 20 ML Vial (08:13)
[2023-12-14] MEDS: BACITRACIN/POLYMYXIN B 15 GM Tube 1 APPLIC (08:25)
--- NOTE | 2023-12-14 08:37 | PCM.POST.ANE ---
Anesthesia: Postop Eval I Current Vital Signs Temperature: 96.9 F Pulse Rate: 88 Blood Pressure: 125/103 Respiratory Rate: 18 Pulse Ox: 96 Oxygen Delivery Method: Room Air Assessment Airway patent: Yes Spontaneous unlabored respirations: Yes Mental status: Awake and Calm nausea: No Vomiting: No Anesthesia Complication: No Fluid Hydration Crystalloid volume administer (ml): 300 Total IV fluid infused: 300 Progress Note Post-operative progress note: DENIES PAIN; NO C/O Anesthesia document: Postop Eval 1 completed: Yes
--- NOTE | 2023-12-14 12:37 | POSTOPAN2_ITS ---
Anesthesia Postop Eval I Sum Postop Eval Completion status Anesthesia document: Postop Eval 1 completed: Yes Anesthesia Postop Eval I Summary Anesthesia Postop Eval I Summary: Anesthesia Postop Eval I: Assessment Summary Airway patent Yes 12/14/23 08:46 HAND [email or web address] Spontaneous unlabored Yes 12/14/23 08:46 HAND CANDLE [email or web address] respirations Mental status Awake,Calm 12/14/23 08:46 HAND CANDLE [email or web address] nausea No 12/14/23 08:46 HAND CANDLE [email or web address] Vomiting No 12/14/23 08:46 HAND CANDLE [email or web address] Anesthesia Postop Eval I: Fluid Summary Crystalloid volume administer 300 12/14/23 08:46 HAND CANDLE [email or web address] (ml) Colloids volume administered ( ml) Blood Product volume administered (ml) Total IV fluid infused 300 12/14/23 08:46 HAND CANDLE [email or web address] Anesthesia Postop Eval I: Summary Notes Anesthesia Complication No 12/14/23 08:46 HAND CANDLE [email or web address] Anesthesia Complication Comment: Post-operative progress note DENIES PAIN; NO C/ 12/14/23 08:46 HAND CANDLE [email or web address] O Anesthesia: Postop Eval II Evaluation Mental status: Awake Pain Level: 0 nausea: No Vomiting: No
--- NOTE | 2023-12-14 12:37 | PCM.POSTANE2 ---
Anesthesia Postop Eval I Sum Postop Eval Completion status Anesthesia document: Postop Eval 1 completed: Yes Anesthesia Postop Eval I Summary Anesthesia Postop Eval I Summary: Anesthesia Postop Eval I: Assessment Summary Airway patent Yes 12/14/23 08:46 GRANITE [email or web address] Spontaneous unlabored Yes 12/14/23 08:46 GRANITE BLOCK [email or web address] respirations Mental status Awake,Calm 12/14/23 08:46 GRANITE BLOCK [email or web address] nausea No 12/14/23 08:46 GRANITE BLOCK [email or web address] Vomiting No 12/14/23 08:46 GRANITE BLOCK [email or web address] Anesthesia Postop Eval I: Fluid Summary Crystalloid volume administer 300 12/14/23 08:46 GRANITE BLOCK [email or web address] (ml) Colloids volume administered ( ml) Blood Product volume administered (ml) Total IV fluid infused 300 12/14/23 08:46 GRANITE BLOCK [email or web address] Anesthesia Postop Eval I: Summary Notes Anesthesia Complication No 12/14/23 08:46 GRANITE BLOCK [email or web address] Anesthesia Complication Comment: Post-operative progress note DENIES PAIN; NO C/ 12/14/23 08:46 GRANITE BLOCK [email or web address] O Anesthesia: Postop Eval II Evaluation Mental status: Awake Pain Level: 0 nausea: No Vomiting: No
== END 2023-12-14 09:36 | disposition home or self-care (01) ==
LOC: SDC 06:31 → AC 06:34
PROVIDERS: PCP Family Medicine; Referring Provider Surgery Plastic and Reconstructive Surgery; Visit Provider Surgery Plastic and Reconstructive Surgery
PROC: (CPT 11422; principal; 2023-12-14 07:50)
DX: L72.0 Epidermal cyst (principal); J44.9 Chronic obstructive pulmonary disease, unspecified; F17.210 Nicotine dependence, cigarettes, uncomplicated; Z99.81 Dependence on supplemental oxygen; Z90.79 Acquired absence of other genital organ(s); Z85.46 Personal history of malignant neoplasm of prostate
CPT/HCPCS: 11422; 12031; 00300; 88304; 94640; J7120; J2405

== ENCOUNTER → 2024-02-23 | Outpatient (CLI) | payer MEDICARE, OTHER, SELFPAY | END | disposition home or self-care (01) | PROVIDERS: PCP Family Medicine; Referring Provider Nurse Practitioner Acute Care; Visit Provider Nurse Practitioner Acute Care | DX: J44.9 Chronic obstructive pulmonary disease, unspecified (principal) | CPT/HCPCS: 94060; 94726; 94729 ==

== ENCOUNTER → 2024-02-24 | Outpatient (CLI) | payer MEDICARE, OTHER, SELFPAY ==
[2024-02-24 12:30] VITALS: PULSE 106; PULSE 107; PULSE 110; PULSE 77; PULSE 80; O2SAT 89; O2SAT 90; O2SAT 91; O2SAT 92; O2SAT 93
--- NOTE | 2024-02-28 10:21 | PCM.PSN.6M ---
PSN 6 Minute Walk Test 6 Minute Walk Test 6 Minute Walk Test: 6 Minute Walk Test PSN:6-Minute Walk Test Start: 02/24/24 12:48 Freq: Status: Active Protocol: RESP.6MINW Document 02/24/24 12:30 AEH (Rec: 02/24/24 12:53 AEH [id number]) 6 Minute Walk Test Date Performed 02/24/24 Time Performed 12:30 Height 5 ft 6 in Weight: 156 lb Weight in Pounds 156.[address]: Karlene Assistive device used: None Pre-test Oxygen Delivery Method Room Air Pulse Ox (%) 93 Pulse Rate (60-100 beats/min) 80 Dyspnea Micheal Scale (0-10) 0 Exertion Micheal Scale (6-20) 6 1st minute Oxygen Delivery Method Room Air Pulse Ox (%) 91 Pulse Rate (60-100 beats/min) 106 H 2nd minute Oxygen Delivery Method Room Air Pulse Ox (%) 89 Pulse Rate (60-100 beats/min) 110 H 3rd minute Oxygen Delivery Method Room Air Pulse Ox (%) 90 Pulse Rate (60-100 beats/min) 107 H 4th minute Oxygen Delivery Method Room Air Pulse Ox (%) 92 Pulse Rate (60-100 beats/min) 106 H 5th minute Oxygen Delivery Method Room Air Pulse Ox (%) 91 Pulse Rate (60-100 beats/min) 106 H 6th minute Oxygen Delivery Method Room Air Pulse Ox (%) 91 Pulse Rate (60-100 beats/min) 107 H Dyspnea Micheal Scale (0-10) 0 Exertion Imcheal Scale (6-20) 8 Post-test Oxygen Delivery Method Room Air Pulse Ox (%) 93 Pulse Rate (60-100 beats/min) 77 Full Laps Walked 24 Partial Lap, Number of Tiles Walked 0 Total Distance Walked (ft) 1416 Interpretation Interpretation: The patient ambulated 1416 feet over the course of 6 minutes beginning on room air without assistive devices. Pretesting oxygen saturation was noted to be 93% on room air. With ambulation, the luis fernando oxygen saturation was 89%. This represents a significant exertional oxygen desaturation, consistent with a pulmonary limitation to exercise tolerance. Recommendations Recommendations: There is no indication for the use of supplemental oxygen at this time. However, close interval follow-up is recommended, given the degree of oxygen desaturation noted during the study.
== END | disposition home or self-care (01) ==
PROVIDERS: PCP Family Medicine; Referring Provider Nurse Practitioner Acute Care; Visit Provider Nurse Practitioner Acute Care
DX: J44.9 Chronic obstructive pulmonary disease, unspecified (principal)
CPT/HCPCS: 94618

== ENCOUNTER → 2024-02-27 | Outpatient (CLI) | payer MEDICARE, OTHER, SELFPAY ==
--- NOTE | 2024-02-27 07:49 | CT_ITS ---
HISTORY: lung nodule in high risk patient, 3 month follow-up benign biopsy, former smoker, COPD. TECHNIQUE: Helically acquired images were obtained of the chest without contrast. A radiation dose optimization technique was used for this scan. 829 images. COMPARISON: 11/01/2023, 07/12/2022, 07/11/2021. FINDINGS: LARGE AIRWAYS: Patent. LUNGS: Advanced emphysema with mild biapical and right lower lobe superior segment scarring. Stable 2 mm left upper lobe nodule. Irregular 5 x 14 x 14 mm left upper lobe nodule, previously 7 x 19 x 22 mm. PLEURA: No pneumothorax or significant pleural effusion. HEART/PERICARDIUM: Heart within normal limits in size with coronary artery calcification. No pericardial effusion. VESSELS: Thoracic aorta nondilated. Mild atherosclerosis. MEDIASTINUM/GRAHAM: No pathologically enlarged adenopathy. UPPER ABDOMEN: Small hepatic cysts. Mild right hydronephrosis with a punctate calculus in the upper pole. BONES: Chronic fusion of the cervical spine and anterolisthesis of C7-T1. Degenerative change and lumbar spinal fusion hardware noted. CT/Chest without Contrast IMPRESSION: 1.4 cm irregular left upper lobe pulmonary nodule, decreased in size from prior. Right nephrolithiasis with interval development of mild right hydronephrosis, uncertain etiology. Consider ultrasound or CT follow-up. Lung-RADS 3S: Recommend 6 month follow-up low dose CT. Electronically Signed: Yajaira Rodríguez MD at 9:38 EST ,
== END | disposition home or self-care (01) ==
PROVIDERS: PCP Family Medicine; Referring Provider Nurse Practitioner Acute Care; Visit Provider Nurse Practitioner Acute Care
DX: R91.1 Solitary pulmonary nodule (principal)
CPT/HCPCS: 71250

== ENCOUNTER → 2024-03-22 | Outpatient (CLI) | payer MEDICARE, OTHER, SELFPAY ==
[2024-03-22 17:55] LABS: PSA,Total - Annual Screen 0.18 ng/mL (0.00-4.00)
== END | disposition home or self-care (01) ==
LOC: BFHLAB 16:23
PROVIDERS: PCP Family Medicine; Visit Provider Family Medicine
DX: Z12.5 Encounter for screening for malignant neoplasm of prostate (principal)
CPT/HCPCS: 36415; 84153; G0103

== ENCOUNTER → 2024-08-13 | Outpatient (CLI) | payer MEDICARE, OTHER, SELFPAY ==
--- NOTE | 2024-08-13 07:02 | CT_ITS ---
PROCEDURE: CHEST WITHOUT CONTRAST 08/13/2024 REASON FOR EXAM: NODULE IN SMOKER Annual follow-up. TECHNIQUE: Chest CT without contrast. Coronal and Sagittal reconstruction series were provided. One or more dose reduction techniques were used (e.g., Automated exposure control, adjustment of the mA and/or kV according to patient size, use of iterative reconstruction technique RADIATION DOSE SUMMARY: CTDlvol: 8.93 mGy DLP: 316.72 mGycm COMPARISON: Prior study dated February 27, 2024. FINDINGS: Hardware: None Lymph nodes: Heart and Vasculature: Coronary artery calcifications are noted. Coronary Artery Calcifications: Present Lungs and Airways: Advanced emphysematous changes are present. Stable scarring at the lung apices. Stable 2 mm left upper lobe nodule. Stable 5 mm x 14 mm x 14 mm left upper lobe nodule. Pleura: Unremarkable Upper Abdomen: Small hepatic cysts. Bones: Degenerative changes of the thoracic spine. Stable fusion at the C7-T1 level. CT/Chest without Contrast IMPRESSION: Coronary artery calcification (CAC) is is present stable examination. Reading Location: [id number]
== END | disposition home or self-care (01) ==
LOC: CT 07:02
PROVIDERS: PCP Family Medicine; Referring Provider Nurse Practitioner Acute Care; Visit Provider Nurse Practitioner Acute Care
DX: R91.1 Solitary pulmonary nodule (principal)
CPT/HCPCS: 71250

== ENCOUNTER 2024-08-29 05:52 | Day surgery (SDC) | payer MEDICARE, OTHER, SELFPAY ==
--- NOTE | 2024-08-20 09:19 | PAT.ANESEVAL ---
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 When Was Last Pacemaker Check QUESTION #4 FULL TEXT: You/Your Family Experience fever (hyperthermia) with Anesthesia Last Oral Intake Last Oral intake: Last Oral Intake NPO since Meds taken in AM with sips of water? Meds patient instructed to take am of surgery PONV PONV - loss prevention detective: PONV - loss prevention detective Female No 08/20/24 09:01 HX of Motion Sickness No 08/20/24 09:01 HX of N/V After Surgery No 08/20/24 09:01 Non-Smoker No 08/20/24 09:01 Duration of Surgery greater No 08/20/24 09:01 than 60 minutes Number of Risk Factors PONV Score Height & Weight Height & Weight: Anesthesia: Height & Weight Height 5 ft 6 in 03/22/24 09:04 Respiratory Assessment Respiratory Assessment - loss prevention detective: Respiratory Tract Infection Hx - loss prevention detective Hx Respiratory Tract Infection No 08/20/24 09:01 STOP Sleep Apnea STOP Sleep Apnea - loss prevention detective: STOP Sleep Apnea - loss prevention detective Hx Hypertension No 08/20/24 09:01 Hx Sleep Apnea No 08/20/24 09:01 CPAP BIPAP Do you snore loudly (louder No 08/20/24 09:01 than talking or can be heard Do you often feel tired/ No 08/20/24 09:01 fatigued/ sleepy during daytime? Has anyone observed you stop No 08/20/24 09:01 breathing during sleep? STOP Results Negative 08/20/24 09:01 QUESTION #5 FULL TEXT : Do you snore loudly (louder than talking or can be heard through closed doors)? 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 Specify any problems Hx of Preganancy in last 3 N/A 08/20/24 09:01 Months Nurse Filling Out Transfusion DSCHRIBER 08/20/24 09:01 & Questions: Date: 08/20/24 08/20/24 09:01 Time: 09:02 08/20/24 09:01 Patient unable to answer at this time (ie. confused, unrespo /Reproduction History /Reproductive History - loss prevention detective: /Reproductive Hx- loss prevention detective Hx Now No 08/20/24 09:01 Gestational Age (in weeks): EDC: Hx Hx Para Hx Section SAB No 08/20/24 09:01 [facility] Medical History (Updated 08/20/24 @ 09:09 by Tiffanie Rodriguez) Injury of head and neck Chewing tobacco dependence Macular degeneration On home oxygen therapy Former smoker Emphysema, unspecified History of echocardiogram History of stress test Cancer Wears dentures Wears glasses Alcohol use Arthritis Prostate disease Back pain Former smoker History of irregular heartbeat Prostate cancer COPD (chronic obstructive pulmonary disease) Home Medications ?Medication ?Instructions ?Recorded ?Last Taken ?Type ascorbic acid (vitamin C) 1,000 mg 2,000 mg PO DAILY 03/30/21 Unknown History tablet,extended release cholecalciferol (vitamin D3) 25 25 mcg PO BID 03/30/21 Unknown History mcg (1,000 unit) capsule vitamins A,C,D-pkfv-ndunsk 4,296 1 cap PO BID 03/30/21 Unknown History mcg-226 mg-90 mg capsule (PreserVision AREDS) elderberry fruit 50 mg/5 mL oral 100 mg PO BID 05/03/22 Unknown History syrup albuterol sulfate 90 mcg/actuation 1 - 2 puff inhalation Q4H PRN PRN 03/02/23 Unknown Rx aerosol inhaler (Ventolin HFA) Wheezing #8.5 grams Handicap Placcard #1 ea 04/26/23 Unknown Rx tiotropium 2.5 mcg-olodaterol 2.5 2 puff inhalation DAILY #4 grams 07/09/24 Unknown Rx mcg/actuation mist for inhalation (Stiolto Respimat) Allergy/AdvReac Type Severity Reaction Status Date / Time No Known Allergies Allergy Verified 08/20/24 08:58 Family History Father Cancer Prostate Surgical History (Updated 08/20/24 @ 09:09 by Tiffanie Rodriguez) History of excision of lesion History of cystoscopy History of lung biopsy H/O excision of mass History of colonoscopy History of surgery on lower extremity History of neck surgery History of back surgery History of prostatectomy History of hip replacement Social History Smoking Status: Current some day smoker tobacco type: smokeless tobacco Tobacco: How many years used: 50 Smokeless tobacco user: chewing tobacco how long ago did patient quit smokin, 2ppd second hand exposure: Yes alcohol intake: current alcohol intake frequency: a few times a week Alcohol type: beer and hard liquor substance use type: does not use additional social history: denies vaping, denies marijuana use, denies edibles, Uses chew denies use of aspirin and ibuprofen use. Audit: Pertinent Findings Pertinent Findings EKG Perinent findings: 10/30/2020. Sinus rhythm with marked sinus arrhythmia. 63 bpm otherwise normal EKG. Additional pertinent findings: Chest x-ray 11/25/2023. Stable minimal left apical pneumothorax. Patient asymptomatic. Recommendation Anesthesia Recommendation Anesthesia recommendation: OPTIMIZED for anesthesia
[2024-08-29] VITALS (9 sets, daily range): BP systolic 97–116; BP diastolic 63–71; PULSE 57–68; RESP 14–16; TEMP 36.4–36.6; O2SAT 93–98; BMI 23.1
[2024-08-29] MEDS: Lactated Ringers 1,000 ML 15 ML IV (06:15)
--- NOTE | 2024-08-29 06:50 | PCM.PRE.AN2 ---
ASA Classification* ASA Classification ASA Classification: 3 Assessment & Plan Anesthesia* Anesthesia Assessment Anesthesia Assessment: Discussed sedation and/or anesthesia options, risks, benefits, and alternatives with patient/parents/legal guardian/POA. Questions invited. The patient/parents/legal guardian/POA seems to understand and agrees to proceed with anesthesia plan. Reviewed the physical assessment, medical history, allergy history and patient home medications list prior to surgery/procedure/anesthetic and documented any changes. Performed airway and anesthesia risk assessments. Anesthesia Type Anesthesia Type: General (General anesthesia discussed as a backup plan to sedation.) and MAC History Source History Obtained from:: Patient and Chart Anesthesia Focused Assessment* Temperature: 97.9 F Pulse Rate: 68 Blood Pressure: 106/65 Respiratory Rate: 16 Pulse Ox: 95 Oxygen Delivery Method: Room Air Airway Assessment Mouth opens: >3 cm Mallampati Score: I Teeth Condition: Dentures (Patient has full upper dentures which are out. Lower partials are out as well. Rest are tight.) Neck Range of motion (ROM): Limited ROM (Decreased extension secondary to previous cervical fusion.) Focused Labs Anesthesia Preop lab: CBC WBC 11.7 K/mm3 (4.4-11.0) H 07/04/23 10:07/04/23 RBC 4.43 M/mm3 (4.6-6.2) L 07/04/23 10:07/04/23 Hgb 14.3 g/dL (13.0-16.5) 07/04/23 10:07/04/23 Hct 43.2 % (40-54) 07/04/23 10:07/04/23 Plt Count 312 K/mm3 (150-450) 11/18/23 15:31 11/18/23 CHEMISTRY Potassium 4.1 mmol/L (3.5-5.1) 07/04/23 10:07/04/23 Sodium 138 mmol/L (136-145) 07/04/23 10:07/04/23 BUN 29 mg/dL (7-18) H 07/04/23 10:07/04/23 Creatinine 0.90 mg/dL (0.70-1.30) 07/04/23 10:07/04/23 Glucose 129 mg/dL (74-106) H 07/04/23 10:06 07/04/23 TSH 3.12 uIU/mL (0.358-3.74) 12/29/22 13:46 12/29/22 COAG PT 14.2 SECONDS (11.7-14.9) 11/18/23 15:31 11/18/23 Pre-Assessment Diagnosis/Proposed Procedure Planned Operative Procedure(s): EXCISION LEFT WRIST GANGLION CYST Anesthesia History 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 When Was Last Pacemaker Check QUESTION #4 FULL TEXT: You/Your Family Experience fever (hyperthermia) with Anesthesia Last Oral Intake Last Oral intake: Last Oral Intake NPO since 00:00 08/29/24 06:26 Meds taken in AM with sips of Yes 08/29/24 06:26 water? Meds patient instructed to take am of surgery PONV PONV - bosom presser: PONV - bosom presser Female No 08/20/24 09:01 HX of Motion Sickness No 08/20/24 09:01 HX of N/V After Surgery No 08/20/24 09:01 Non-Smoker No 08/20/24 09:01 Duration of Surgery greater No 08/20/24 09:01 than 60 minutes Number of Risk Factors PONV Score Height & Weight Height & Weight: Anesthesia: Height & Weight Height 5 ft 7 in 08/29/24 06:26 Weight: 67.1 kg 08/29/24 06:26 Body Mass Index (BMI) 23.1 08/29/24 06:26 Respiratory Assessment Respiratory Assessment - bosom presser: Respiratory Tract Infection Hx - bosom presser Hx Respiratory Tract Infection No 08/20/24 09:01 STOP Sleep Apnea STOP Sleep Apnea - bosom presser: STOP Sleep Apnea - bosom presser Hx Hypertension No 08/20/24 09:01 Hx Sleep Apnea No 08/20/24 09:01 CPAP BIPAP Do you snore loudly (louder No 08/20/24 09:01 than talking or can be heard Do you often feel tired/ No 08/20/24 09:01 fatigued/ sleepy during daytime? Has anyone observed you stop No 08/20/24 09:01 breathing during sleep? STOP Results Negative 08/20/24 09:01 QUESTION #5 FULL TEXT : Do you snore loudly (louder than talking or can be heard through closed doors)? 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 Specify any problems Hx of Preganancy in last 3 N/A 08/20/24 09:01 Months Nurse Filling Out Transfusion DSCHRIBER 08/20/24 09:01 & Questions: Date: 08/20/24 08/20/24 09:01 Time: 09:02 08/20/24 09:01 Patient unable to answer at this time (ie. confused, unrespo /Reproduction History /Reproductive History - bosom presser: /Reproductive Hx- bosom presser Hx Now No 08/20/24 09:01 Gestational Age (in weeks): EDC: Hx Hx Para Hx Section SAB No 08/20/24 09:01 Active Medications Active Medications: Current Medications Generic Name Dose Route Start Last Admin Trade Name Freq PRN Reason Stop Dose Admin Cefazolin Sodium 2 gm/ Sodium 110 mls @ 150 mls/hr 08/29/24 07:30 Chloride IV 08/29/24 08:13 INTRAOP ONE Lactated Ringer's 1,000 mls @ 15 mls/hr 08/29/24 06:15 08/29/24 06:15 IV 15 mls/hr .Q48H LAURA Administration PFSH Medical History Injury of head and neck Chewing tobacco dependence Macular degeneration On home oxygen therapy Former smoker Emphysema, unspecified History of echocardiogram History of stress test Cancer Wears dentures Wears glasses Alcohol use Arthritis Prostate disease Back pain Former smoker History of irregular heartbeat Prostate cancer COPD (chronic obstructive pulmonary disease) Home Medications ?Medication ?Instructions ?Recorded ?Last Taken ?Type ascorbic acid (vitamin C) 1,000 mg 2,000 mg PO DAILY 03/30/21 Unknown History tablet,extended release cholecalciferol (vitamin D3) 25 25 mcg PO BID 03/30/21 Unknown History mcg (1,000 unit) capsule vitamins A,C,V-tylm-hzpnao 4,296 1 cap PO BID 03/30/21 Unknown History mcg-226 mg-90 mg capsule (PreserVision AREDS) elderberry fruit 50 mg/5 mL oral 100 mg PO BID 05/03/22 Unknown History syrup albuterol sulfate 90 mcg/actuation 1 - 2 puff inhalation Q4H PRN PRN 03/02/23 Unknown Rx aerosol inhaler (Ventolin HFA) Wheezing #8.5 grams Handicap Placcard #1 ea 04/26/23 Unknown Rx tiotropium 2.5 mcg-olodaterol 2.5 2 puff inhalation DAILY #4 grams 07/09/24 08/29/24 Rx mcg/actuation mist for inhalation (Stiolto Respimat) Allergy/AdvReac Type Severity Reaction Status Date / Time No Known Allergies Allergy Verified 08/29/24 06:24 Family History Father Cancer Prostate Surgical History History of excision of lesion History of cystoscopy History of lung biopsy H/O excision of mass History of colonoscopy History of surgery on lower extremity History of neck surgery History of back surgery History of prostatectomy History of hip replacement Social History Smoking Status: Current some day smoker tobacco type: smokeless tobacco Tobacco: How many years used: 50 Smokeless tobacco user: chewing tobacco how long ago did patient quit smokin, 2ppd second hand exposure: Yes alcohol intake: current alcohol intake frequency: a few times a week Alcohol type: beer and hard liquor substance use type: does not use additional social history: denies vaping, denies marijuana use, denies edibles, Uses chew denies use of aspirin and ibuprofen use. Review of Systems (Anesthesia) ROS Narrative System reviewed and no additional complaints, except as documented.
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
--- NOTE | 2024-08-29 07:30 | CYST_PTH ---
PATIENT: BRINA NATHAN Jr. LOC: [facility] [place] U#:[id number] AGE/SX: 74/M ROOM: RE08/29/[address]: Dr. Brina Marina MD : 1950 BED: DIS: 08/29/2024 SPEC #: [id number] RECD: 08/29/24 11:11 STATUS: ROB REManju #: [id number] GLORIA: 08/29/24 07:[address]: Brina Marina DEPT: SURGICAL PATHOLOGY RECD BY: Bello Soares ENTERED: 08/29/24 11:31 SP TYPE: Cyst OTHR DR: Dr. Joseph Bourne, DO Tissues: A - CYST Procedures: Surgery Specimen Level III HEADER OPERATION: Excision left wrist ganglion cyst PRE-OP DIAGNOSIS: Ganglion cyst of dorsum of left wrist TISSUE SUBMITTED: A- Left wrist ganglion cyst MICROSCOPIC DIAGNOSIS A. Left wrist, dorsum, ganglion cyst, excision: Fibrous tissue without cyst lining epithelium, consistent with clinical impression of ganglion cyst. MICROSCOPIC DESCRIPTION Slides are reviewed. GROSS DESCRIPTION A. Received in formalin in a container labeled with the patient's name, date of , and left wrist ganglion cyst is a 0.5 x 0.4 x 0.2 cm white-solis and wispy fragment of soft tissue. No distinct skin or cystic structure is identified. The specimen is submitted in toto in A1. [facility] 08-29-2024 CPT:67190
[2024-08-29] MEDS: Cefazolin 2 GM in 0.9% Normal Saline (100mL Bag) 100 ML IV (07:40)
[2024-08-29] MEDS: Bupiv/Epi 0.25% 30 ML Vial (08:03)
--- NOTE | 2024-08-29 08:48 | OP.PCM_ITS ---
Operative Report (Standard) Operative Information Date of Procedure: 08/29/24 Pre-Operative Diagnosis: Left wrist ganglion cyst Post-Operative Diagnosis: Same Surgery/Procedure Performed: 1) Excision left radial wrist ganglion cyst (over radial styloid) CPT 61073 ingot supervisor: Yes Duct Layer Helper: Leroy Senior Tasks completed by first aid instructor: Retracting Type of Anesthesia: Local MAC (2 cc of quarter percent Marcaine with 1 200,000 epinephrine) RN Documented Start/Stop Times: Operation Date: 08/29/24 07:30 Case Time Into Pre-Op 08/29/24 06:04 Out of Pre-Op 08/29/24 07:36 Anesthesia Start 08/29/24 07:40 Into Room 08/29/24 07:40 Procedure Start 08/29/24 07:58 Procedure End 08/29/24 08:15 Anesthesia End 08/29/24 08:19 Out of Room 08/29/24 08:19 Into Recovery 08/29/24 08:20 Procedure Start Time: 07:58 Procedure Stop Time: 08:15 Select all DRAINS/GRAFTS/IMPLANTS that apply: None Estimated Blood Loss: Minimal Specimen collected: Yes Description of specimen(s) removed: Cyst wall Description of surgery: Indication: Patient is a delightful 74-year-old male with history of left radial sided wrist ganglion cyst that is tender to palpation that he would like removed. Understands risk benefits and alternatives to the procedure. Procedure details: Patient was marked in preoperative holding and the mass/cyst was correctly identified and confirmed with the patient and his . He was taken back to the operating room he was administered sedation and prepped and draped in sterile fashion. A timeout was performed. Esmarch was used and the left arm tourniquet was insufflated to 250 mmHg. 2 cc of 0.25% Marcaine with 1-200,000 epinephrine was injected around the mass. He was given time to take effect. 15 blade scalpel was used to make a longitudinal incision directly over the cyst and dissection was carefully performed with tenotomy scissors with care taken to protect the superficial branches of the radial nerve. Dissection was taken around the mass/cyst circumferentially and the cyst wall was excised and sent to pathology. The cyst measured approximately 0.5 x 0.5 cm. The base of the cyst and the stalk of the cyst was cauterized with bipolar electrocautery. The wound was irrigated with copious dejuan normal saline. Hemostasis was obtained with the bipolar once the tourniquet was let down. 4-0 Monocryl deep dermal and 4-0 Monocryl running subcuticular sutures were used for closure and Prineo tape. Yayo and loose Coban were applied. Patient tolerated the procedure well and wa s awakened and taken to the PACU in stable condition. Surgical Findings: Ganglion cyst radial side of the left wrist over the radial styloid Complications Complications: No Admit VTE Documentation VTE Mechan Device Prophylaxis: SCD's
--- NOTE | 2024-08-29 09:23 | PCM.POST.ANE ---
Anesthesia: Postop Eval I Current Vital Signs Temperature: 97.9 F Pulse Rate: 61 Blood Pressure: 113/71 Respiratory Rate: 16 Pulse Ox: 98 Oxygen Delivery Method: Room Air Assessment Airway patent: Yes Spontaneous unlabored respirations: Yes Mental status: Awake and Calm nausea: No Vomiting: No Anesthesia Complication: No Fluid Hydration Crystalloid volume administer (ml): 600 Total IV fluid infused: 600 Progress Note Anesthesia document: Postop Eval 1 completed: Yes
--- NOTE | 2024-08-29 10:00 | POSTOPAN2_ITS ---
Anesthesia Postop Eval I Sum Postop Eval Completion status Anesthesia document: Postop Eval 1 completed: Yes Anesthesia Postop Eval I Summary Anesthesia Postop Eval I Summary: Anesthesia Postop Eval I: Assessment Summary Airway patent Yes 08/29/24 09:23 SUCTION DREDGE DUMPING [email or web address] Spontaneous unlabored Yes 08/29/24 09:23 SUCTION DREDGE DUMPING [email or web address] respirations Mental status Awake,Calm 08/29/24 09:23 SUCTION DREDGE DUMPING [email or web address] nausea No 08/29/24 09:23 SUCTION DREDGE DUMPING [email or web address] Vomiting No 08/29/24 09:23 SUCTION DREDGE DUMPING [email or web address] Anesthesia Postop Eval I: Fluid Summary Crystalloid volume administer 600 08/29/24 09:23 SUCTION DREDGE DUMPING [email or web address] (ml) Colloids volume administered ( ml) Blood Product volume administered (ml) Total IV fluid infused 600 08/29/24 09:23 SUCTION DREDGE DUMPING [email or web address] Anesthesia Postop Eval I: Summary Notes Anesthesia Complication No 08/29/24 09:23 SUCTION DREDGE DUMPING [email or web address] Anesthesia Complication Comment: Post-operative progress note Anesthesia: Postop Eval II Evaluation Mental status: Awake and Calm Pain Level: 0 nausea: No Vomiting: No Complications Anesthesia Complication: No
--- NOTE | 2024-08-29 10:00 | PCM.POSTANE2 ---
Anesthesia Postop Eval I Sum Postop Eval Completion status Anesthesia document: Postop Eval 1 completed: Yes Anesthesia Postop Eval I Summary Anesthesia Postop Eval I Summary: Anesthesia Postop Eval I: Assessment Summary Airway patent Yes 08/29/24 09:23 B2B [email or web address] [email or web address] Spontaneous unlabored Yes 08/29/24 09:23 B2B [email or web address] [email or web address] respirations Mental status Awake,Calm 08/29/24 09:23 B2B [email or web address] [email or web address] nausea No 08/29/24 09:23 B2B [email or web address] [email or web address] Vomiting No 08/29/24 09:23 B2B [email or web address] [email or web address] Anesthesia Postop Eval I: Fluid Summary Crystalloid volume administer 600 08/29/24 09:23 B2B [email or web address] [email or web address] (ml) Colloids volume administered ( ml) Blood Product volume administered (ml) Total IV fluid infused 600 08/29/24 09:23 B2B [email or web address] [email or web address] Anesthesia Postop Eval I: Summary Notes Anesthesia Complication No 08/29/24 09:23 B2B [email or web address] [email or web address] Anesthesia Complication Comment: Post-operative progress note Anesthesia: Postop Eval II Evaluation Mental status: Awake and Calm Pain Level: 0 nausea: No Vomiting: No Complications Anesthesia Complication: No
== END 2024-08-29 09:25 | disposition home or self-care (01) ==
LOC: SDC 05:54 → AC 05:54
PROVIDERS: PCP Family Medicine; Referring Provider Surgery Plastic and Reconstructive Surgery; Visit Provider Surgery Plastic and Reconstructive Surgery
PROC: (CPT 25111; principal; 2024-08-29 07:15)
DX: M67.432 Ganglion, left wrist (principal); J44.9 Chronic obstructive pulmonary disease, unspecified; M65.341 Trigger finger, right ring finger; F17.220 Nicotine dependence, chewing tobacco, uncomplicated; Z79.51 Long term (current) use of inhaled steroids
CPT/HCPCS: 25111; 01810; 88304; J2405

== ENCOUNTER → 2024-09-25 | Outpatient (CLI) | payer MEDICARE, OTHER, SELFPAY ==
[2024-09-25 13:31] LABS: PSA,Total- Diagnostic 0.21 ng/mL (0.00-4.00)
== END | disposition home or self-care (01) ==
LOC: LAB 11:09
PROVIDERS: PCP Family Medicine; Referring Provider Urology; Visit Provider Urology
DX: C61 Malignant neoplasm of prostate (principal)
CPT/HCPCS: 36415; 84153

== ENCOUNTER → 2024-10-08 | Outpatient (CLI) | payer MEDICARE, OTHER, SELFPAY | END | disposition home or self-care (01) | PROVIDERS: PCP Family Medicine; Referring Provider Urology; Visit Provider Urology | DX: N64.4 Mastodynia (principal); D49.3 Neoplasm of unspecified behavior of breast | CPT/HCPCS: 76642; 77062; 77066; G0279 ==

== ENCOUNTER → 2024-10-12 | Outpatient (CLI) | payer MEDICARE, OTHER, SELFPAY ==
--- NOTE | 2024-10-12 14:00 | BRBX_PTH ---
PATIENT: BRINA NATHAN Jr. LOC: [facility] U#:[id number] AGE/SX: 74/M ROOM: RE10/12/[address]: Dr. Ross Johnston MD : 1950 BED: DIS: 10/12/2024 SPEC #: [id number] RECD: 10/12/24 14:55 STATUS: ROB REQ #: [id number] GLORIA: 10/12/24 14:[address]: Ross Johnston DEPT: SURGICAL PATHOLOGY RECD BY: Bello Soares ENTERED: 10/12/24 16:18 SP TYPE: BREAST BX OTHR DR: Dr. Joseph Bourne, DO Tissues: A - Right breast, NOS Procedures: Surgery Specimen Level IV HEADER OPERATION: Right breast biopsy PRE-OP DIAGNOSIS: Right breast TISSUE SUBMITTED: A- Right breast biopsy Ischemic Time: <1 minute Fixation Time: 53 hours MICROSCOPIC DIAGNOSIS A. Breast, right, core biopsy: - Benign breast tissue consistent with gynecomastia. MICROSCOPIC DESCRIPTION Slides are reviewed. GROSS DESCRIPTION Received in formalin labeled with the patient's name and date of . Designated as R breast tissue are white-yellow tissue cores, 1.0 cm to 2.1 cm in length by 0.1 cm in diameter. Entirely submitted in 1 cassette. Cold ischemic time: <1 minuteFormalin fixation time: 53 hours CA 10/12/2024 CPT:75599
== END | disposition home or self-care (01) ==
PROVIDERS: PCP Family Medicine; Referring Provider Surgery; Visit Provider Surgery
DX: N62 Hypertrophy of breast (principal)
CPT/HCPCS: 88305

== ENCOUNTER → 2024-12-31 | Outpatient (CLI) | payer MEDICARE, OTHER, SELFPAY ==
--- OUTSIDE RECORDS SUMMARY | 2024-11-14 | XMS RPT_ITS ---
Author Name Auto Generated Organization OHIP Care Team Providers Care Medical Receptionist Assistant Name Role Phone TOBY MAZA Admitting Unavailable TOBY MAZA Attending Unavailable PRETTY LAKE Referring Unavailable RADHA READ Admitting Unavailable RADHA READ Attending Unavailable ESTEBAN COVINGTON A Primary Care Unavailable PICCHUN EDEN Attending Unavailable ADRIA, ESTEBAN A Primary Care Unavailable RADHA READ Attending Unavailable ADRIA, ESTEBAN A Primary Care Unavailable ADRIAESTEBAN A Consulting Unavailable NOELLE BROWNE DO Attending Unavailable NOELLE BROWNE DO Primary Care Unavailable NOELLE BROWNE DO Admitting Unavailable ADRIA, ESTEBAN A Referring Unavailable PROVIDER, UNKNOWN Consulting Unavailable CHUN CADET Referring Unavailable ADRIA, ESTEBAN A Primary Care Unavailable RADHA READ Referring Unavailable ADRIA, ESTEBAN A Primary Care Unavailable RADHA READ Referring Unavailable ADRIA, ESTEBAN A Primary Care Unavailable PICCHUN EDEN Referring Unavailable ADRIA, ESTEBAN A Primary Care Unavailable PROBLEMS DATE TYPE CONDITION / CODE ATTENDING STATUS [facility] 05/28/2024 Active Renal calculi / N20.0(ICD-10) RADHA READ [facility] 04/18/2013 Active Malignant neopla sm of prostate (HCC) / C61(ICD-10) CHUN CADET [facility] 06/18/2024 Active Right ureteral s tone / N20.1(ICD-10) RADHA READ [facility] 06/18/2024 Active Ureteral stone / N20.1(ICD-10) [facility] 05/28/2024 Active ureteral stone / UNK(Unknown) TOBY MAZA [facility] PROCEDURES No Procedure Records Found RESULTS GIUSEPPE Observed: 08/03/2024 12:00 AM Status: COMPLETED Source: [facility] Telephone ([id number]) BRINA MACHADO JR. ([id number]) 1950 M Date Time Provider Department 08/03/24 CHUN CADET [id number] During your visit today, we recorded the following information about you: Chun Cadet APRN.CNP 08/03/2024 3:50 PM Signed ----- Message from Radha Read MD sent at 08/03/2024 3:46 PM EDT ----- 3 month repeat PSA with follow up with mn ----- Message ----- From: Chun Cadet APRN.CNP Sent: 08/03/2024 3:38 PM EDT To: Rahda Read MD Hx of prostatectomy 2016. No recent psa. Previously undetectable. Last 8 years ago. Now 0.14. What would you like to do for follow-up? Chun Fowler APRN.CNP 08/03/2024 3:51 PM Signed PSA 0.14. Recommend 3 month follow-up with Dr. Read with repeat PSA. MONTSE Lawrence Jodi, MA 11/07/2024 9:57 AM Signed Can you please put the PSA order in the chart? Thank you. Shraddha Kim MA November 07, 2024 9:57 AM Chun Cadet APRN.CNP 11/07/2024 5:54 PM Signed PSA order in chart. MONTSE Lawrence Tiffany M, APRN.CNP 11/07/2024 5:54 PM Signed Addended by: CHUN CADET on: 11/07/2024 05:54 PM Modules accepted: Orders Allergies As of Date: 08/03/2024 (No Known Allergies) Date Reviewed: 08/02/2024 Reviewed by: Jennifer Shin MA - Fully Assessed Primary Visit Diagnosis:Malignant neoplasm of prostate (HCC) [C61] Order(s):PROSTATE-SPECIFIC ANTIGEN DIAGNOSTIC [SQPSA] Order #: [id number] FUTURE Prescriptions as of 11/07/2024 - Ascorbic Acid 1,000 mg tablet Take 2,000 mg by mouth two times a day. - Cholecalciferol, Vitamin D3, 250 mcg (10,000 unit) cap Take 5,000 Units by mouth two times a day. - vit A/vit C/vit E/zinc/copper (PRESERVISION AREDS ORAL) Take 1 tablet by mouth two times a day. - elderberry fruit (ELDERBERRY ORAL) Take 2 Tablespoonsful by mouth once daily. - OXYGEN, HOME THERAPY, Inhale 2 L/min as instructed as needed for wheezing/shortness of breath (as need if sats goes below 90% - 06/13/24 patient states he hasn't needed it in months). - ipratropium-albuterol (DUONEB) 0.5 mg-3 mg(2.5 mg base)/3 mL nebu Inhale 3 mL as instructed every 4 hours as needed for wheezing/shortness of breath. - tiotropium Br/olodaterol HCl (STIOLTO RESPIMAT INHALATION) Inhale 2 Puffs as instructed once daily. Problem List As Of Date 08/03/2024 Noted Resolved BPH W URINARY OBS/LUTS [N40.1, N13.8] 01/17/2007 BLADDER NECK OBSTRUCTION [N32.0] 01/17/2007 Family history of prostate cancer [Z80.42] 01/22/2013 Scrotal mass [N50.89] 01/22/2013 Spermatocele [N43.40] 02/21/2013 Malignant neoplasm of prostate [C61] 04/18/2013 Right ureteral stone [N20.1] 05/28/2024 Leukocytosis [D72.829] 05/28/2024 Renal calculi [N20.0] 05/28/2024 Prostate cancer (HCC) [C61] 05/28/2024 Complicated UTI (urinary tract infection) [N39.*05/30/2024 Preop testing [Z01.818] 06/15/2024 Encounter Status:Closed by CHUN CADET on 08/03/24 XR ABDOMEN 1V SUPINE Observed: 11:52 AM Status: F Source: [facility] * * *Final Report* * * DATE OF EXAM: Aug 02 2024 11:52AM WRX [id number] - XR ABDOMEN 1V SUPINE / PROCEDURE REASON: Right ureteral stone * * * * Physician Interpretation * * * * HISTORY: Right ureteral stone TECHNIQUE: XR ABDOMEN 1V SUPINE FINDINGS/ IMPRESSION: Normal bowel gas pattern. No concerning intra-abdominal calcification. Lumbar spine hardware status post RIGHT total hip arthroplasty. Back Winder: PSCB Transcribe Date/Time: Aug 04 2024 2:33P Dictated by : SHIVAM BELL MD This examination was interpreted and the report reviewed and electronically signed by: SHIVAM BELL MD on Aug 04 2024 2:35PM EST [id number] PROGRESS Observed: 08/02/2024 11:30 AM Status: COMPLETED Source: [facility] HNO ID: [id number] Author: OCTAVIO CRUMP RT(R) Service: Radiology Author Type: Technologist Type: Progress Notes Filed: 08/02/2024 11:53 Note Text: Radiology Service Progress Note PATIENT NAME: Brina Machado Jr. DATE OF SERVICE: August 02, 2024 TIME: 11:47 AM PATIENT IDENTITY VERIFICATION COMPLETED USING TWO (2) IDENTIFIERS: Name and Date of confirmed by patient verbally. FALL SCREENING: Has the patient had 2 falls in the last year or 1 fall with injury or currently using an Ambulatory Assistive Device (Walker, Cane, Wheelchair, Crutches, etc.)? No PATIENT GENDER DATA: Assigned male at PATIENT RELEVANT IMPLANT DATA REVIEWED: Not Applicable PATIENT PRESENTS WITH AN IMPLANTABLE OR ATTACHED DEPOSITION OPERATOR: No RADIOLOGY DEPARTMENT: General X-ray: Exam(s) Completed: Abdomen X-Ray: Abdomen PERIPHERAL IV DATA: Not applicable SIGNED BY: RT Blake(R) August 02, 2024 11:47 AM PSA SERPL-MCNC Collected: 11:27 AM Status: F Source: [facility] Order Comment: Specimen Type : BLOOD SPECIMEN Ordering Facility: [facility] Address: [address] [place] [address] TYPE CODE TESTS RESULT OUT OF RANGE REFERENCE UNITS LAB 2857-1(LOINC) PSA SerPl-mCnc 0.14 <2.60 ng/mL Result Comment: Total PSA te st methodology used is the Electrochemiluminescence Immunoassay by Nader ADINCON. Total PSA values by differing methodologies cannot be interchanged. Performed By: #### 2857-1 ## ## [facility] CLIA [id number] [address] [place] [address] [place] PROGRESS Observed: 08/02/2024 9:20 AM Status: COMPLETED Source: [facility] HNO ID: [id number] Author: CHUN CADET APRN.MARINE SERVICES TECHNICIAN Service: ? Author Type: Nurse Practitioner Type: Progress Notes Filed: 08/02/2024 09:48 Note Text: [facility] ESTABLISHED PATIENT FOLLOW-UP NOTE PATIENT: Brina Ta Guillaume Morse Jr. (74 year old) PCP: Esteban Covington, DO Assessment AND Plan Right ureteral stone - Recent renal ultrasound shows resolution of hydronephrosis. Stone analysis confirmed calcium oxalate composition. Educated patient on dietary modifications to prevent recurrence, including increasing water intake to 80-96 ounces daily and reducing intake of high-oxalate foods. Advised to discontinue excessive vitamin C and vitamin D supplementation until levels are monitored by primary care. Ordered follow-up abdominal X-ray to monitor for any further stone formation; to be completed at [facility] in [place] Orders: UA DIP, URINE (POC) XR ABDOMEN 1V SUPINE; Future Malignant neoplasm of prostate (HCC) - History of prostate cancer with prostatectomy in 2016. No recent PSA levels available. Discussed importance of regular PSA monitoring to detect recurrence. Ordered PSA test; patient to complete at [facility] in [place]. Will follow up with results. Orders: UA DIP, URINE (POC) PROSTATE-SPECIFIC ANTIGEN DIAGNOSTIC; Future FOLLOW UP: Return in about 1 year (around 08/02/2025) for KUB. PSA to be completed alvino. . CHIEF COMPLAINT: Patient presents with: Post-Op Visit HISTORY OF PRESENT ILLNESS: Prior notes were reviewed. Pt known to Dr. Gunn with hx of prostate cancer. Last seen in 2015. Hx of RARP, PLND 05/2023. 4+3=7. Seen in consult 05/28/24 for right ureteral stone. Underwent right ureteral stent placement on 05/28/24 and definitive stone treatment on 06/18/24 with right ureteroscopy with laser lithotripsy, stone basket extraction, and right ureteral stent removal. Prostate Cancer: - Diagnosed in 2016; underwent prostatectomy. - Initially monitored with PSA levels every 6 months, showing levels around 0.03. - Discontinued follow-up due to inconvenience and dissatisfaction with local urologist. - Family history of prostate cancer; father from the disease. - Reports recent elevated PSA level noted by family doctor. - Experiences urinary incontinence, requiring a pad due to leakage with coughing or laughing. - Asks about nocturia, previously attributed to an enlarged prostate. Kidney Stones: - Recent episode of kidney stones; stones sent to pathology. - Reports low water intake historically, now drinks 1-2 bottles of water daily. - Taking vitamin C and vitamin D supplements, recently reduced dosage. REVIEW OF SYSTEMS GENERAL:denies unintentional weight loss, malaise or fevers. NEUROLOGIC: pt is alert and oriented GASTROINTESTINAL: No nausea, vomiting, or diarrhea GENITOURINARY: See HPI MUSCULOSKELETAL: Negative for joint pain or swelling, back pain or muscle pain SKIN: Negative for lesions, rash, and itching. ALLERGIES: ALLERGIES No Known Allergies MEDICATIONS: Ascorbic Acid 1,000 mg tablet Take 2,000 mg by mouth two times a day. Cholecalciferol, Vitamin D3, 250 mcg (10,000 unit) cap Take 5,000 Units by mouth two times a day. vit A/vit C/vit E/zinc/copper (PRESERVISION AREDS ORAL) Take 1 tablet by mouth two times a day. elderberry fruit (ELDERBERRY ORAL) Take 2 Tablespoonsful by mouth once daily. OXYGEN, HOME THERAPY, Inhale 2 L/min as instructed as needed for wheezing/shortness of breath (as need if sats goes below 90% - 06/13/24 patient states he hasn't needed it in months). ipratropium-albuterol (DUONEB) 0.5 mg-3 mg(2.5 mg base)/3 mL nebu Inhale 3 mL as instructed every 4 hours as needed for wheezing/shortness of breath. tiotropium Br/olodaterol HCl (STIOLTO RESPIMAT INHALATION) Inhale 2 Puffs as instructed once daily. 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 Read for kidney stones PYELOTOMY W/REMOVAL CALCULUS Right 2024 TOTAL HIP REPLACEMENT Right FAMILY HISTORY Problem Relation Age of Onset Cancer Father prostate Social History Tobacco Use Smoking status: Former Current packs/day: 1.50 Average packs/day: 1.5 packs/day for 8.3 years (12.5 ttl pk-yrs) Types: Cigarettes Start date: 2016 Smokeless tobacco: Current Types: Snuff Tobacco comments: 06/13/24 uses a can every 2 days Vaping Use Vaping status: Never Used Substance Use Topics Alcohol use: Yes Comment: very rarely- can go months without Drug use: Never PHYSICAL EXAMINATION: BP 112/64 Pulse 65 SpO2 94% Constitutional: In no acute distress. Well appearing. Respiratory: Normal respiratory effort without use of accessory muscles. Musculoskeletal: No LE edema or tenderness; Normal gait and station Cardiovascular: Regular rate Gastrointestinal: Soft, non-distended, non-tender, denies CVA tenderness DATA: Imaging: Renal us - US KIDNEY/BLADDER Result Date: 07/17/2024 IMPRESSION: 1. No hydronephrosis present on today's exam. No renal calculi detected. Back Winder: ROSAURA Transcribe Date/Time: Jul 17 2024 3:05P Dictated by : SANTOS CAMPBELL MD This examination was interpreted and the report reviewed and electronically signed by: SANTOS CAMPBELL MD on Jul 17 2024 3:09PM EST KUB - XR ABDOMEN 1V SUPINE Result Date: 05/28/2024 IMPRESSION: Limited study. No calculi identified. Back Winder: [employer] Transcribe Date/Time: May 28 2024 11:33A Dictated by : MARLON CHUA MD This examination was interpreted and the report reviewed and electronically signed by: MARLON CHUA MD on May 28 2024 11:38AM EST Clinic: GLUCOSE UA (POCT) (mg/dL) Date Value 08/02/2024 Negative BILIRUBIN UA (POCT) (no units) Date Value 08/02/2024 Negative KETONE UA (POCT) (mg/dL) Date Value 08/02/2024 Negative SPECIFIC GRAVITY UA (POCT) (no units) Date Value 08/02/2024 >=1.030 HEMOGLOBIN/BLOOD UA (POCT) (no units) Date Value 08/02/2024 Negative PH UA (POCT) (no units) Date Value 08/02/2024 5.5 PROTEIN UA (POCT) (mg/dL) Date Value 08/02/2024 Negative UROBILINOGEN UA (POCT) (E.U./dL) Date Value 08/02/2024 0.2 NITRITE UA (POCT) (no units) Date Value 08/02/2024 Negative LEUKOCYTES UA (POCT) (no units) Date Value 08/02/2024 Negative COLOR UA (POCT) (no units) Date Value 08/02/2024 Yellow CLARITY UA (POCT) (no units) Date Value 08/02/2024 Clear Laboratory: Creatinine Date Value Ref Range Status 06/11/2024 0.90 0.73 - 1.22 mg/dL Final PSA (ng/mL) Date Value 02/18/2016 <0.03 08/06/2015 <0.03 08/21/2014 <0.03 02/21/2014 <0.03 08/29/2013 <0.03 06/13/2013 <0.03 01/22/2013 3.36 I have reviewed the problem list, family history, and social history documented by my ancillary staff. Chun Cadet APRN.MARINE SERVICES TECHNICIAN CNOV Observed: 08/02/2024 9:20 AM Status: COMPLETED Source: [facility] Office Visit ([id number]) BRINA MACHADO JR. ([id number]) 1950 M Date Time Provider Department 08/02/24 9:20 AM CHUN CADET [id number] During your visit today, we recorded the following information about you: Pulse Blood pressure 65/minute 112/64 Chun Cadet APRN.CNP 08/02/2024 9:48 AM Signed [facility] ESTABLISHED PATIENT FOLLOW-UP NOTE PATIENT: Brina Machado (74 year old) PCP: Esteban Covington, DO Assessment AND Plan Right ureteral stone - Recent renal ultrasound shows resolution of hydronephrosis. Stone analysis confirmed calcium oxalate composition. Educated patient on dietary modifications to prevent recurrence, including increasing water intake to 80-96 ounces daily and reducing intake of high-oxalate foods. Advised to discontinue excessive vitamin C and vitamin D supplementation until levels are monitored by primary care. Ordered follow-up abdominal X-ray to monitor for any further stone formation; to be completed at [facility] in [place] Orders: UA DIP, URINE (POC) XR ABDOMEN 1V SUPINE; Future Malignant neoplasm of prostate (HCC) - History of prostate cancer with prostatectomy in 2016. No recent PSA levels available. Discussed importance of regular PSA monitoring to detect recurrence. Ordered PSA test; patient to complete at [facility] in [place]. Will follow up with results. Orders: UA DIP, URINE (POC) PROSTATE-SPECIFIC ANTIGEN DIAGNOSTIC; Future FOLLOW UP: Return in about 1 year (around 08/02/2025) for KUB. PSA to be completed alvino. . CHIEF COMPLAINT: Patient presents with: Post-Op Visit HISTORY OF PRESENT ILLNESS: Prior notes were reviewed. Pt known to Dr. Gunn with hx of prostate cancer. Last seen in 2015. Hx of RARP, PLND 05/2023. 4+3=7. Seen in consult 05/28/24 for right ureteral stone. Underwent right ureteral stent placement on 05/28/24 and definitive stone treatment on 06/18/24 with right ureteroscopy with laser lithotripsy, stone basket extraction, and right ureteral stent removal. Prostate Cancer: - Diagnosed in 2016; underwent prostatectomy. - Initially monitored with PSA levels every 6 months, showing levels around 0.03. - Discontinued follow-up due to inconvenience and dissatisfaction with local urologist. - Family history of prostate cancer; father from the disease. - Reports recent elevated PSA level noted by family doctor. - Experiences urinary incontinence, requiring a pad due to leakage with coughing or laughing. - Asks about nocturia, previously attributed to an enlarged prostate. Kidney Stones: - Recent episode of kidney stones; stones sent to pathology. - Reports low water intake historically, now drinks 1-2 bottles of water daily. - Taking vitamin C and vitamin D supplements, recently reduced dosage. REVIEW OF SYSTEMS GENERAL:denies unintentional weight loss, malaise or fevers. NEUROLOGIC: pt is alert and oriented GASTROINTESTINAL: No nausea, vomiting, or diarrhea GENITOURINARY: See HPI MUSCULOSKELETAL: Negative for joint pain or swelling, back pain or muscle pain SKIN: Negative for lesions, rash, and itching. ALLERGIES: ALLERGIES No Known Allergies MEDICATIONS: Ascorbic Acid 1,000 mg tablet Take 2,000 mg by mouth two times a day. Cholecalciferol, Vitamin D3, 250 mcg (10,000 unit) cap Take 5,000 Units by mouth two times a day. vit A/vit C/vit E/zinc/copper (PRESERVISION AREDS ORAL) Take 1 tablet by mouth two times a day. elderberry fruit (ELDERBERRY ORAL) Take 2 Tablespoonsful by mouth once daily. OXYGEN, HOME THERAPY, Inhale 2 L/min as instructed as needed for wheezing/shortness of breath (as need if sats goes below 90% - 06/13/24 patient states he hasn't needed it in months). ipratropium-albuterol (DUONEB) 0.5 mg-3 mg(2.5 mg base)/3 mL nebu Inhale 3 mL as instructed every 4 hours as needed for wheezing/shortness of breath. tiotropium Br/olodaterol HCl (STIOLTO RESPIMAT INHALATION) Inhale 2 Puffs as instructed once daily. 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 Read for kidney stones PYELOTOMY W/REMOVAL CALCULUS Right 2024 TOTAL HIP REPLACEMENT Right FAMILY HISTORY Problem Relation Age of Onset Cancer Father prostate Social History Tobacco Use Smoking status: Former Current packs/day: 1.50 Average packs/day: 1.5 packs/day for 8.3 years (12.5 ttl pk-yrs) Types: Cigarettes Start date: 2016 Smokeless tobacco: Current Types: Snuff Tobacco comments: 06/13/24 uses a can every 2 days Vaping Use Vaping status: Never Used Substance Use Topics Alcohol use: Yes Comment: very rarely- can go months without Drug use: Never PHYSICAL EXAMINATION: BP 112/64 Pulse 65 SpO2 94% Constitutional: In no acute distress. Well appearing. Respiratory: Normal respiratory effort without use of accessory muscles. Musculoskeletal: No LE edema or tenderness; Normal gait and station Cardiovascular: Regular rate Gastrointestinal: Soft, non-distended, non-tender, denies CVA tenderness DATA: Imaging: Renal us - US KIDNEY/BLADDER Result Date: 07/17/2024 IMPRESSION: 1. No hydronephrosis present on today's exam. No renal calculi detected. Back Winder: PSCB Transcribe Date/Time: Jul 17 2024 3:05P Dictated by : SANTOS CAMPBELL MD This examination was interpreted and the report reviewed and electronically signed by: SANTOS CAMPBELL MD on Jul 17 2024 3:09PM EST KUB - XR ABDOMEN 1V SUPINE Result Date: 05/28/2024 IMPRESSION: Limited study. No calculi identified. Back Winder: PSCB Transcribe Date/Time: May 28 2024 11:33A Dictated by : MARLON CHUA MD This examination was interpreted and the report reviewed and electronically signed by: MARLON CHUA MD on May 28 2024 11:38AM [facility] Clinic: GLUCOSE UA (POCT) (mg/dL) Date Value 08/02/2024 Negative BILIRUBIN UA (POCT) (no units) Date Value 08/02/2024 Negative KETONE UA (POCT) (mg/dL) Date Value 08/02/2024 Negative SPECIFIC GRAVITY UA (POCT) (no units) Date Value 08/02/2024 >=1.030 HEMOGLOBIN/BLOOD UA (POCT) (no units) Date Value 08/02/2024 Negative PH UA (POCT) (no units) Date Value 08/02/2024 5.5 PROTEIN UA (POCT) (mg/dL) Date Value 08/02/2024 Negative UROBILINOGEN UA (POCT) (E.U./dL) Date Value 08/02/2024 0.2 NITRITE UA (POCT) (no units) Date Value 08/02/2024 Negative LEUKOCYTES UA (POCT) (no units) Date Value 08/02/2024 Negative COLOR UA (POCT) (no units) Date Value 08/02/2024 Yellow CLARITY UA (POCT) (no units) Date Value 08/02/2024 Clear Laboratory: Creatinine Date Value Ref Range Status 06/11/2024 0.90 0.73 - 1.22 mg/dL Final PSA (ng/mL) Date Value 02/18/2016 <0.03 08/06/2015 <0.03 08/21/2014 <0.03 02/21/2014 <0.03 08/29/2013 <0.03 06/13/2013 <0.03 01/22/2013 3.36 I have reviewed the problem list, family history, and social history documented by my ancillary staff. MONTSE Lawrence Tiffany M, APRN.CNP 08/02/2024 9:44 AM Addendum Arrange to have a PSA blood test performed (available at any [facility] facility and does not require fasting) so we can check for prostate cancer recurrence. Schedule a kidney x-ray at a [place] facility to assess for any new kidney stones in 1 year Hold off on taking extra vitamin D supplements until your primary doctor checks your vitamin D levels; also, avoid additional vitamin C. Aim to drink 80-96 ounces of water daily to help reduce your risk of forming more calcium oxylate stones. Stone Prevention Dietary Guidelines: Drink 2-3 liters (64-96 oz) of water per day. Your urine should look like tap water in color (clear to pale yellow). Add lemon/pokagon juice to your water (fresh squeezed or bottled). Moderate your calcium intake-too much or too little calcium causes stones! You should get 800-1200mg of calcium per day (check food labels). Most dietary calcium comes from dairy. For example, 1 8oz glass of milk or two slices of cheese EACH contain about one third of your daily calcium requirements. If you do not like dairy then you should probably start a calcium supplement (calcium citrate is recommended). Limit oxalate-rich foods (nuts, nut butter, tea, chocolate, dark leafy greens, root vegetables, berries, dark beer, soy, and black pepper. Avoid high doses of Vitamin C (>500mg/day) as it turns into oxylate! Limit salt intake (< 3g/day). Avoiding adding salt to food and avoid processed foods. Avoid dark colored camila. Avoid high doses of Vitamin D. Diet- Eat a healthy, balanced, low-fat, high-fiber diet (fruits/veggies). Exercise and weight loss- Excess weight increases your risk of several types of stones. Chun Cadet APRN.DIAMOND 08/02/2024 9:48 AM Edited - History of prostate cancer with prostatectomy in 2016. No recent PSA levels available. Discussed importance of regular PSA monitoring to detect recurrence. Ordered PSA test; patient to complete at [facility] in [place]. Will follow up with results. Orders: UA DIP, URINE (POC) PROSTATE-SPECIFIC ANTIGEN DIAGNOSTIC; Future Chun Cadet APRN.CNP 08/02/2024 9:48 AM Edited - Recent renal ultrasound shows resolution of hydronephrosis. Stone analysis confirmed calcium oxalate composition. Educated patient on dietary modifications to prevent recurrence, including increasing water intake to 80-96 ounces daily and reducing intake of high-oxalate foods. Advised to discontinue excessive vitamin C and vitamin D supplementation until levels are monitored by primary care. Ordered follow-up abdominal X-ray to monitor for any further stone formation; to be completed at [facility] in [place] Orders: UA DIP, URINE (POC) XR ABDOMEN 1V SUPINE; Future Allergies As of Date: 08/02/2024 (No Known Allergies) Date Reviewed: 08/02/2024 Reviewed by: Jennifer Shin MA - Fully Assessed Reason for Visit: Post-Op Visit [1236] Primary Visit Diagnosis:Right ureteral stone [N20.1] Other Visit Diagnosis:Malignant neoplasm of prostate (HCC) [C61] Order(s):UA DIP, URINE (POC) [4021847] Order #: [id number]. #:[id number] PROSTATE-SPECIFIC ANTIGEN DIAGNOSTIC [SQPSA] Order #: [id number] FUTURE XR ABDOMEN 1V SUPINE [[id number]] Order #: [id number] FUTURE Prescriptions as of 08/02/2024 - Ascorbic Acid 1,000 mg tablet Take 2,000 mg by mouth two times a day. - Cholecalciferol, Vitamin D3, 250 mcg (10,000 unit) cap Take 5,000 Units by mouth two times a day. - vit A/vit C/vit E/zinc/copper (PRESERVISION AREDS ORAL) Take 1 tablet by mouth two times a day. - elderberry fruit (ELDERBERRY ORAL) Take 2 Tablespoonsful by mouth once daily. - OXYGEN, HOME THERAPY, Inhale 2 L/min as instructed as needed for wheezing/shortness of breath (as need if sats goes below 90% - 06/13/24 patient states he hasn't needed it in months). - ipratropium-albuterol (DUONEB) 0.5 mg-3 mg(2.5 mg base)/3 mL nebu Inhale 3 mL as instructed every 4 hours as needed for wheezing/shortness of breath. - tiotropium Br/olodaterol HCl (STIOLTO RESPIMAT INHALATION) Inhale 2 Puffs as instructed once daily. Problem List As Of Date 08/02/2024 Noted Resolved BPH W URINARY OBS/LUTS [N40.1, N13.8] 01/17/2007 BLADDER NECK OBSTRUCTION [N32.0] 01/17/2007 Family history of prostate cancer [Z80.42] 01/22/2013 Scrotal mass [N50.89] 01/22/2013 Spermatocele [N43.40] 02/21/2013 Malignant neoplasm of prostate [C61] 04/18/2013 Right ureteral stone [N20.1] 05/28/2024 Leukocytosis [D72.829] 05/28/2024 Renal calculi [N20.0] 05/28/2024 Prostate cancer (HCC) [C61] 05/28/2024 Complicated UTI (urinary tract infection) [N39.*05/30/2024 Preop testing [Z01.818] 06/15/2024 Other instructions from your clinician: Arrange to have a PSA blood test performed (available at any [facility] facility and does not require fasting) so we can check for prostate cancer recurrence. Schedule a kidney x-ray at a [place] facility to assess for any new kidney stones in 1 year Hold off on taking extra vitamin D supplements until your primary doctor checks your vitamin D levels; also, avoid additional vitamin C. Aim to drink 80-96 ounces of water daily to help reduce your risk of forming more calcium oxylate stones. Stone Prevention Dietary Guidelines: Drink 2-3 liters (64-96 oz) of water per day. Your urine should look like tap water in color (clear to pale yellow). Add lemon/pokagon juice to your water (fresh squeezed or bottled). Moderate your calcium intake-too much or too little calcium causes stones! You should get 800-1200mg of calcium per day (check food labels). Most dietary calcium comes from dairy. For example, 1 8oz glass of milk or two slices of cheese EACH contain about one third of your daily calcium requirements. If you do not like dairy then you should probably start a calcium supplement (calcium citrate is recommended). Limit oxalate-rich foods (nuts, nut butter, tea, chocolate, dark leafy greens, root vegetables, berries, dark beer, soy, and black pepper. Avoid high doses of Vitamin C (>500mg/day) as it turns into oxylate! Limit salt intake (< 3g/day). Avoiding adding salt to food and avoid processed foods. Avoid dark colored camila. Avoid high doses of Vitamin D. Diet- Eat a healthy, balanced, low-fat, high-fiber diet (fruits/veggies). Exercise and weight loss- Excess weight increases your risk of several types of stones. Level of Service: OFFICE/OUTPATIENT ESTABLISHED MOD MDM 30 MIN [31615] Additional E/M codes: VISIT CPLX INHERENT EANDM ASSOC WITH MED * Disposition: Return in about 1 year (around 08/02/2025) for KUB. PSA to be completed alvino. . Follow-up and Disposition History for Encounter Date Provider Department Center 08/02/2024 [id number] Priti [place] Encounter Status:Closed by CHUN CADET on 08/02/24 PROGRESS Observed: 07/16/2024 8:30 AM Status: COMPLETED Source: [facility] HNO ID: [id number] Author: NICKY BRONSON RDMS Service: ? Author Type: Distribution Tech Type: Progress Notes Filed: 07/16/2024 08:26 Note Text: Radiology Service Progress Note PATIENT NAME: Brina Machado Jr. DATE OF SERVICE: July 16, 2024 TIME: 8:26 AM PATIENT IDENTITY VERIFICATION COMPLETED USING TWO (2) IDENTIFIERS: Name and Date of confirmed by patient verbally. FALL SCREENING: Has the patient had 2 falls in the last year or 1 fall with injury or currently using an Ambulatory Assistive Device (Walker, Cane, Wheelchair, Crutches, etc.)? No PATIENT GENDER DATA: Assigned male at PATIENT RELEVANT IMPLANT DATA REVIEWED: Not Applicable PATIENT PRESENTS WITH AN IMPLANTABLE OR ATTACHED DEPOSITION OPERATOR: No RADIOLOGY DEPARTMENT: Ultrasound PERIPHERAL IV DATA: Not applicable SIGNED BY: Nicky Bronson RDMS RVT July 16, 2024 8:26 AM US KIDNEY/BLADDER Observed: 07/16/2024 8:25 AM Status: F Source: [facility] * * *Final Report* * * DATE OF EXAM: Jul 16 2024 8:25AM WRU 1055 - US KIDNEY/BLADDER / PROCEDURE REASON: Right ureteral stone * * * * Physician Interpretation * * * * EXAMINATION: RENAL ULTRASOUND CLINICAL HISTORY: Right ureteral stone seen on prior CT scan. TECHNIQUE: Sonography of the kidneys and urinary bladder was performed. Images were obtained and stored in a permanent archive. MQ: UR_1 COMPARISON: Outside CT of the abdomen pelvis with contrast from 05/28/2024 RESULT: Indications limited due to overlying bowel gas. Right Kidney: -Renal length: 10.1 cm -Parenchyma: Normal parenchymal echogenicity. Normal parenchymal thickness. -Collecting system: No hydronephrosis. -Calculus: No echogenic, shadowing calculus. -Lesion: None. Left Kidney: There is limited visualization of the left kidney due to overlying bowel gas. -Renal length: 10.0 cm -Parenchyma: Normal parenchymal echogenicity. Normal parenchymal thickness. -Collecting system: No hydronephrosis. -Calculus: No echogenic, shadowing calculus. -Lesion: None. Bladder: Urinary bladder is underdistended and not adequately evaluated. IMPRESSION: 1. No hydronephrosis present on today's exam. No renal calculi detected. Back W[facility]: [facility] Transcribe Date/Time: Jul 17 2024 3:05P Dictated by : SANTOS CAMPBELL MD This examination was interpreted and the report reviewed and electronically signed by: SANTOS CAMPBELL MD on Jul 17 2024 3:09PM EST [id number] ANES POSTPROC EVAL Observed: 06/18/2024 1:30 PM Status: COMPLETED [id number] Author: JESSICA LUU MD Service: Anesthesiology Author Type: Anesthesiologist Type: Anesthesia Postprocedure Evaluation Filed: 06/18/2024 13:30 Note Text: POST ANESTHESIA EVALUATION NOTE : 1950 Procedure Summary Date: 06/18/24 Room / Location: MR OR 12 / MR OR Anesthesia Start: 1208 Anesthesia Stop: 1249 Procedures: CYSTOSCOPY, RETROPYELOGRAM LASER CYSTOURETHROSCOPY W/ URETEROSCOPY AND/OR PYELOSCOPY W/ LITHOTRIPSY HOLMIUM (Right) CYSTOURETHROSCOPY W/ REMOVE URETERAL STENT (Right) Diagnosis: Ureteral stone (Ureteral stone [N20.1]) Surgeons: Radha Read MD Responsible Provider: Jessica Luu MD Anesthesia Type: general ASA Status: 3 Anesthesia Type: general Airway Type: LMA Last Vitals Vitals Value Taken Time BP 128/70 06/18/24 1315 Temp 36.5 ?C (97.7 ?F) 06/18/24 1249 Pulse 66 06/18/24 1315 Resp 16 06/18/24 1315 SpO2 99 % 06/18/24 1315 Post Anesthesia Patient Status Patient Evaluation: PACU. PACU/ICU Patient Condition: stable. Anticipated Disposition: phase 2 then home. Neurological Status: aware and responsive. Pulmonary Status: breathing comfortably on room air Airway Control: returned to baseline unsupported. Cardiovascular Status: stable. Pain Management: clinically adequate Postoperative Hydration: acceptable. Intraoperative Events: no significant anesthesia events Post Operative Nausea/Vomiting Status: no significant post operative nausea or vomiting Recommendation: continue current plan of care. Anesthesia Observations No Documentation SIGNATURE: Jessica Luu MD PATIENT NAME: Brina Machado Jr. DATE: June 18, 2024 TIME: 1:30 PM CSN: [id number] CALCULI ANALYSIS Collected: 12:31 PM Status: F Source: [facility] Order Comment: Specimen Type : CALCULUS SPECIMEN Ordering Facility: [facility] Address: [address] [place] [address] TYPE CODE TESTS RESULT OUT OF RANGE REFERENCE UNITS LAB CSTYPE CALCULUS TYPE Right ureteral calculi LAB CSCLR CALCULUS COLOR LIGHT BROWN LAB CSSZWT CALCULUS SIZE AND WT Multiple pieces. 0.0052 GRAMS LAB CSCOMP CALCULUS COMPOSITION 1 60% Calcium Oxalate Monohydrate LAB CSCOMP2 CALCULUS COMPOSITION 2 30% Calcium Oxalate Dihydrate LAB CSCOMP3 CALCULUS COMPOSITION 3 10% Minor Components LAB 15473-5(INC) Stone Analysis-Imp Result Comment: This test wa s developed, and its performance characteristics determined by the [facility] Department of Pathology and Laboratory Medicine. It has not been cleared or approved by the FDA. The [facility] Department of Pathology and Laboratory Medicine is regulated under CLIA as qualified to perform high-complexity testing. This test is used for clinical purposes. It should not be regarded as investigational or for research. This test was developed, and its performance characteristics determined by the [facility] Department of Pathology and Laboratory Medicine. It has not been cleared or approved by the FDA. The [facility] Department of Pathology and Laboratory Medicine is regulated under CLIA as qualified to perform high- complexity testing. This test is used for clinical purposes. It should not be regarded as investigational or for research. Performed By: #### CSA #### [facility] CLIA [id number] ANES PROCEDURE NOTE Observed: 06/18/2024 12:21 PM Status: COMPLETED Source: [facility] HNO ID: [id number] Author: MARY LOZADA APRN.JOURNEYMAN ELECTRICIAN PV INSTALLER Service: ? Author Type: Nurse Architectural Drafter Type: Anesthesia Procedure Notes Filed: 06/18/2024 12:21 Note Text: ANESTHESIOLOGY PROCEDURE NOTE Airway General Information Procedure Start Time/Medication Administration: 06/18/2024 12:14 PM Procedure End Time: 06/18/2024 12:14 PM Patient location during procedure: OR Timeout Performed Pre-procedure: timeout performed Consent Obtained: Yes Patient identity confirmed: arm band and patient Staffing Anesthesiologist: Jessica Luu MD JOURNEYMAN ELECTRICIAN PV INSTALLER: Mary Lozada APRN.JOURNEYMAN ELECTRICIAN PV INSTALLER Performed by: JENI Indications and Patient Condition Indications for airway management: anesthesia Preoxygenated: yes anesthesia circuit Patient position: sniffing Method: asleep Cricoid Pressure: No Manual In-Line Stabilization: No Difficult Mask: No Final Airway Details Final airway type: supraglottic airway Number of attempts at approach: 1 Final Supraglottic Airway: i-gel Size 4 Seal Adequate: yes Failed airway: no Unrecognized esophageal intubation: no Airway not difficult SIGNATURE: Mary Enamorado APRN.JOURNEYMAN ELECTRICIAN PV INSTALLER PATIENT NAME: Brina Machado Jr. DATE: June 18, 2024 TIME: 12:21 PM CSN: [id number] OPERATIVE NO Observed: 06/18/2024 12:08 PM Status: COMPLETED Source: [facility] HNO ID: [id number] Author: RADHA READ MD Service: Urology Author Type: Physician Type: Operative Report Filed: 06/18/2024 12:47 Note Text: [facility] OPERATIVE NOTE/REPORT DETAIL NAME: Brina Machado JrGunner Surgery/Procedure Date: 06/18/2024 Procedure(s): Cystoscopy, right ureteroscopy with laser lithotripsy, ureteral stone basket extraction, right ureteral stent removal Pre-Op/Pre-Procedure Diagnosis: Active Hospital Problems Diagnosis Date Noted Right ureteral stone 05/28/2024 Post-Op/Post-Procedure Diagnosis: same Surgeon(s)/Proceduralist(s) and Clinic Coordinator(s): Surgeons and Role: * Radha Read MD - Primary Operative Indications: Brina Machado Jr. is a 74 year old male with a right ureteral stone. Procedure with risks, benefits and alternatives were reviewed with patient. All questions answered. Patient/guardian gives informed consent to proceed with procedure. Findings: Normal urethra. Prostate with mild trilobar enlargement. Bladder surveyed entirely. No stones noted. No mucosal lesions. Bilateral ureteral orifices of normal caliber, location, and number. Mild bladder trabeculation. Normal bladder volume. The stone was located in the expected position. It was partially impacted into the right ureteral wall, but the wall appeared intact. Uncomplicated laser lithotripsy and stone basket extraction. Stent was removed intact. Anesthesia: General Estimated Blood Loss: zero cc Specimens: Right ureteral calculus Drains: none Complications: None immediate Procedure Narrative: The patient was seen and examined in the pre-operative area. A surgical check in was performed per protocol. The patient was taken back to the operative suite. Anesthesia was administered. The patient was transitioned into a dorsal lithotomy position per protocol. All pressure points were padded. Prepped and draped in the usual sterile fashion. A time-out was performed. A cystoscope was passed into the urinary bladder. The bladder and urethral were visualized in their entirety with the findings as above. Bilateral ureteral orifices were in normal anatomic position and of normal number. Laterality confirmation performed. A ureteral stent was present and this was removed intact with graspers. A 0.035 wire was placed without difficulty into the ureter and up to the kidney under fluoroscopic guidance. A semi-rigid ureteroscope was advanced up the ureter to the level of the stone(s). A 365 micron Thulium laser fiber was used to fragment the calculus into tiny fragments. The fragments were removed utilizing a stone basket. At the conclusion of this portion of the procedure, the ureter was intact and no additional fragments remained. No masses or lesions of the ureter. The decision was made not to leave a ureteral stent as the ureter was intact, patent, and free of stone. Hemostasis was excellent. The patient's bladder was drained and the cystoscope was removed. The patient tolerated the procedure well. Surgical counts were correct. The patient was awoken from anesthesia and transferred to the transport bed without incident. Disposition: The patient was transferred to the PACU in stable condition. Surgical findings were discussed with the patient's available contact per the patient's wishes. Plan of care: Discharge to home. We discussed concerning signs and symptoms and patient knows to report these immediately. If unable to reach their urologist, patient knows to report to emergency department for evaluation. Dr. Read performed all of the norman and critical portions of the procedure with the phlebotomist medical lab assistant. Dr. Read was immediately available for all other portions of the procedure. LOG ID: [id number] Incision/Procedure Start Time: 12:20 PM Incision Close/Procedure End Time: 12:39 PM SIGNATURE: Radha Read MD PATIENT NAME: Brina Machado Jr. DATE: June 18, 2024 TIME: 12:46 PM HISTORY PHYSICAL Observed: 06/18/2024 11:37 AM Status: COMPLETED [facility] [id number] Author: RADHA READ MD Service: Urology Author Type: Physician Type: H&P Filed: 06/18/2024 11:37 Note Text: [facility] SURGICAL HISTORY AND PHYSICAL EXAMINATION NOTE SERVICE DATE: June 18, 2024 PRIMARY CARE PHYSICIAN: Esteban Covington DO ASSESSMENT: Active Hospital Problems Diagnosis Date Noted Right ureteral stone 05/28/2024 PLAN: Procedure(s): CYSTOSCOPY, RETROPYELOGRAM (N/A) LASER CYSTOURETHROSCOPY W/ URETEROSCOPY AND/OR PYELOSCOPY W/ LITHOTRIPSY HOLMIUM (Right) CYSTOURETHROSCOPY W/ REMOVE URETERAL STENT (Right) CHIEF COMPLAINT: Active Hospital Problems Diagnosis Date Noted Right ureteral stone 05/28/2024 Subjective Mr. Machado is a 74 year old male who presents with the above complaint for planned surgery. Patient states no changes to medical history since our last visit. We discussed the planned procedure. Risks, benefits, and alternatives of the procedure were discussed. Patient acknowledges understanding and consents to proceed. 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 Read for kidney stones TOTAL HIP REPLACEMENT Right FAMILY HISTORY Problem Relation Age of Onset Cancer Father prostate Social History Tobacco Use Smoking status: Former Current packs/day: 1.50 Types: Cigarettes Smokeless tobacco: Current Types: Snuff Tobacco comments: 06/13/24 uses a can every 2 days Vaping Use Vaping status: Never Used Substance Use Topics Alcohol use: Yes Comment: very rarely- can go months without Drug use: Never cephALEXin (KEFLEX) 500 mg capsule, Take 1 capsule by mouth three times a day for 7 days., Disp: 21 capsule, Rfl: 0, Taking Ascorbic Acid 1,000 mg tablet, Take 2,000 mg by mouth two times a day., Disp: , Rfl: , Taking Cholecalciferol, Vitamin D3, 250 mcg (10,000 unit) cap, Take 5,000 Units by mouth two times a day., Disp: , Rfl: , Taking vit A/vit C/vit E/zinc/copper (PRESERVISION AREDS ORAL), Take 1 tablet by mouth two times a day., Disp: , Rfl: , Taking elderberry fruit (ELDERBERRY ORAL), Take 2 Tablespoonsful by mouth once daily., Disp: , Rfl: , Taking ipratropium-albuterol (DUONEB) 0.5 mg-3 mg(2.5 mg base)/3 mL nebu, Inhale 3 mL as instructed every 4 hours as needed for wheezing/shortness of breath., Disp: , Rfl: , Taking As Needed tiotropium Br/olodaterol HCl (STIOLTO RESPIMAT INHALATION), Inhale 2 Puffs as instructed once daily., Disp: , Rfl: , 06/18/2024 at 8:00 AM OXYGEN, HOME THERAPY,, Inhale 2 L/min as instructed as needed for wheezing/shortness of breath (as need if sats goes below 90% - 06/13/24 patient states he hasn't needed it in months)., Disp: , Rfl: Current Facility-Administered Medications Medication Dose Route Frequency lactated ringers iv infusion 30 mL/hr INTRAVENOUS CONTINUOUS NaCl 0.9% iv flush bag 20 mL INTRAVENOUS PRN ceFAZolin iv piggyback 2 g in D5W (iso-osmotic) 100 mL (ANCEF) 2 g INTRAVENOUS Pre-Op Once Allergies As of Date: 05/31/2024 (No Known Allergies) Fully Assessed 05/30/2024 PHYSICAL EXAM Examination indicates no changes. LUNGS: Respirations unlabored. No wheezing. No cough CARDIAC: Regular rate SIGNATURE: Radha Read MD PATIENT NAME: Brina Machado Jr. DATE: June 18, 2024 TIME: 11:37 AM ANES PRE-OP Observed: 06/18/2024 11:07 AM Status: COMPLETED Source: [facility] HNO ID: [id number] Author: JESSICA LUU MD Service: Anesthesiology Author Type: Anesthesiologist Type: Anesthesia Preprocedure Evaluation Filed: 06/18/2024 11:10 Note Text: ANESTHESIOLOGY DAY OF SURGERY NOTE : 1950 Procedure Information Date/Time: 06/18/24 1200 Procedures: CYSTOSCOPY, RETROPYELOGRAM LASER CYSTOURETHROSCOPY W/ URETEROSCOPY AND/OR PYELOSCOPY W/ LITHOTRIPSY HOLMIUM (Right) CYSTOURETHROSCOPY W/ REMOVE URETERAL STENT (Right) Location: MR OR 12 / MR OR Surgeons: Radha Read MD Estimated body mass index is 22.51 kg/m? as calculated from the following: Height as of this encounter: 170.2 cm (5' 7). Weight as of this encounter: 65.2 kg (143 lb 11.8 oz). Most recent hematocrit and potassium results: Hematocrit 43.2 06/11/2024 Potassium 4.3 06/11/2024 Relevant Problems -RENAL (+) Renal calculi 74 yo male with HX: COPD, kidney stones, prostate cancer, hematuria I - PHYSICAL EVALUATION AIRWAY Patient intubated: No. Tracheostomy tube not present Mallampati: II. TM distance: >3 FB. Neck ROM: full ROM without neurological symptoms. Mouth opening: adequate. Short neck: no. Thick neck: no Pavon present: yes DENTAL Dental findings: missing tooth/teeth. Dentures, upper: complete. Dentures, lower: partial. Additional exam findings: yes. CARDIOVASCULAR Rhythm: regular PULMONARY Breath sounds clear to auscultation. II - ANESTHESIA PLAN ASA Score: 3 Anesthetic Plan: general Airway type: LMA The patient is not a current smoker. NPO Status: adequate Beta Yani Monitoring Plan Monitoring plan: standard ASA. Post Procedure Analgesic Plan Postoperative analgesic plan: parenteral or oral opioids. Informed Consent Anesthetic risks, benefits, alternatives, personnel and consent discussed: yes. Patient / Responsible Libertarian agrees to proceed: yes Patient / Surrogate agrees to blood products: blood products not planned Vitals Value Taken Time BP 127/58 06/18/24 1024 Pulse 67 06/18/24 1021 Resp 20 06/18/24 1018 Temp 36.4 ?C (97.6 ?F) 06/18/24 1018 SpO2 97 % 06/18/24 1022 Vitals shown include unfiled device data. Facility-Administered Medications as of 06/18/2024 Medication Dose Route Frequency - [COMPLETED] lidocaine (PF) 10 mg/mL (1 %) 2 mg injection (XYLOCAINE) 0.2 mL INTRADERMAL PRN - lactated ringers iv infusion 30 mL/hr INTRAVENOUS CONTINUOUS - NaCl 0.9% iv flush bag 20 mL INTRAVENOUS PRN - ceFAZolin iv piggyback 2 g in D5W (iso-osmotic) 100 mL (ANCEF) 2 g INTRAVENOUS Pre-Op Once Outpatient Medications as of 06/18/2024 Medication Sig - Ascorbic Acid 1,000 mg tablet Take 2,000 mg by mouth two times a day. - Cholecalciferol, Vitamin D3, 250 mcg (10,000 unit) cap Take 5,000 Units by mouth two times a day. - vit A/vit C/vit E/zinc/copper (PRESERVISION AREDS ORAL) Take 1 tablet by mouth two times a day. - elderberry fruit (ELDERBERRY ORAL) Take 2 Tablespoonsful by mouth once daily. - ipratropium-albuterol (DUONEB) 0.5 mg-3 mg(2.5 mg base)/3 mL nebu Inhale 3 mL as instructed every 4 hours as needed for wheezing/shortness of breath. - tiotropium Br/olodaterol HCl (STIOLTO RESPIMAT INHALATION) Inhale 2 Puffs as instructed once daily. - OXYGEN, HOME THERAPY, Inhale 2 L/min as instructed as needed for wheezing/shortness of breath (as need if sats goes below 90% - 06/13/24 patient states he hasn't needed it in months). - [] cephALEXin (KEFLEX) 500 mg capsule Take 1 capsule by mouth four times daily for 7 days. - [] oxyCODONE IR (ROXICODONE) 5 mg immediate release tablet Take 1 tablet by mouth every 8 hours as needed for pain for up to 5 days. I have interviewed and examined the patient. I have reviewed the medical record and/or the pre-anesthesia evaluation, pertinent labs, and test results. This contains updated information obtained within 48 hours of Surgery/Procedure. SIGNATURE: Jessica Luu MD PATIENT NAME: Brina Machado Jr. DATE: June 18, 2024 TIME: 11:07 AM CSN: [id number] CNPN Observed: 06/18/2024 12:00 AM Status: COMPLETED Source: [facility] Telephone (MRPRAD) BRINA MACHADO JR. ([id number]) 1950 M Date Time Provider Department 06/18/24 RADHA READ During your visit today, we recorded the following information about you: Radha Read MD 06/18/2024 12:49 PM Signed Surgery today Follow up Chun 6 weeks with renal US Yvonne Bella 06/19/2024 12:44 PM Signed Ultrasound and visit with Chun are both scheduled. Allergies As of Date: 06/18/2024 (No Known Allergies) Date Reviewed: 06/18/2024 Reviewed by: Lainey Dumont RN - Fully Assessed Reason for Visit: Follow Up [171] Primary Visit Diagnosis:Right ureteral stone [N20.1] Order(s): KIDNEY/BLADDER [[id number]] Order #: [id number] FUTURE Prescriptions as of 06/19/2024 - oxyCODONE-acetaminophen (PERCOCET) 5-325 mg tablet Take 1 tablet by mouth every 6 hours as needed for pain for up to 3 days. - cephALEXin (KEFLEX) 500 mg capsule Take 1 capsule by mouth three times a day for 7 days. - Ascorbic Acid 1,000 mg tablet Take 2,000 mg by mouth two times a day. - Cholecalciferol, Vitamin D3, 250 mcg (10,000 unit) cap Take 5,000 Units by mouth two times a day. - vit A/vit C/vit E/zinc/copper (PRESERVISION AREDS ORAL) Take 1 tablet by mouth two times a day. - elderberry fruit (ELDERBERRY ORAL) Take 2 Tablespoonsful by mouth once daily. - OXYGEN, HOME THERAPY, Inhale 2 L/min as instructed as needed for wheezing/shortness of breath (as need if sats goes below 90% - 06/13/24 patient states he hasn't needed it in months). - ipratropium-albuterol (DUONEB) 0.5 mg-3 mg(2.5 mg base)/3 mL nebu Inhale 3 mL as instructed every 4 hours as needed for wheezing/shortness of breath. - tiotropium Br/olodaterol HCl (STIOLTO RESPIMAT INHALATION) Inhale 2 Puffs as instructed once daily. Problem List As Of Date 06/18/2024 Noted Resolved BPH W URINARY OBS/LUTS [N40.1, N13.8] 01/17/2007 BLADDER NECK OBSTRUCTION [N32.0] 01/17/2007 Family history of prostate cancer [Z80.42] 01/22/2013 Scrotal mass [N50.89] 01/22/2013 Spermatocele [N43.40] 02/21/2013 Malignant neoplasm of prostate [C61] 04/18/2013 Right ureteral stone [N20.1] 05/28/2024 Leukocytosis [D72.829] 05/28/2024 Renal calculi [N20.0] 05/28/2024 Prostate cancer (HCC) [C61] 05/28/2024 Complicated UTI (urinary tract infection) [N39.*05/30/2024 Preop testing [Z01.818] 06/15/2024 Encounter Status:Closed by RADHA READ on 06/18/24 PROGRESS Observed: 06/15/2024 3:46 PM Status: COMPLETED Source: [facility] HNO ID: [id number] Author: NICKY TODD, RN Service: Nursing Author Type: Registered Nurse Type: Progress Notes Filed: 06/15/2024 15:50 Note Text: PRE-PROCEDURE INSTRUCTIONS TO PREPARE FOR YOUR PROCEDURE: Your arrival time for your procedure is 1030. Do NOT eat any solid foods after MIDNIGHT the night prior to your procedure - this includes gum or mints. You can drink clear liquids* up until 0830, which is 2 hours before your arrival time. *Clear liquids = water, carbohydrate drink (sports drink that is clear or yellow in color), Ensure Pre-Surgery (given by FLAVIA or your DrGunner), fruit juice without pulp (apple/cranberry), clear tea, black coffee (no cream). NO CARBONATED BEVERAGES AND NO ALCOHOL. Shower the morning of the procedure, put on clean clothes, and have clean sheets for your bed to help prevent infection after your procedure. Leave all valuables such as jewelry including rings, piercings, wallets, and purses at home. Wear comfortable, loose-fitting clothing. If you wear glasses or contacts, please bring a case. SPECIAL INSTRUCTIONS: If instructed, bring your first voided urine specimen with you. If you were provided skin preparation to use prior to your procedure, complete this as directed. If you were provided Ensure Pre-Surgery drink, you need to drink this at n/a. This should be consumed quickly (in less than 5 minutes, rather than sipped over time) If a bowel preparation has been ordered by your physician, it is very important to follow the bowel prep instructions or your procedure may need to be rescheduled. If you use crutches or a walker, bring them with you. If you have a home CPAP/BIPAP machine, bring it with you. If you were instructed to complete a fleets enema or bowel prep, complete as directed. Bring copy of Living Will/Power of Locks Inspector. Do not smoke or chew. If you use tobacco, quit or at least cut down before surgery. Do not smoke or chew after midnight the day before your surgery. This effects bleeding, infection, healing, and so much more. Do not take any Diet or Herbal Supplements 2 weeks prior to your surgery date. Please notify your physician if there is any change in your physical condition such as a cold, cough, fever, sore throat, or skin irritation near the surgical site. Visitors under the age of 14 are restricted in the Surgery Center. UPON ARRIVAL: Access to [facility] (the [facility] building) is located on [address] [employer] Operator parking is available for your convenience from 5am-5pm- there is a $5.00 charge for this service. Take the elevators directly inside the entrance to the 1st Floor Surgery Lobby. Sign in at the podium located to the left when you get off the elevators. A payment may be expected at the time of service. One visitor may come back to the preoperative area with you. The preoperative staff will be reviewing your medical history, please let them know if you prefer not to have a visitor with you during this time. Once you are ready for your procedure, two visitors at a time are permitted in your preprocedure room. MEDICATION INSTRUCTIONS PRIOR TO SURGERY Please read below carefully for your personalized instructions. Medications: If you are on blood thinner or anticoagulants including aspirin, please confirm with your surgical team on when to stop these medications. Unless instructed differently by your surgical team, stay on all of your medications until your surgery. Pre-Surgery Med Instructions Medication Instructions cephALEXin (KEFLEX) 500 mg capsule DO NOT TAKE MORNING OF SURGERY Ascorbic Acid 1,000 mg tablet Follow Surgeon's instructions Cholecalciferol, Vitamin D3, 250 mcg (10,000 unit) cap Follow Surgeon's instructions vit A/vit C/vit E/zinc/copper (PRESERVISION AREDS ORAL) Follow Surgeon's instructions elderberry fruit (ELDERBERRY ORAL) Follow Surgeon's instructions ipratropium-albuterol (DUONEB) 0.5 mg-3 mg(2.5 mg base)/3 mL nebu PRN if needed tiotropium Br/olodaterol HCl (STIOLTO RESPIMAT INHALATION) Use Day of Surgery If you have any medication changes between receiving these instructions and your surgery date, please provide this updated information with the nurse who calls you the week day prior to your surgical procedure so we can update your list and provide you with updated instructions for the morning of your procedure. PROGRESS Observed: 06/15/2024 8:27 AM Status: COMPLETED Source: [facility] HNO ID: [id number] Author: NONA JASON APRN.DIAMOND Service: ? Author Type: Nurse Practitioner Type: Progress Notes Filed: 06/15/2024 08:28 Note Text: Summary: dos meds MEDICATION INSTRUCTIONS PRIOR TO SURGERY Please read below carefully for your personalized instructions. Medications: If you are on blood thinner or anticoagulants including aspirin, please confirm with your surgical team on when to stop these medications. Unless instructed differently by your surgical team, stay on all of your medications until your surgery. Pre-Surgery Med Instructions Medication Instructions cephALEXin (KEFLEX) 500 mg capsule DO NOT TAKE MORNING OF SURGERY Ascorbic Acid 1,000 mg tablet Follow Surgeon's instructions Cholecalciferol, Vitamin D3, 250 mcg (10,000 unit) cap Follow Surgeon's instructions vit A/vit C/vit E/zinc/copper (PRESERVISION AREDS ORAL) Follow Surgeon's instructions elderberry fruit (ELDERBERRY ORAL) Follow Surgeon's instructions ipratropium-albuterol (DUONEB) 0.5 mg-3 mg(2.5 mg base)/3 mL nebu PRN if needed tiotropium Br/olodaterol HCl (STIOLTO RESPIMAT INHALATION) Use Day of Surgery If you have any medication changes between receiving these instructions and your surgery date, please provide this updated information with the nurse who calls you the week day prior to your surgical procedure so we can update your list and provide you with updated instructions for the morning of your procedure. ANES PREOP Observed: 06/15/2024 8:26 AM Status: COMPLETED Source: [facility] HNO ID: [id number] Author: NONA JASON APRN.MARINE SERVICES TECHNICIAN Service: ? Author Type: Nurse Practitioner Type: Anesthesia PreOp Filed: 06/15/2024 08:27 Note Text: 74 yo male with HX: COPD, kidney stones, prostate cancer, hematuria CNPN Observed: 06/13/2024 12:00 AM Status: COMPLETED Source: [facility] Telephone (URCANT) BRINA MACHADO JR. ([id number]) 1950 M Date Time Provider Department 06/13/24 RADHA READ During your visit today, we recorded the following information about you: Radha Read MD 06/13/2024 12:31 PM Signed UTI present. Rx sent for Jade Melgar MA 06/13/2024 12:43 PM Signed Pt is aware, he would like to know if this will effect his surgery on Tuesday with you Please advise Thank you AMOS Hernandez Mya, MA 06/13/2024 12:48 PM Signed Pt is aware Thank you Jade Monsalve MA Allergies As of Date: 06/13/2024 (No Known Allergies) Date Reviewed: 05/30/2024 Reviewed by: Manny Garcia, RN - Fully Assessed Reason for Visit: Results [95] Order(s):cephALEXin (KEFLEX) 500 mg capsuleTake 1 capsule by mouth three times a day for 7 days.Disp: 21 capsuleRfl: 0 Prescriptions as of 06/13/2024 - cephALEXin (KEFLEX) 500 mg capsule Take 1 capsule by mouth three times a day for 7 days. - ipratropium-albuterol (DUONEB) 0.5 mg-3 mg(2.5 mg base)/3 mL nebu Inhale 3 mL as instructed every 4 hours as needed for wheezing/shortness of breath. - tiotropium Br/olodaterol HCl (STIOLTO RESPIMAT INHALATION) Inhale 2 Puffs as instructed once daily. Problem List As Of Date 06/13/2024 Noted Resolved BPH W URINARY OBS/LUTS [N40.1, N13.8] 01/17/2007 BLADDER NECK OBSTRUCTION [N32.0] 01/17/2007 Family history of prostate cancer [Z80.42] 01/22/2013 Scrotal mass [N50.89] 01/22/2013 Spermatocele [N43.40] 02/21/2013 Malignant neoplasm of prostate [C61] 04/18/2013 Right ureteral stone [N20.1] 05/28/2024 Leukocytosis [D72.829] 05/28/2024 Renal calculi [N20.0] 05/28/2024 Prostate cancer (HCC) [C61] 05/28/2024 Complicated UTI (urinary tract infection) [N39.*05/30/2024 Prescriptions ordered this encounter Disp Refills Start End CEPHALEXIN 500 MG CAPSULE 21 c* 0 06/13/2024 06/20/2024 Route: ORAL Sig: Take 1 capsule by mouth three times a day for 7 days. Encounter Status:Closed by RADHA READ on 06/13/24 URINALYSIS COMPLETE PNL UR Collected: 06/11/2024 10:3 8 AM Status: F Source: [facility] Order Comment: Specimen Type : URINE SPECIMEN Ordering Facility: [facility] Address: [address] [place] [address] TYPE CODE TESTS RESULT OUT OF RANGE REFERENCE UNITS LAB 5778-6(LOINC) Color Ur Rains Abnormal Yellow LAB 29047-2(LOINC) Clarity Spec Turbid Abnormal Clear LAB 5792-7(LOINC) Glucose Ur Strip-mCnc Negative Negative LAB 5770-3(LOINC) Bilirub Ur Ql Strip Negative Negative LAB 2514-8(LOINC) Ketones Ur Strip Trace Abnormal Negative LAB 5811-5(LOINC) Sp Gr Ur Strip 1.020 1.005-1.030 LAB 5794-3(LOINC) Hgb Ur Ql Strip 3+ Abnormal Negative LAB 5803-2(LOINC) pH Ur Strip 5.5 <8.5 LAB 5804-0(LOINC) Prot Ur Strip-mCnc 2+ Abnormal Negative LAB 5818-0(LOINC) Urobilinogen Ur Strip 1.0 EU/dL 0.2-1.0 EU/dL LAB 5802-4(LOINC) Nitrite Ur Ql Strip Positive Abnormal Negative LAB 5799-2(LOINC) Leukocyte esterase Ur Ql Strip 3+ Abnormal Negative LAB 5821-4(LOINC) WBC #/area UrnS HPF >20 /HPF Abnormal 0-5 /HPF LAB 84631-2(LOINC) RBC #/area UrnS HPF >20 /HPF Abnormal 0-2 /HPF LAB [id number] BACTERIA UL 5048.9 High Negative uL LAB 5787-7(LOINC) Epi Cells #/area UrnS HPF None Seen /HPF LAB 5796-8(LOINC) Hyaline Casts #/area UrnS LPF 4-10 /LPF Abnormal 0 /LPF LAB 1CAOX CALCIUM OXALATE CRYSTALS (UA) Moderate Abnormal None Seen /HPF Performed By: #### 630-4, 24 356-8 #### [facility] CLIA [id number] [address] [place] [address] [place] BACTERIA UR CULT Observed: 06/11/2024 10:38 AM Status: F Source: [facility] ORGANISM ID: 1 >=100,000 CFU/ml Escherichia coli ORGANISM ID: 1 (ESCHERICHIA COLI) ----- ----- ANTIBIOTIC INTERPRETATION ANOOP STATUS REFERENCE RANGE ----- ----- Ampicillin S <=2 F Susceptible <=8 , Intermediate >8 , Resistant >16 Cefazolin S <=4 F Susceptible 0-16 , Intermediate <0 or >16 , Resistant >16 For uncomplicated urinary tract infections, cefazolin results can be used to predict susceptibility or resistance to cephalexin. Ceftriaxone S <=1 F Susceptible <=1 , Intermediate >1 , Resistant >=4 Cefepime S <=1 F Susceptible <=2 , Susceptible-Dose Dependent >2 , Resistant >=16 Ertapenem S <=0.5 F Susceptible <=0.5 , Intermediate >.5 , Resistant >1 Meropenem S <=0.25 F Susceptible <=1 , Intermediate >1 , Resistant >2 Ampicillin/Sulbact S <=2 F Susceptible <=8 , Intermediate >8 , Resistant >16 Piperacillin/Tazobac S <=4 F Susceptible <16 , Susceptible-Dose Dependent >=16 , Resistant >=32 Gentamicin S <=1 F Susceptible <=2 , Intermediate >2 , Resistant >=8 Tobramycin S <=1 F Susceptible <4 , Intermediate >=4 , Resistant >=8 Trimeth sulfameth S <=20 F Susceptible <=40 , Resistant >40 Ciprofloxacin S <=0.25 F Susceptible <0.5 , Intermediate >=.5 , Resistant >=1 Nitrofurantoin S <=16 F Susceptible <=32 , Intermediate >32 , Resistant >64 Performed By: #### 630-4, 24 356-8 #### [facility] CLIA [id number] [address] [place], [place] [address] [address] [place] CBC PNL BLD AUTO Collected: 5 10:35 AM Status: F Source: [facility] Order Comment: Specimen Type : BLOOD SPECIMEN Ordering Facility: [facility] Address: [address] [place] [address] TYPE CODE TESTS RESULT OUT OF RANGE REFERENCE UNITS LAB 6690-2([facility]) WBC # Bld Auto 12.02 High 3.70-11.00 k/uL LAB 789-8(LOINC) RBC # Bld Auto 4.62 4.20-6.00 m/uL LAB 718-7(LOINC) Hgb Bld-mCnc 14.4 13.0-17.0 g/dL LAB 4544-3([facility]) Hct VFr Bld Auto 43.2 39.0-51.0 % LAB 787-2(INC) MCV RBC Auto 93.5 80.0-100.0 fL LAB 785-6([facility]) MCH RBC Qn Auto 31.2 26.0-34.0 pg LAB 786-4([facility]) MCHC RBC Auto-mCnc 33.3 30.5-36.0 g/dL LAB 87657-8([facility]) RDW RBC-Rto 13.0 11.5-15.0 % LAB 777-3([facility]) Platelet # Bld Auto 390 150-400 k/uL LAB 54718-7([facility]) PMV Bld Auto 9.6 9.0-12.7 fL LAB 771-6([facility]) nRBC # Bld Auto <0.01 <0.01 k/uL Performed By: #### 68388-2 # ### [facility] CLIA [id number] [address] [place] [address] [place] BAS METAB 2000 PNL SERPL Collected: 01/2025 10:35 AM Status: F Source: [facility] Order Comment: Specimen Type : BLOOD SPECIMEN Ordering Facility: [facility] Address: [address] [place], [place] [address] TYPE CODE TESTS RESULT OUT OF RANGE REFERENCE UNITS LAB 2345-7([facility]) Glucose SerPl-mCnc 107 High 74-99 mg/dL Result Comment: The [place] Diabetes Association (ADA) provides guidance for cutoff values for fasting glucose and random glucose. The ADA defines fasting as no caloric intake for at least 8 hours. Fasting plasma glucose results between 100 to 125 mg/dL indicate increased risk for diabetes (prediabetes). Fasting plasma glucose results greater than or equal to 126 mg/dL meet the criteria for diagnosis of diabetes. In the absence of unequivocal hyperglycemia, results should be confirmed by repeat testing. In a patient with classic symptoms of hyperglycemia or hyperglycemic crisis, random plasma glucose results greater than or equal to 200 mg/dL meet the criteria for diagnosis of diabetes. Reference: Standards of Medical Care in Diabetes 2016, [place] [employer] Association. Diabetes Care. 2016.39(Suppl 1). LAB 3094-0(LOINC) BUN SerPl-mCnc 20 9-24 mg/ dL LAB 2160-0(LOINC) Creat SerPl-mCnc 0.90 0.73-1.22 mg/dL LAB 2951-2(LOINC) Sodium SerPl-sCnc 140 136-144 mmol/L LAB 2823-3(LOINC) Potassium SerPl-sCnc 4.3 3.7-5.1 mmol/L LAB 2075-0(LOINC) Chloride SerPl-sCnc 103 98-107 mmol/L LAB 2028-9(LOINC) CO2 SerPl-sCnc 26 22-30 mmo l/L LAB 45662-5(LOINC) Anion Gap SerPl-sCnc 11 8-15 mmol/L LAB 93927-6(LOINC) Calcium SerPl-mCnc 9.6 8.5-10.2 mg/dL LAB 10925-7(LOINC) Creatinine + eGFR Pnl SerPlBld 90 >=60 mL/min/1 .73m??? Result Comment: Estimated Gl omerular Filtration Rate (eGFR) is calculated using the 2020 CKD-EPI creatinine equation. This equation utilizes serum creatinine, sex, and age as parameters. The creatinine assay has traceable calibration to isotope dilution-mass spectrometry. Refer to KDIGO guidelines for clinical interpretation. In patients with unstable renal function, e.g. those with acute kidney injury, the eGFR may not accurately reflect actual GFR. Performed By: #### 63179-2 # ### [facility] [place] [id number] [address] [place] [address] [place] CNPN Observed: 06/11/2024 12:00 AM Status: COMPLETED Source: [facility] Telephone (URCANT) BRINA MACHADO JR. ([id number]) 1950 L[place] Date Time Provider Department 06/11/24 CHUN CADET During your visit today, we recorded the following information about you: Lissy Hooks MA 06/11/2024 2:36 PM Signed Patient called he has stents he is having surgery on the . Had UA and blood work done today. He is having blood in his urine and is concerned. I advised to drink extra water. Lissy Hooks MA 06/11/2024 2:57 PM Signed Patient advised and voiced understanding Allergies As of Date: 06/11/2024 (No Known Allergies) Date Reviewed: 05/30/2024 Reviewed by: Manny Garcia, RN - Fully Assessed Prescriptions as of 06/11/2024 - ipratropium-albuterol (DUONEB) 0.5 mg-3 mg(2.5 mg base)/3 mL nebu Inhale 3 mL as instructed every 4 hours as needed for wheezing/shortness of breath. - tiotropium Br/olodaterol HCl (STIOLTO RESPIMAT INHALATION) Inhale 2 Puffs as instructed once daily. Problem List As Of Date 06/11/2024 Noted Resolved BPH W URINARY OBS/LUTS [N40.1, N13.8] 01/17/2007 BLADDER NECK OBSTRUCTION [N32.0] 01/17/2007 Family history of prostate cancer [Z80.42] 01/22/2013 Scrotal mass [N50.89] 01/22/2013 Spermatocele [N43.40] 02/21/2013 Malignant neoplasm of prostate [C61] 04/18/2013 Right ureteral stone [N20.1] 05/28/2024 Leukocytosis [D72.829] 05/28/2024 Renal calculi [N20.0] 05/28/2024 Prostate cancer (HCC) [C61] 05/28/2024 Complicated UTI (urinary tract infection) [N39.*05/30/2024 Encounter Status:Closed by LISSY HOOKS on 06/11/24 GIUSEPPE Observed: 06/05/2024 12:00 AM Status: COMPLETED Source: [facility] Telephone (URCANT) BRINA MACHADO JR. ([id number]) 1950 M Date Time Provider Department 06/05/24 RADHA READ During your visit today, we recorded the following information about you: Nessa Shaw 06/05/2024 11:02 AM Signed Patient called and left a voicemail stating he had surgery with Dr. Read and his stomach is still tearing him apart. He had a stent placed 05/28/2024. Is this possibly due to the stent? Sammie Lorenz CMA, LPN 06/05/2024 3:14 PM Signed Spoke to patient and informed him the discomfort and blood in his urine is likely due to the stent, and this is normal. I advised him he could take the pain relievers as prescribed, warm bath/ shower, heating pad etc. for comfort measures. Patient also states over the last year he has been dealing with constipation and abdominal bloating he feels this maybe contributing to his pain also. His PCP is aware of the constipation/ bloating, and he is taking Miralax and probiotic yogurt. Do you have any further recommendations? Thanks Sammie Walker LPN Allergies As of Date: 06/05/2024 (No Known Allergies) Date Reviewed: 05/30/2024 Reviewed by: Manny Garcia, RN - Fully Assessed Reason for Visit: Patient Question [9982] Prescriptions as of 06/05/2024 - cephALEXin (KEFLEX) 500 mg capsule Take 1 capsule by mouth four times daily for 7 days. - ipratropium-albuterol (DUONEB) 0.5 mg-3 mg(2.5 mg base)/3 mL nebu Inhale 3 mL as instructed every 4 hours as needed for wheezing/shortness of breath. - tiotropium Br/olodaterol HCl (STIOLTO RESPIMAT INHALATION) Inhale 2 Puffs as instructed once daily. Problem List As Of Date 06/05/2024 Noted Resolved BPH W URINARY OBS/LUTS [N40.1, N13.8] 01/17/2007 BLADDER NECK OBSTRUCTION [N32.0] 01/17/2007 Family history of prostate cancer [Z80.42] 01/22/2013 Scrotal mass [N50.89] 01/22/2013 Spermatocele [N43.40] 02/21/2013 Malignant neoplasm of prostate [C61] 04/18/2013 Right ureteral stone [N20.1] 05/28/2024 Leukocytosis [D72.829] 05/28/2024 Renal calculi [N20.0] 05/28/2024 Prostate cancer (HCC) [C61] 05/28/2024 Complicated UTI (urinary tract infection) [N39.*05/30/2024 Encounter Status:Closed by NESSA SHAW on 06/05/24 PROGRESS Observed: 05/30/2024 6:30 PM Status: COMPLETED Source: [facility] HNO ID: [id number] Author: RAFAEL BARRAGAN PA Service: Hospital Medicine Author Type: Physician Clinic Coordinator Type: Progress Notes Filed: 06/02/2024 15:42 Note Text: Documentation Query Please clarify status of hydronephrosis Hydronephrosis Ruled In This document will become part of the patient's medical record. CONSULT PROG Observed: 05/30/2024 3:25 PM Status: COMPLETED Source: [facility] HNO ID: [id number] Author: RADHA READ MD Service: Urology Author Type: Physician Type: Consult Progress Note Filed: 05/30/2024 15:27 Note Text: [facility] POST OP PROGRESS NOTE PATIENT: Brina Ta Guillaume Lito (74 year old) SERVICE DATE: 05/30/2024 SUMMARY: 2 Days Post-Op Procedure(s): INSERTION STENT URETERAL ASSESSMENT: Active Hospital Problems Diagnosis Date Noted Renal calculi 05/28/2024 Complicated UTI (urinary tract infection) 05/30/2024 Right ureteral stone 05/28/2024 Leukocytosis 05/28/2024 Prostate cancer (HCC) 05/28/2024 PLAN: Pain control as needed. Diet as tolerated. Urine culture from OSH pending. Patient to follow up with urology outpatient for definitive stone surgery CHIEF COMPLAINT: Pre-Op Diagnosis Codes: * Right ureteral stone [N20.1] SUBJECTIVE: No events overnight. Patient states pain is controlled. Tolerating diet but having some nausea. Ambulating. MEDICATIONS: Current Facility-Administered Medications Medication Dose Route Frequency NaCl 0.9% iv flush bag 20 mL INTRAVENOUS PRN aluminum-magnesium hydroxide-simethicone 200-200-20 mg/5 mL 30 mL 30 mL ORAL DAILY PRN ondansetron 4 mg tab(s) (ZOFRAN) 4 mg ORAL q 6 H PRN Or ondansetron (PF) 4 mg injection (ZOFRAN) 4 mg INTRAVENOUS q 6 H PRN polyethylene glycol 3350 17 g packet 17 g ORAL DAILY PRN acetaminophen 650 mg tab(s) (TYLENOL) 650 mg ORAL q 6 H PRN morphine 2 mg injection 2 mg INTRAVENOUS q 4 H PRN albuterol 2.5 mg /3 mL (0.083 %) 2.5 mg (PROVENTIL) 2.5 mg INHALATION q 4 H PRN cefTRIAXone 1 g in D5W 100 mL Vial-Bag (ROCEPHIN) 1 g INTRAVENOUS q 24 H tiotropium 2.5 mcg - olodaterol 2.5 mcg inhaler (STIOLTO RESPIMAT) 2 Puff INHALATION DAILY PHYSICAL EXAMINATION: BP 152/86 Pulse (!) 59 Temp 36.4 ?C (97.5 ?F) (Oral) Resp 19 Ht 168.9 cm (5' 6.5) Wt 72 kg (158 lb 11.7 oz) SpO2 90% BMI 25.24 kg/m? Verbal informed consent obtained for exam below: Constitutional: No acute distress. Gastrointestinal: soft, nondistended, nontender Cardiovascular: regular rate Respiratory: unlabored Extremities: no calf edema or tenderness DATA: Laboratory: Chemistry: Glucose (mg/dL) Date/Time Value 05/30/2024430 99 BUN (mg/dL) Date/Time Value 05/30/2024 043 16 Creatinine (mg/dL) Date/Time Value 05/30/2024430 0.78 Sodium (mmol/L) Date/Time Value 05/30/2024430 135 (L) Potassium (mmol/L) Date/Time Value 05/30/2024430 3.8 Chloride (mmol/L) Date/Time Value 05/30/2024430 99 CO2 (mmol/L) Date/Time Value 05/30/2024430 31 Calcium, Total (mg/dL) Date/Time Value 05/30/2024430 9.1 CBC: Hemoglobin (g/dL) Date/Time Value 05/30/2024430 14.2 Hematocrit (%) Date/Time Value 05/30/2024430 40.9 WBC (k/uL) Date/Time Value 05/30/2024430 8.56 Platelet Count (k/uL) Date/Time Value 05/30/2024430 263 Urine: Cultures: Culture Results - Past 1 Year Culture 05/28/2024 <10,000 CFU/ml Normal urogenital eloy 05/29/2024 No growth (<1,000 CFU/ml) Susceptibility Tests - Past 1 Year Collected Organism 05/28/24 Normal urogenital eloy SIGNATURE: Radha Read MD UROLOGY STAFF PHYSICIAN DATE: 05/30/2024 PATIENT NAME: Brina Machado Jr. TIME: 3:25 PM CNDS Observed: 05/30/2024 2:07 PM Status: COMPLETED Source: [facility] HNO ID: [id number] Author: SANTOS DOOLEY MD Service: Hospital Medicine Author Type: Physician Clinic Coordinator Type: Discharge Summary Filed: 05/30/2024 17:55 Note Text: Attestation signed by Santos Dooley MD at 05/30/2024 5:55 PM Patient seen and evaluated independently of the nurse practitioner. I spent greater than 50% of the time reviewing patient's chart including paper records from outside facility. Discussing the case with the nurse practitioner coming up with the treatment plan and documenting Hospital course: The patient is a 74-year-old male who initially presented to outside hospital due to complaints of abdominal/flank pain of several days duration. It seemed to be getting worse. He underwent CT scan at their facility that noted a 9 mm stone in the right mid ureter. No hydro was noted at that time. Patient was started on antibiotic for possible UTI/pyelonephritis. Patient initially placed on Rocephin of note patient was seen by urology here and had a cystoscopy and right ureteral stent insertion. Urine culture today with no growth. Due to concern for infection need for additional procedure patient will finish course of Cipro as recommended by urology. Plan for outpatient follow-up with urology for definitive stone treatment Physical exam: General: Elderly male, pleasant, patient is alert and oriented x3 and is in no acute respiratory distress HEENT: Normal cephalic, atraumatic, PERRLA, Mouth normal Lungs: Clear to auscultation, no wheezing, rales, or rhonchi. Cardiac: Regular rhythm and rate, no murmurs, no rubs. Abdomen: Soft, mild lower abdominal tenderness, nondistended, bowel sounds are active. Extremities: No edema, cyanosis, or clubbing. Skin: No rashes or breakdown. Musculoskeletal: Normal MS exam, moves all extremities Lymphatic: Negative cervical, supra-clavicular, groin lymphadenopathy. Neurologic: Cranial nerves from II-XII intact grossly, no focal deficits. Psychiatry: Normal affect. DISCHARGE SUMMARY PATIENT NAME: Brina Machado Jr. ADMISSION DATE: 05/28/2024 DISCHARGE DATE: 05/30/2024 ATTENDING PHYSICIAN: Santos Dooley MD Code Status: Full Code Highest Readmission Risk Score: 5 The 30 day readmissions risk score is derived from an internally validated risk model which evaluates patient level characteristics, utilization history, medication orders and lab results up until the day of discharge. Patients with a score of 39 or above are considered highest risk for readmission. Specific patient level drivers will be listed at the bottom of the summary. CONSULTING TEAMS DURING HOSPITALIZATION: Urology Treatment Team: Attending Provider: Santos Dooley MD Consulting: Radha Read MD Attending: MR LAMONT ROSE APP1 REASON FOR HOSPITALIZATION: R Renal Stone and Suspected UTI DIAGNOSIS: Principal Problem: Renal calculi (POA: Yes) Active Problems: Right ureteral stone (POA: Yes) Leukocytosis (POA: Yes) Prostate cancer (HCC) (POA: Yes) Complicated UTI (urinary tract infection) (POA: Yes) Resolved Problems: * No resolved hospital problems. * Sepsis Ruled Out OPERATIONS DURING HOSPITALIZATION: R Ureteral stent insertion 05/[address] Read PROCEDURES DURING HOSPITALIZATION: No procedures performed HOSPITAL COURSE: Pt is a 74 yo male with PMHx of prostate CA s/p robotic prostatectomy, tobacco abuse who presented with suspected acute cystitis and R Renal calculi. He is s/p R Ureteral stent insertion 05/[address] Read and will follow up as an outpatient for definitive stone management. His urine cultures including one from [facility] were negative, and urology recommended discharge on an empiric cephalosporin. He will complete the remaining 4 days of keflex after discharge. Patient is being discharged in stable condition and agrees with plan. Understands importance of close follow up for re-evaluation and possible repeat vitals/labs/imaging. The problems as detailed below were addressed on admission. #R Ureteral Stone - s/p R Ureteral stent insertion 05/[address] Read and will follow up as an outpatient for definitive stone management. #Suspected UTI - Urine cultures negative (including culture from [facility]). Urology recommended empiric cephalosporin at discharge, so will give 7 remaining days of Keflex at discharge. #Small Pericardial Effusion- Seen on CT from outside hospital. Recommend repeat imaging as an outpatient as indicated. #Hx Prostate CA- Repeat PSA as an outpatient as indicated. Review of Systems Constitutional: Negative for chills and fever. Respiratory: Negative for shortness of breath. Cardiovascular: Negative for chest pain. Gastrointestinal: Positive for abdominal pain. Negative for constipation, nausea and vomiting. Subjective: reports ongoing primarily R-sided abd pain similar to his presenting abdominal pain. Has been relieved with pain meds here in the hospital. He continues to have normal bowel movements and normal UOP. Has been tolerating a diet well without nausea, vomiting. Does not feel the pain is severe enough that he would want to delay his discharge but was agreeable to call urology and/or his PCP if the pain is persistent or worsening. Transitions of Care Critical Issues: SPECIALIST FOLLOW-UP: Urology [place] MEDICATION CHANGES: antibiotic LABS AND PROCEDURES PENDING AT DISCHARGE: No pending results. PATIENT CONDITION AT DISCHARGE: Stable DISCHARGE DISPOSITION: Home with Self Care PHYSICAL EXAM Physical Exam Constitutional: General: He is not in acute distress. Appearance: He is not ill-appearing. Comments: Pleasant and cooperative elderly male sitting up in bed, NAD. Cardiovascular: Rate and Rhythm: Normal rate and regular rhythm. Heart sounds: Normal heart sounds. Pulmonary: Effort: Pulmonary effort is normal. Breath sounds: Normal breath sounds. Abdominal: General: Bowel sounds are normal. There is no distension. Palpations: Abdomen is soft. There is no mass. Tenderness: There is abdominal tenderness (mild, Primarily R-sided). Neurological: Mental Status: He is alert. Psychiatric: Mood and Affect: Mood normal. Behavior: Behavior normal. DIET: Resume pre-hospital diet ACTIVITY: Resume pre-hospital activity ALLERGIES No Known Allergies DISCHARGE MEDICATION: Medication List START taking these medications cephALEXin 500 mg capsule Commonly known as: KEFLEX Take 1 capsule by mouth four times daily for 7 days. oxyCODONE IR 5 mg immediate release tablet Commonly known as: ROXICODONE Take 1 tablet by mouth every 8 hours as needed for pain for up to 5 days. CONTINUE taking these medications ipratropium-albuterol 0.5 mg-3 mg(2.5 mg base)/3 mL Nebu Commonly known as: DUONEB STIOLTO RESPIMAT INHALATION Where to Get Your Medications [facility] [address] [place] [address] [address] [facility] - [phone] [facility] [address] [facility] [address] cephALEXin 500 mg capsule oxyCODONE IR 5 mg immediate release tablet FUTURE APPOINTMENTS: Follow Up with PCP: Esteban Covington, No future appointments. Orders for follow up appointments placed to: The patient's risk for 30-day readmission is determined using the following contributing factors: Predictive Model Details 5% (Low) Factor Value Calculated 05/30/2024 03:07 -36% Admissions (365d) 0 [facility] READMISSION RISK Model -18% Admissions (90d) 0 13% Observations (365d) 1 10% Facility [facility] -9% Discharge Disposition HOME -9% ED visits (365d) 0 -8% Albumin (Avg) N/A -8% Diagnosis Count 8 -6% RDW (Max) 12.8 -6% Macey Mcguire 4 Time of Care: 32 Minutes SIGNATURE: SANIYA Saha PAGER/CONTACT #: Primary service DATE: May 30, 2024 TIME: 2:07 PM CBC PNL BLD AUTO Collected: 05/30/2024 4:31 AM Statu s: F Source: [facility] Order Comment: Specimen Type : BLOOD SPECIMEN Ordering Facility: [facility] Address: [address] [place], [place] [address] [address] TYPE CODE TESTS RESULT OUT OF RANGE REFERENCE UNITS LAB 6690-2(LOINC) WBC # Bld Auto 8.56 3.70-11.00 k/uL LAB 789-8(LOINC) RBC # Bld Auto 4.38 4.20-6.00 m/ uL LAB 718-7(LOINC) Hgb Bld-mCnc 14.2 13.0-17.0 g/dL LAB 4544-3(LOINC) Hct VFr Bld Auto 40.9 39.0-51.0 % LAB 787-2(LOINC) MCV RBC Auto 93.4 80.0-100.0 fL LAB 785-6(LOINC) MCH RBC Qn Auto 32.4 26.0-34.0 pg LAB 786-4(LOINC) MCHC RBC Auto-mCnc 34.7 30.5-36.0 g/dL LAB 12549-0([facility]) RDW RBC-Rto 12.2 11.5-15.0 % LAB 777-3(INC) Platelet # Bld Auto 263 150-400 k/uL LAB 59584-0([facility]) PMV Bld Auto 9.4 9.0-12.7 fL LAB 771-6([facility]) nRBC # Bld Auto <0.01 <0.01 k/uL Performed By: #### 69423-5 # ### [facility] CLIA [id number] [address] [place] [address] [place] BAS METAB 2000 PNL SERPL Collected: 4:31 AM Status: F Source: [facility] Order Comment: Specimen Type : BLOOD SPECIMEN Ordering Facility: [facility] Address: [address] [place] [address] TYPE CODE TESTS RESULT OUT OF RANGE REFERENCE UNITS LAB 2345-7([facility]) Glucose SerPl-mCnc 99 70-100 mg/dL Result Comment: The [place] [employer] (ADA) provides guidance for cutoff values for fasting glucose and random glucose. The ADA defines fasting as no caloric intake for at least 8 hours. Fasting plasma glucose results between 100 to 125 mg/dL indicate increased risk for diabetes (prediabetes). Fasting plasma glucose results greater than or equal to 126 mg/dL meet the criteria for diagnosis of diabetes. In the absence of unequivocal hyperglycemia, results should be confirmed by repeat testing. In a patient with classic symptoms of hyperglycemia or hyperglycemic crisis, random plasma glucose results greater than or equal to 200 mg/dL meet the criteria for diagnosis of diabetes. Reference: Standards of Medical Care in Diabetes 2016, [place] [employer]. Diabetes Care. 2016.39(Suppl 1). Results may be falsely elevated after the administration of Sulfapyridine. Results may be falsely depressed after the administration of Sulfasalazine. LAB 3094-0(LOINC) BUN SerPl-mCnc 16 7-26 mg/ dL LAB 2160-0(LOINC) Creat SerPl-mCnc 0.78 0.50-1.40 mg/dL Result Comment: Patients rec eiving either N-Acetylcysteine (NAC) or Metamizole prior to venipuncture, may have falsely depressed results. LAB 2951-2(LOINC) Sodium SerPl-sCnc 135 Low 136-145 mmol/L LAB 2823-3(LOINC) Potassium SerPl-sCnc 3.8 3.5-5.1 mmol/L LAB 2075-0(LOINC) Chloride SerPl-sCnc 99 98-107 mmol/L LAB 2027-9(LOINC) CO2 SerPl-sCnc 31 21-32 mmo l/L LAB 83120-4(LOINC) Anion Gap SerPl-sCnc 5 5-16 mmol/L LAB 88188-8(LOINC) Calcium SerPl-mCnc 9.1 8.5-10.5 mg/dL LAB 64642-8(LOINC) Creatinine + eGFR Pnl SerPlBld 94 >=60 mL/min/1. 73m??? Result Comment: Estimated Gl omerular Filtration Rate (eGFR) is calculated using the 2020 CKD-EPI creatinine equation. This equation utilizes serum creatinine, sex, and age as parameters. The creatinine assay has traceable calibration to isotope dilution-mass spectrometry. Refer to KDIGO guidelines for clinical interpretation. In patients with unstable renal function, e.g. those with acute kidney injury, the eGFR may not accurately reflect actual GFR. Performed By: #### 15483-8 # ### [facility] CLIA [id number] [address] [facility] [place] [address] [place] PROGRESS Observed: 05/29/2024 1:36 PM Status: COMPLETED Source: [facility] HNO ID: [id number] Author: JOSH BRADY APRN.DIAMOND Service: Hospital Medicine Author Type: Nurse Practitioner Type: Progress Notes Filed: 05/29/2024 13:51 Note Text: DEPARTMENT OF HOSPITAL MEDICINE PROGRESS NOTE SERVICE DATE: 05/29/2024 SERVICE TIME: 1:36 PM Hospital Medicine/Primary Attending: Santos Dooley MD PRIMARY CARE PHYSICIAN: Esteban Covington DO Readmission: Highest Readmission Risk Score: 10 Subjective INTERVAL HPI: No acute events overnight. Seen and examined at bedside. He reports had some post-op nausea but is resolved now. Denies chest pain, shortness of breath, abdominal pain, nausea, vomiting, fever, chills, hematuria, dysuria. Sign Off: POD#1 cystoscopy with right ureteral stent placement. Urology cleared for discharge with cephalosporin. In discussion with attending, discharge deferred pending urine culture results. Darian Rothman was called and do not have culture results. Current Facility-Administered Medications Medication Dose Route Frequency NaCl 0.9% iv flush bag 20 mL INTRAVENOUS PRN aluminum-magnesium hydroxide-simethicone 200-200-20 mg/5 mL 30 mL 30 mL ORAL DAILY PRN ondansetron 4 mg tab(s) (ZOFRAN) 4 mg ORAL q 6 H PRN Or ondansetron (PF) 4 mg injection (ZOFRAN) 4 mg INTRAVENOUS q 6 H PRN polyethylene glycol 3350 17 g packet 17 g ORAL DAILY PRN acetaminophen 650 mg tab(s) (TYLENOL) 650 mg ORAL q 6 H PRN morphine 2 mg injection 2 mg INTRAVENOUS q 4 H PRN albuterol 2.5 mg /3 mL (0.083 %) 2.5 mg (PROVENTIL) 2.5 mg INHALATION q 4 H PRN cefTRIAXone 1 g in D5W 100 mL Vial-Bag (ROCEPHIN) 1 g INTRAVENOUS q 24 H tiotropium 2.5 mcg - olodaterol 2.5 mcg inhaler (STIOLTO RESPIMAT) 2 Puff INHALATION DAILY Objective PHYSICAL EXAM: BP 111/64 Pulse 56 Temp (Src) 97.7 (Oral) Resp 19 Ht 5' 6.5 (1.69m) Wt 158 lb 11.7 oz (72.0kg) SpO2 92% BMI 25.24 kg/(m2). O2 Therapy: Room Air Physical Exam Performed GENERAL: Alert, no distress, cooperative SKIN: Skin color, texture, turgor normal. No rashes or lesions. LUNGS: Lungs clear to auscultation, Good diaphragmatic excursion CARDIAC: Normal S1 and S2; no rubs, murmurs, or gallops ABDOMEN: Abdomen soft, non-tender, BS normal, No masses or organomegaly EXTREMITIES: Normal exam of the extremities NEURO: Grossly normal cognition, motor function, and cranial nerves III-XII The remainder of the physical exam is noncontributory. Lines, Drains, and Airways Line Duration Peripheral 05/28/24 1338 Right Antecubital 20 Gauge <1 day Reviewed lines and needs to be continued: REASONS: Intravenous antibiotics DATA: Diagnostic tests reviewed for today's visit: Most recent labs Most recent imaging CBC, Coags, BMP, Mg, Phos Recent Labs 05/29/24 0455 WBC 13.54* HB 13.5 HCT 40.3 PLT 258 NA 138 K 4.3 CHLOR 102 CO2 29 BUN 17 CREAT 0.83 GLUC 114* CA 9.0 Assessment/Plan Problem List Renal calculi (POA: Yes) Right ureteral stone (POA: Yes) Leukocytosis (POA: Yes) Prostate cancer (HCC) (POA: Yes) HOSPITAL COURSE: Brina Machado Jr. is a 74 year old male presented with past medical history of prostate cancer requiring radical prostatectomy 2013, BPH, rectal spine surgery, history of tobacco use and COPD , who traveled to [place], just returned 2 weeks ago. Since returning he has had overall malaise, not feeling well that has progressively worsened to where he has barely been able to get out of bed for the past 2 days. He denies fever, chills or night sweats. He has had nausea and vomiting, but no diarrhea or constipation. He has not noticed any dysuria, urgency, hematuria, frequency. During the ER evaluation, he is afebrile with normal vital signs other than mild tachycardia with a heart rate of 109 bpm. Labs show elevated white blood cell count of 22,000 with a left shift 84 neutrophils, infected urine. Slightly low potassium 3.3. Influenza A/B screen NEG. CT is showing renal calculi. While in the ER, IV Rocephin, KCl 20 mill equivalents p.o., IV fluids but will require urology evaluation for renal calculi which is not available at their hospital so transferred to our hospital for the specialty. He underwent cystoscopy with right ureteral stent placement on 05/28. Urology cleared him for discharge with cephalosporin on 05/29. Discharge deferred pending urine culture results as Darian Rothman does not have results after discussion with attending. Principal Problem: 1. Right Renal calculi with acute cystitis -POD#1 cystoscopy with right ureteral stent insertion - Given IV Rocephin inpatient - Urology consult, appreciate recs. Cleared for discharge with cephalosporin. -13<22. Trend CBC in AM. -Urine culture pending. Await culture. -Continue tylenol, has not utilized morphine. -Follow up with Urology outpatient ADDITIONAL PROBLEMS: 2. Hypokalemia (resolved) - Patient received KCl at outside ER 20 mill equivalents p.o. - K 4.3 --Trend BMP 3. COPD - Continue home meds: -DuoNeb -Stiolto daily -Albuterol as needed High risk medications reviewed for toxicity? Yes Personally discussed plan with consultants? No Reviewed imaging/tests? Yes Tests Pending: CBC, BMP Anticipated Discharge Order Placed: Yes Anticipated Discharge Date: 05/30/24 Follow-up appointment Order Placed: Yes Disposition: Home Lines: PIV REASONS: Intravenous antibiotics Dao: None Diet: Orders Placed This Encounter DIET REGULAR Standing Status: Standing Number of Occurrences: 1 VTE Prophylaxis: VTE prophylaxis appropriate 05/28/24 0945 activity - mobilize patient (nj,vt) Code Status: Code Status: Full Code Plan of care discussed with Provider, RN, Patient and Attending of Record Plan communicated to: N/A Disclaimer This dictation was created using voice recognition software. Phonetic and/or minor grammatical errors may exist. Some elements copied from my service's note 05/28/24, including the physical exam completed in entirety today, have been updated where appropriate. All reflect current medical decision making from today, May 29, 2024. SIGNATURE: Josh Brady APRN.CNP PATIENT NAME: Brina Machado Jr. DATE: May 29, 2024 TIME: 1:36 PM CASE MANAGEM Observed: 05/29/2024 12:59 PM Status: COMPLETED Source: [facility] HNO ID: [id number] Author: TOLIN, KADE, RN Service: Care Management Author Type: Registered Nurse Type: Care Mgt Progress Note Filed: 05/30/2024 14:24 Note Text: CARE MANAGEMENT DISCHARGE NOTE SERVICE DATE: May 29, 2024 SERVICE TIME: 1259 Admission Date: 05/28/2024 LOS: 0 days Discharge Arrangement Discharge Arrangement: Home with Self Care Services Arranged Provider Name: Dr. Covington Phone: [phone] Caregiver Assessment Caregiver is ready, willing and able to meet the patient's needs as recommended by the inter-professional team: No Caregiver needed Transportation Arrangements Transportation Arrangements: Car Handoff Communication: Handoff to: Primary Care Physician Primary Care Physician Name/Phone: Dr. Covington - summary of care Additional Information: Pt to be discharged to home with via private vehicle. No needs noted. Case closed. 05/30/24 1421 - Pt not discharged yesterday d/t waiting for urine culture from [facility]. Plan for d/c today. SIGNATURE: Kade Richardson RN PATIENT NAME: Brina Machado Jr. DATE: May 29, 2024 TIME: 12:59 PM CONSULT PROG Observed: 05/29/2024 9:06 AM Status: COMPLETED [facility] [id number] Author: RADHA READ MD Service: Urology Author Type: Nurse Practitioner Type: Consult Progress Note Filed: 05/29/2024 12:10 Note Text: Attestation signed by Radha Read MD at 05/29/2024 12:10 PM Staff Urologist Note I have personally performed a [id number] assessment of the patient and have reviewed the INDER note. I performed a substantive portion of the visit including all aspects of the following. My norman finding include: ASSESSMENT and PLAN: Right ureteral stone Assessment AND Plan: Right 9 mm distal ureteral stone. POD#1 cystoscopy and stent insertion. Plan cystoscopy, right ureteroscopy with laser lithotripsy and possible ureteral stent removal as outpatient. Office will call for scheduling. Discussed ureteroscopic treatment of stones. Discussed the procedure details along with success and failure rates. Discussed the risks, benefits, and alternatives. The risks including but not limited to: pain, infection, bleeding, need for subsequent procedures, risk of ureteral stenting, risk of injury to the urethra, bladder, ureter or kidney, risk of sepsis, risks of anesthesia, risk of , risks of recurrent or residual disease. Leukocytosis Assessment AND Plan: Cultures pending. Continue Rocephin. Okay to transition to oral cephalosporin Prostate cancer (HCC) Assessment AND Plan: Resume PSA surveillance as outpatient FOLLOW UP: Thank you for this consultation. My office will call patient to schedule their follow up. Please call with questions. MEDICAL DECISION MAKING TIME: I spent 37 minutes on the patient's care, including review of the chart, seeing the patient, answering questions, and documenting in the medical record. SIGNATURE: Radha Read MD UROLOGY STAFF PHYSICIAN DATE: May 29, 2024 PATIENT NAME: Brina Machado Jr. TIME: 12:07 PM [facility]ICAL [facility] UROLOGY CONSULT PROGRESS NOTE PATIENT: Brina Machado Jr. (74 year old) PCP: No primary care provider on file. ASSESSMENT/PLAN: Active Hospital Problems Diagnosis Date Noted Renal calculi 05/28/2024 Right ureteral stone 05/28/2024 Leukocytosis 05/28/2024 Prostate cancer (HCC) 05/28/2024 Assessment AND Plan Right ureteral stone POD # 1, RUSI Leukocytosis improved 13.54 Creatinine stable. Will need definitive stone treatment as outpatient. Follow-up order has been entered August d/c from urology perspective with PO antibiotics on discharge. Leukocytosis Significantly improved-13 No overnight fever, chills, or night sweats. D/c on PO antibiotics. Prostate cancer (HCC) Hx of [place] 4+3 equal 7 prostate cancer. Previously seen by Dr. Gunn. Last seen in 2016.Previous pathology demonstrated negative lymph nodes however established extraprostatic extension was identified. Margins were negative. Does not appear to have a recent PSA. Would recommend follow-up as outpatient. PSA (ng/mL) Date Value 02/18/2016 <0.03 08/06/2015 <0.03 08/21/2014 <0.03 02/21/2014 <0.03 INTERVAL HPI: No overnight events. Voiding without difficulty. Slight nausea this morning, but overall feeling much better. No fever, chills, or night sweats. MEDICATIONS: Current Facility-Administered Medications Medication Dose Route Frequency Provider Last Rate Last Admin NaCl 0.9% iv flush bag 20 mL INTRAVENOUS PRN Radha Read MD aluminum-magnesium hydroxide-simethicone 200-200-20 mg/5 mL 30 mL 30 mL ORAL DAILY PRN Radha Read MD ondansetron 4 mg tab(s) (ZOFRAN) 4 mg ORAL q 6 H PRN Radha Read MD Or ondansetron (PF) 4 mg injection (ZOFRAN) 4 mg INTRAVENOUS q 6 H PRRadha Kwan MD 4 mg at 05/29/24 0055 polyethylene glycol 3350 17 g packet 17 g ORAL DAILY PRN Radha Read MD acetaminophen 650 mg tab(s) (TYLENOL) 650 mg ORAL q 6 H PRRadha Kwan MD morphine 2 mg injection 2 mg INTRAVENOUS q 4 H PRRadha Kwan MD albuterol 2.5 mg /3 mL (0.083 %) 2.5 mg (PROVENTIL) 2.5 mg INHALATION q 4 H PRRadha Kwan MD cefTRIAXone 1 g in D5W 100 mL Vial-Bag (ROCEPHIN) 1 g INTRAVENOUS q 24 H Radha Read MD Stopped at 05/29/24 0821 tiotropium 2.5 mcg - olodaterol 2.5 mcg inhaler (STIOLTO RESPIMAT) 2 Puff INHALATION DAILY Radha Read MD 2 Puff at 05/29/24 0808 PHYSICAL EXAMINATION: BP 140/72 Pulse 60 Temp 37.4 ?C (99.4 ?F) (Oral) Resp 20 Ht 168.9 cm (5' 6.5) Wt 72 kg (158 lb 11.7 oz) SpO2 96% BMI 25.24 kg/m? Constitutional: In no acute distress. Well appearing. Genitourinary: voiding without difficulty, no CVA tenderness DATA: Imaging: KUB - XR ABDOMEN 1V SUPINE Result Date: 05/28/2024 IMPRESSION: Limited study. No calculi identified. Back Winder: PSCB Transcribe Date/Time: May 28 2024 11:33A Dictated by : MARLON CHUA MD This examination was interpreted and the report reviewed and electronically signed by: MARLON CHUA MD on May 28 2024 11:38AM EST Laboratory: Hemoglobin (g/dL) Date Value 05/29/2024 13.5 08/06/2015 15.3 Hematocrit (%) Date Value 05/29/2024 40.3 08/06/2015 45.1 WBC (k/uL) Date Value 05/29/2024 13.54 08/06/2015 6.90 Glucose (mg/dL) Date Value 05/29/2024 114 08/06/2015 114 Potassium (mmol/L) Date Value 05/29/2024 4.3 08/06/2015 4.7 Sodium (mmol/L) Date Value 05/29/2024 138 08/06/2015 139 Chloride (mmol/L) Date Value 05/29/2024 102 08/06/2015 102 CO2 (mmol/L) Date Value 05/29/2024 29 08/06/2015 28 Creatinine (mg/dL) Date Value 05/29/2024 0.83 08/06/2015 0.81 BUN (mg/dL) Date Value 05/29/2024 17 08/06/2015 14 Anion Gap (mmol/L) Date Value 05/29/2024 7 08/06/2015 9 Calcium (mg/dL) Date Value 08/06/2015 9.0 Calcium, Total (mg/dL) Date Value 05/29/2024 9.0 Specific Falkner, Ur (no units) Date Value 02/19/2016 1.013 Glucose, Urine (mg/dL) Date Value 02/19/2016 Negative Bilirubin, Urine (no units) Date Value 02/19/2016 Negative Ketones, Urine (no units) Date Value 02/19/2016 Negative Hemoglobin/Blood,Ur ( ) Date Value 02/19/2016 Negative Protein, Urine (mg/dL) Date Value 02/19/2016 Negative WBC, Urine (/HPF) Date Value 05/11/2013 0-5 PSA (ng/mL) Date Value 02/18/2016 <0.03 Cultures: No data to display Susceptibility Tests - Past 1 Year No results found for the last 365 days. TIME: I spent 20 minutes on the patient's care, including review of the chart, seeing the patient, answering questions, and documenting in the medical record. Chun Cadet APRN.[facility] Urology Nurse Practitioner [phone] SERVICE DATE: May 29, 2024 SERVICE TIME: 9:09 AM CASE MGT INMINERVA LIZ Observed: 05/29/2024 8:50 AM Status: COMPLETED Source: [facility] ID: [id number] Author: KADE RICHARDSON RN Service: Care Management Author Type: Registered Nurse Type: Care Mgt Initial Assessment Filed: 05/29/2024 10:19 Note Text: CARE MANAGEMENT: ASSESSMENT AND DISCHARGE PLAN SERVICE DATE: May 29, 2024 SERVICE TIME: 0850 PCP: No primary care provider on file. Primary Contact: Extended Emergency Contact Information Primary Emergency Contact: Maira Nathan Address: [address] [address] Relation: Spouse Secondary Emergency Contact: May Caba Mobile Relation: Friend Admission Status: Observation Insurance Provider: MEDICARE A AND B Discharge Planning requested by: Per Department Practice Potential Transition Plans Home Advance Directives Current Advance Directive: None Coremaker Apprentice Attempted to Assist with AD Completion: Yes Action: Patient Unwilling Current Living Arrangements and Support Lives with: Spouse/significant other Type of Residence: Private Residence (House) Does the patient have to climb stairs at home?: Yes, stairs outside the home, stairs within the home Support: Friends/neighbors, Spouse/significant other How do you manage to accomplish the following: Independent: Ambulation, Bathe/Shower, Dress, Meals/Meal Prep, Going to the bathroom, Medication Management, Transportation to appointments/community Current Services/Equipment Current Post-Acute Service(s): Oxygen, DME Current DME Type: Nebulizer Discharge Planning Patient Goal(s): Be able to go home, General wellness [place] of Choice Explained: Are you interested in bedside delivery of your medications? No Discharge Planning Participant(s): Patient Patient/Family Comments: Caregiver Assessment: Caregiver is ready, willing and able to meet the patient's needs as recommended by the inter-professional team: No Caregiver needed Transport at Discharge: Transportation Arrangements: Car Needs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 22/1.05, GFR > 60, Ca 9.7 HEPATIC: Lipase 20 CARDIAC: Trop I 6.8 UA: 1.010/6.5/ Ketones 15, + hgb, RBC 20-25, + Valerie Est, Nit: NEG, 1+ Bacteria SIGNATURE: Alla Oconnor MD DATE: May 28, 2024 TIME: 10:12 AM CONSULT Observed: 05/28/2024 9:41 AM Status: COMPLETED Source: [facility] HNO ID: [id number] Author: RADHA READ MD Service: Urology Author Type: Nurse Practitioner Type: Consults Filed: 05/28/2024 13:49 Note Text: Attestation signed by Radha Read MD at 05/28/2024 1:49 PM Staff Urologist Note I have personally performed a yaze-az-[id number] assessment of the patient and have reviewed the INDER note. I performed a substantive portion of the visit including all aspects of the following. My norman finding include: ASSESSMENT and PLAN: Right ureteral calculus. 9 mm obstructing. Associated infection, possible UTI. Discussed stones and treatment options. Plan cystoscopy with right ureteral stent insertion today. We discussed the planned procedure. Risks, benefits, and alternatives of the procedure were discussed. Patient acknowledges understanding and consents to proceed. Patient will then need outpatient ureteroscopy for stone treatment UTI. Possible. Leukocytosis. Send urine for culture Prostate cancer. History of prostatectomy with Dr. Gunn 2013. No PSA follow up since 2015. Will update PSA and resume surveillance as outpatient. Please note the significant and separately identifiable evaluation and management service performed on the same day as the separately-documented minor procedure. FOLLOW UP: Thank you for this consultation. Will follow while in hospital. MEDICAL DECISION MAKING TIME: I spent 60-79 minutes (moderate) on the patient's care, including review of the chart, seeing the patient, answering questions, and documenting in the medical record. SIGNATURE: Radha Read MD UROLOGY STAFF PHYSICIAN DATE: May 28, 2024 PATIENT NAME: Brina Ta Mc Lito Christine TIME: 1:46 PM [facility] UROLOGY INITIAL CONSULT NOTE PATIENT: Brina Ta Guillaume Morse Jr. (74 year old) PCP: No primary care provider on file. REASON FOR CONSULT: right ureteral stone REQUESTING PHYSICIAN: Dr. Maza Assessment AND Plan Right ureteral stone Imaging reviewed with patient which demonstrated 9mm right ureteral stone. Patient denies history of stones previous stones. Patient reports has not passed stone. UA demonstrated 6-10 WBC, 20-25 RBC, 1+ bacteria Patient reported urinary symptoms including frequency, urgency. Discussed with patient the likelyhood of stone passage and discussed stone management options including continuing trail passage of stone w/ flomax or proceeding to surgical intervention. As leukocytosis, ? Infection, and pain would recommend proceeding to ureteral stent insertion. Remain NPO and plan for right ureteral stent later today. Will need definitive stone treatment as outpatient. Was given 1 dose of IV rocephin pending cx finalization. I reviewed with the patient the procedure, procedure specific complication profile, expected post-operative course, post-operative care, procedure and anesthetic risk, procedure benefits, and alternatives. The patient acknowledges understanding. All questions were answered. Leukocytosis Wbc-22.4 Likely 2/2 infection, stone. Continue to monitor. Urine cx ordered. Given 1 dose of IV rocephin 05/27 at 11p Prostate cancer (HCC) Hx of Aysha 4+3 equal 7 prostate cancer. Previously seen by Dr. Gunn. Last seen in 2015.Previous pathology demonstrated negative lymph nodes however established extraprostatic extension was identified. Margins were negative. Does not appear to have a recent PSA. Would recommend follow-up as outpatient. PSA (ng/mL) Date Value 02/18/2016 <0.03 08/06/2015 <0.03 08/21/2014 <0.03 02/21/2014 <0.03 HISTORY OF PRESENT ILLNESS: Brina Machado Jr. is a 74 year old male with a PMH significant for history of prostate cancer. Patient presented to primary hospital for abdominal pain over the past couple days with associated nausea and vomiting. Evaluation in ER demonstrated white blood cells-22.4, hemoglobin-16.9, creatinine 1.05 (preserved) UA 6-10 WBCs, 20-25 RBCs, 1+ bacteria. CT demonstrated 9 mm right ureteral stone with associated hydronephrosis, questionable pyelonephritis.Previously by Dr. Gunn. History of prostate cancer status post robotic prostatectomy with pelvic lymph node dissection 05/2013. [place] 4+3 equal 7.. No follow-up since. He reports vague lower abdominal pain. Has not seen stone pass. Denies any fever, chills, night sweats. Reports he has had his PSA followed up with his PCP and did have a slight elevation however unsure what it was. He reports no gross hematuria. REVIEW OF SYSTEMS: Noncontributory ALLERGIES: ALLERGIES No Known Allergies MEDICATIONS: No current facility-administered medications for this encounter. PAST HISTORY: PAST MEDICAL HISTORY Diagnosis Date Prostate cancer (HCC) 03/2013 PAST SURGICAL HISTORY Procedure Laterality Date PAST SURGICAL HISTORY OF 2005 back surgery PAST SURGICAL HISTORY OF 1997 neck and back surgery PAST SURGICAL HISTORY OF 1982 repair of fracture and torn ligament right leg TOTAL HIP REPLACEMENT 03/21/2013 right FAMILY HISTORY Problem Relation Age of Onset Cancer Father prostate Social History Tobacco Use Smoking status: Every Day Current packs/day: 1.50 Types: Cigarettes Smokeless tobacco: Current Types: Snuff PHYSICAL EXAMINATION: There were no vitals taken for this visit. Constitutional: In no acute distress. Well appearing. Genitourinary: voiding without difficulty, slight R CVA tenderness DATA: Imaging: CT abd/pelvis - [facility]KS[facility]- 05/08/24- 1. Small pericardial effusion 2. Small hepatic cyst 3. Fixation of the lumbar spine 4. History of prostatectomy 5. The right renal collecting system with enhancement of the right ureter 6. 9 mm stone in the right mid ureter with associated partial right renal obstruction 7. Mild delayed and heterogeneous nephrogram on the right side 8. Possible contribution from right side UTI 9. mild stranding noted around the right kidney, possible contribution from right sided pyelonephritis, heterogeneous enhancement pattern to the right kidney. 10. no acute process seen involving left kidney. Laboratory: Hemoglobin (g/dL) Date Value 08/06/2015 15.3 Hematocrit (%) Date Value 08/06/2015 45.1 WBC (k/uL) Date Value 08/06/2015 6.90 Glucose (mg/dL) Date Value 08/06/2015 114 Potassium (mmol/L) Date Value 08/06/2015 4.7 Sodium (mmol/L) Date Value 08/06/2015 139 Chloride (mmol/L) Date Value 08/06/2015 102 CO2 (mmol/L) Date Value 08/06/2015 28 Creatinine (mg/dL) Date Value 08/06/2015 0.81 BUN (mg/dL) Date Value 08/06/2015 14 Anion Gap (mmol/L) Date Value 08/06/2015 9 Calcium (mg/dL) Date Value 08/06/2015 9.0 Specific Falkner, Ur (no units) Date Value 02/19/2016 1.013 Glucose, Urine (mg/dL) Date Value 02/19/2016 Negative Bilirubin, Urine (no units) Date Value 02/19/2016 Negative Ketones, Urine (no units) Date Value 02/19/2016 Negative Hemoglobin/Blood,Ur ( ) Date Value 02/19/2016 Negative Protein, Urine (mg/dL) Date Value 02/19/2016 Negative WBC, Urine (/HPF) Date Value 05/11/2013 0-5 PSA (ng/mL) Date Value 02/18/2016 <0.03 Cultures: No data to display Susceptibility Tests - Past 1 Year No results found for the last 365 days. MEDICAL DECISION MAKING PROBLEM(S): 1, new problem requiring additional work up that carries a high risk of morbidity if untreated (moderate) DATA: Category 1 Review of test result(s): I personally reviewed the following test results: cbc, bmp, ua, CT abd/pelvis Ordering of test(s): I ordered the following tests: n/a Review of prior external note: yes Independent historian:yes Category 2 Independent interpretation of test: I personally reviewed the following imaging: ct abd/pelvis Category 3 Discussion of management or test interpretation: RISK: Moderate (i.e. prescription drug management; minor surgery with patient or procedure risk factors; elective major surgery without patient or procedure risk factors; management limited by social determinants of health) TIME: I spent 45 minutes on the patient's care, including review of the chart, seeing the patient, answering questions, and documenting in the medical record. Chun Cadet APRN.[facility] Urology Nurse Practitioner [phone] SERVICE DATE: May 28, 2024 SERVICE TIME: 9:41 AM NURSING PROG Observed: 05/28/2024 9:34 AM Status: COMPLETED Source: [facility] HNO ID: [id number] Author: SAMMIE GARCÍA RN Service: Nursing Author Type: Registered Nurse Type: Nursing Progress Note Filed: 05/28/2024 09:35 Note Text: Patient arrived via EMS from [facility]. Patient is ambulatory to his bed- rates pain 2/10 at this time. Asking for something to drink- this nurse advised that orders will have to be checked in case there would be a procedure/testing that requires him to be NPO URINE CULTURE [CCL] Observed: 05/28/2024 4:30 AM Status: F Source: [facility] URCUL See Results Below See Below CULTURE, URINE NORMAL UROGENITAL ELOY <10,000 CFU/ml Normal urogenital eloy SOURCE: Urine (Nonspecific) [place] [address] Oswaldo Bowman III, M.D. [id number] SEND TO NO Performed By: #### [id number] ## ## [facility],[address] [place] [id number] URINALYSIS Collected: 4:30 AM Status: F Source: [facility] TYPE CODE TESTS RESULT OUT OF RANGE REFERENCE UNITS LAB URINALYSIS(JAMES NC) URINALYSIS Result Comment: URINALYSIS LAB Specimen Type(LOINC) Specimen Type R LAB Color(LOINC) Color yellow NORMAL: YELLOW LAB Clarity(LOINC) Clarity sl.cloudy GAYATRI L: CLEAR LAB ph(LOINC) ph 6.5 NORMAL: 5.0-8.0 LAB Protein(LOINC) Protein 30 Abnormal GAYATRI L: NEGATIVE LAB Glucose(LOINC) Glucose NORM GAYATRI L: NORMAL LAB Ketone(LOINC) Ketone 15 Abnormal NORMAL : NEGATIVE LAB Bilirubin(LOIN C) Bilirubin NEG NORMAL: NEGATIVE LAB Blood(LOINC) Blood 150 Abnormal NORMAL: NEGATIVE LAB Urobilinog(JAMES NC) Urobilinog NORM NORMAL: NORMAL LAB Sp Falkner(LOINC) Sp Falkner 1.010 NORMAL: 1.010-1.030 LAB Nitrite(LOINC) Nitrite NEG GAYATRI L: NEGATIVE LAB Leukocytes(JAMES NC) Leukocytes 25 Abnormal NORMAL: NEGATIVE LAB Microscopic(LO INC) Microscopic SEE BELOW Result Comment: MICROSCOPIC LAB Wbc(LOINC) Wbc 6-10 0-5/hpf LAB Rbc(LOINC) Rbc 20-25 0-3/hpf LAB Casts(LOINC) Casts NONE LAB Crystals(LOINC ) Crystals NONE LAB Amorphous(LOIN C) Amorphous NONE LAB Bacteria(LOINC ) Bacteria 1+ LAB Epi Cells(LOINC) Epi Cells NONE LAB Mucous(LOINC) Mucous NONE LAB Yeast(LOINC) Yeast NONE Performed By: #### [id number] ## ## [facility],[address] [place] [address] BACTERIA UR CULT Observed: 05/28/2024 4:30 AM Status: F Source: [facility] ORGANISM ID: 1 <10,000 CFU/ml Normal urogenital eloy Performed By: #### [id number] ### # [facility] CLIA [id number] [address] [place] [address] [facility] CT ABDOMEN/PELVIS W Observed: 05/28/2024 12:31 AM Status: F Source: [address] [address] Patient: BRINA NATHAN JR Phone#: : [phone] Age: 74 Gender: M Pt. Type: ER Account: [id number] Location: 2 Ordering: DR. GREGORY BROWNE Exam Date: 05/28/2024/0:12 Family Phys: ESTEBAN COVINGTON Charge Code: [id number] Physician: Duval Order #: [id number] Dose#: 10.8 PROCEDURE: CT ABDOMEN/PELVIS WITH CONTRAST COMPARISON: None. INDICATIONS: Abdominal pain. TECHNIQUE: After obtaining the patient's consent, CT images were created with non-ionic intravenous contrast material. All CT scans at this facility use dose modulation, iterative reconstruction, and/or weight based dosing when appropriate to reduce radiation dose to as low as reasonably achievable. IV CONTRAST: Omnipaque 350,80ml TOTAL DOSE: 10.8 CTDIvol(mGy) FINDINGS: LIVER: Numerous low-attenuation lesions throughout the liver some of which are consistent with cysts, the others are too small to characterize. BILIARY: Gallbladder is present. PANCREAS: Pancreatic atrophy SPLEEN: Normal. No enlargement or focal lesion. Splenule at the lower pole of the spleen. KIDNEYS: Area of decreased enhancement in the right kidney, consistent with pyelonephritis. There is right hydronephrosis and hydroureter secondary to two adjacent obstructing stones at the right distal ureter. The stones measure 0.6 cm and 0.8 cm, series 5, image 31 and series 2, image 54. There is enhancement of the dilated ureter wall. There is mild right perinephric stranding. Left kidney enhances and excretes contrast unremarkably. No left hydronephrosis. ADRENALS: Normal. No mass or enlargement. AORTA/VASCULAR: No aortic aneurysm. There are atherosclerotic calcifications of the aorta and branch vessels. RETROPERITONEUM: Normal. No mass or adenopathy. Continued Report - Page 2 of 2 Patient: BRINA NATHAN JR Phone#: : [phone] Age: 74 Gender: M Pt. Type: ER Account: [id number] Location: 052 Ordering: DR. GREGORY BROWNE Exam Date: 05/28/2024/0:12 Family Phys: ESTEBAN COVINGTON Charge Code: [id number] Physician: Duval Order #: [id number] Dose#: 10.8 BOWEL/MESENTERY: No bowel obstruction or dilatation. No significant stool burden. Diverticulosis of the distal descending colon. Appendix is unremarkable in size. ABDOMINAL WALL: Normal. No mass or hernia. URINARY BLADDER: Normal. No visible focal wall thickening, lesion, or calculus. PELVIC NODES: Normal. No adenopathy. PELVIC ORGANS: Prostate is absent. BONES: Right hip arthroplasty with femoral and acetabular hardware components. Posterior spinal fusion hardware at L2-3, with pedicle screws and rods. LUNG BASES: Small pericardial effusion. OTHER: Negative. CONCLUSION: 1. Right distal ureter obstructing stones resulting in moderate hydronephrosis and hydroureter. 2. Right pyelonephritis Dictated by: Ya Felix MD on 05/28/2024 at 9:30 Approved by: Ya Felix MD on 05/28/2024 at 10:35 CNPN Observed: 05/28/2024 12:00 AM Status: COMPLETED Source: [facility] Telephone (MRPRAD) BRINA MACHADO JR. ([id number]) 1950 M Date Time Provider Department 2/24/25 RADHA READ MRPRAD During your visit today, we recorded the following information about you: Radha Read MD 05/28/2024 2:41 PM Signed Surgery: Cystoscopy and pyelograms, right ureteroscopy with laser lithotripsy, possible ureteral stent removal Duration: 1 hour(s) Surgeon: Radha Read MD Location: [facility] Anesthesia: General Fluoroscopy: Yes Special equipment: Thulium (soltive) laser PACC visit: Yes Presurgical testing: CBC, BMP, Urinalysis and urine culture one week prior to surgery Clearance: No Bowel prep: No Blood thinners to stop: yes Kaylan Alexander 05/30/2024 10:07 AM Signed Patient is currently inpatient. Thank you, Kaylan Magaña 05/31/2024 10:54 AM Signed Patient is aware of date, details and prep. Thank you, Kaylan Hillman Allergies As of Date: 05/28/2024 (No Known Allergies) Date Reviewed: 05/28/2024 Reviewed by: Arianna Day I RN - Fully Assessed Reason for Visit: Orders [681] Primary Visit Diagnosis:Right ureteral stone [N20.1] Order(s):COMPLETE BLOOD COUNT [SQCBC] Order #: [id number] FUTURE BASIC METABOLIC PANEL [SQBMP] Order #: [id number] FUTURE URINALYSIS (WITH MICROSCOPIC) WITH CULTURE IF INDICATED [SQUACII] Order #: [id number] FUTURE Prescriptions as of 05/31/2024 - cephALEXin (KEFLEX) 500 mg capsule Take 1 capsule by mouth four times daily for 7 days. - oxyCODONE IR (ROXICODONE) 5 mg immediate release tablet Take 1 tablet by mouth every 8 hours as needed for pain for up to 5 days. - ipratropium-albuterol (DUONEB) 0.5 mg-3 mg(2.5 mg base)/3 mL nebu Inhale 3 mL as instructed every 4 hours as needed for wheezing/shortness of breath. - tiotropium Br/olodaterol HCl (STIOLTO RESPIMAT INHALATION) Inhale 2 Puffs as instructed once daily. Problem List As Of Date 05/28/2024 Noted Resolved BPH W URINARY OBS/LUTS [N40.1, N13.8] 01/17/2007 BLADDER NECK OBSTRUCTION [N32.0] 01/17/2007 Family history of prostate cancer [Z80.42] 01/22/2013 Scrotal mass [N50.89] 01/22/2013 Spermatocele [N43.40] 02/21/2013 Malignant neoplasm of prostate [C61] 04/18/2013 Right ureteral stone [N20.1] 05/28/2024 Leukocytosis [D72.829] 05/28/2024 Renal calculi [N20.0] 05/28/2024 Prostate cancer (HCC) [C61] 05/28/2024 Encounter Status:Closed by RADHA READ on 05/28/24 INFLUENZA VIRUS RAPID A/B Observed: 05/06 11:27 PM Status: F Source: [facility] INFLUENZA A NEGATIVE INFLUENZA B NEGATIVE INTERNAL NEG QC PASS INTERNAL POS QC PASS EXTERNAL QC DONE? YES SEND TO IC? [facility] NEGATIVE TEST RESULT DOES NOT EXCLUDE INFECTION WITH INFLUENZA A OR B. THEREFORE, THE RESULTS OBTAINED FROM THIS FLU TEST SHOULD BE USED IN CONJUCTION WITH CLINICAL FINDINGS TO MAKE AN ACCURATE DIAGNOSIS. A POSITIVE RESULT DOES NOT RULE OUT CO-INFECTIONS WITH OTHER PATHOGENS OR IDENTIFY ANY SPECIFIC INFLUENZA A VIRUS SUBTYPE.CO-INFECTION WITH INFLUENZA A AND B IS RARE. IT IS RECOMMENDED THAT DUAL POSITIVE RESULTS BE CONFIRMED BY VIRAL CULTURE OR AN FDA-CLEARED INFLUENZA A AND B MOLECULAR ASSAY. INDIVIDUALS WHO HAVE RECEIVED NASALLY ADMINISTERED INFLUENZA A VACCINE MAY TEST POSITIVE IN COMMERCIALLY AVAILABLE INFLUENZA RAPID DIAGNOSTIC TESTS FOR UP TO THREE DAYS. RESULT CRITICAL? NO Performed By: #### [id number] ## ## [place] [id number] TROPONIN Collected: 11:05 PM Status: F Source: [facility] TYPE CODE TESTS RESULT OUT OF RANGE REFERENCE UNITS LAB HS TROPONIN(LOINC) HS TROPONIN 6.8 0.0 - 76.2 pg/mL Performed By: #### [id number] ## ## [place] [address] CBC + DIFF Collected: 5 11:05 PM Status: F Source: [facility] TYPE CODE TESTS RESULT OUT OF RANGE REFERENCE UNITS LAB CBC + DIFF(LOINC) CBC + DIFF Result Comment: CBC-COMPLETE BLOOD COUNT LAB WBC(LOINC) WBC 22.4 High 4.5 - 10.8 x 10EE3/UL LAB RBC(LOINC) RBC 5.16 4.50 - 6.00 x 10EE6/UL LAB HEMOGLOBIN(JAMES NC) HEMOGLOBIN 16.9 13.0 - 17.5 g/dl LAB HEMATOCRIT(JAMES NC) HEMATOCRIT 48.8 40.0 - 52.0 % LAB MCV(LOINC) MCV 95 81 - 98 fl LAB MCH(LOINC) MCH 33 27 - 33 pg LAB MCHC(LOINC) MCHC 35 32 - 36 X10 3 LAB RDW/CV(LOINC) RDW/CV 13.3 12.0 - 15.6 % LAB PLATELET(LOINC ) PLATELET 324 150 - 450 x10EE3/UL LAB MPV(LOINC) MPV 8.0 6.4 - 10.5 fl Result Comment: AUTOMATED DI FFERENTIAL LAB NEUT %(LOINC) NEUT % 84.7 High 46.0 - 76.0 % LAB LYMPH %(LOINC) LYMPH % 6.5 Low 20.0 - 45.0 % LAB MONOS %(LOINC) MONOS % 8.1 0.0 - 10.0 % LAB EO %(LOINC) EO % 0.6 0.0 - 7.0 % LAB BASO %(LOINC) BASO % 0.2 0.0 - 2.0 % LAB Lymph #(LOINC) Lymph # 1.46 0.80 - 2.80 x10EE 3/UL LAB Neut #(LOINC) Neut # 18.99 High 1.50 - 7.10 x10EE3 /UL LAB Conway #(LOINC) Conway # 1.81 High 0.20 - 1.00 x10EE3 /UL LAB EO #(LOINC) EO # 0.13 0.00 - 0.50 x10EE3/U L LAB Baso #(LOINC) Baso # 0.04 0.00 - 0.10 x10EE3 /UL LAB MANUAL DIFF(LOINC) MANUAL DIFF N/A LAB MORPHOLOGY(JAMES NC) MORPHOLOGY N/A Performed By: #### [id number] ## ## [address] [address] LIPASE Collected: 5 11:05 PM Status: F Source: [facility] TYPE CODE TESTS RESULT OUT OF RANGE REFERENCE UNITS LAB LIPASE(INC) LIPASE 20.0 15.0 - 78.0 U/L Result Comment: *PLEASE NOTE THAT RANGES FOR LIPASE HAVE CHANGED OF 04/01/23 DUE TO AN ASSAY UPDATE BY THE [employer].THE NEW ASSAY RANGE IS 6-250 U/L, WITH A REFERENCE RANGE OF 16-77 U/L. Performed By: #### [id number] ## ## [address] [address] CMP WITH EGFR Collected: 5 11:05 PM Status: F Source: [facility] TYPE CODE TESTS RESULT OUT OF RANGE REFERENCE UNITS LAB CMP with eGFR(LOINC) CMP with eGFR Result Comment: COMPREHENSIV E METABOLIC PANEL LAB SODIUM(LOINC) SODIUM 139 136 - 145 mmol/l LAB POTASSIUM(LOIN C) POTASSIUM 3.3 Low 3.5 - 5.1 mmol/L LAB CHLORIDE(LOINC ) CHLORIDE 97 Low 98 - 107 mmol/L LAB CO2(LOINC) CO2 33.0 High 21.0 - 32.0 mmol/L LAB GLUCOSE(LOINC) GLUCOSE 139 High 74 - 106 mg/dl LAB BUN(LOINC) BUN 22 High 7 - 18 mg/dl LAB CREATININE(JAMES NC) CREATININE 1.05 0.70 - 1.30 mg/dl LAB AST/SGOT(LOINC ) AST/SGOT 14 Low 15 - 37 U/L LAB ALK PHOS(LOINC) ALK PHOS 101 46 - 116 U/L LAB CALCIUM(LOINC) CALCIUM 9.7 8.5 - 10.1 mg/dl LAB TOTAL PROTEIN(LOINC) TOTAL PROTEIN 7.9 6.4 - 8.2 g/dl LAB ALBUMIN(LOINC) ALBUMIN 3.7 3.4 - 5.0 g/dL LAB GLOBULIN(LOINC ) GLOBULIN 4.2 High 1.5 - 3.8 G/DL LAB A/G RATIO(LOINC) A/G RATIO 0.9 0.9 - 1.6 LAB TOTAL BILI(LOINC) TOTAL BILI 1.1 High 0.2 - 1.0 mg/dl LAB B/C RATIO(LOINC) B/C RATIO 21 0 - 30 ratio LAB ALT/SGPT(LOINC ) ALT/SGPT 29 16 - 63 U/L LAB ANION GAP(LOINC) ANION GAP 12 10 - 20 mmol/L LAB AGE(LOINC) AGE 74 years LAB eGFR(LOINC) eGFR >60 60 - 999 ML/MINUT E LAB eGFR(AA)(LOINC ) eGFR(AA) >60 60 - 999 ML/MINUT E Result Comment: ACCORDING TO THE NATIONAL KIDNEY DISEASE EDUCATION PROGRAM(NKDE), A NORMAL eGFR IS A VALUE GREATER THAN OR EQUAL TO 60 ML/MIN/1.73 SQ METERS. CHRONIC KIDNEY DISEASE: <60mL/MIN/1.73 SQ METERS KIDNEY FAILURE: <15mL/MIN/1.73 SQ METERS THIS TEST SHOULD ONLY BE USED FOR PATIENTS 18 YEARS OF AGE AND OLDER. Performed By: #### [id number] ## ## [facility],[address] [place] [address] ED NURSES CLINICAL NOTE Observed: 2024 7:28 PM Status: F Source: [facility] Nurse Narrative [place] [address] [id number] 05/27/2024 Patient: BRINA NATHAN Sex: Male : 1950 Age: 74y Primary Insurance: MEDICARE OUTPATIENT Policy Number: [id number] Subscriber: Other Secondary Insurance: [employer] MEDICARE SUPPLEMEN Policy Number: [id number] Group Number: PLAN G Subscriber: Other Disposition: Transfer to [facility] Disposition Decision Time: 03:27 05/28/2024 Departure Time: 08:23 05/28/2024 TRIAGE Triage time: 19:41 05/27/2024. -- 19:46 05/27/24 TIMMY Irving R.N. ( Pt c/o nausea and vomiting since yesterday. He has felt a bit sick over the past 2 weeks.). Acuity: LEVEL 3. Chief Complaint: NAUSEA and VOMITING. 19:45 05/27/24. This started yesterday. SEPSIS SCREEN: NEGATIVE. SIRS criteria negative: heart rate greater than 90. -- 19:45 05/27/24 TIMMY Irving R.N. 19:45 05/27/24. BP: 127/83 MAP: 98. HR: 109. RR: 16. O2 saturation: 95% Temperature: 97.9 F. Pain level now 8/10. -- 19:45 05/27/24 TIMMY Irving R.N. Measurements: 19:42 05/27/24 Wt: 68.0 kg, Ht/Richie: 66.0 in, BMI: 24.21 -- 19:42 05/27/24 TIMMY Irving R.N. 1 of 5 Nurse Narrative Medications: Stiolto Respimat 2.5 mcg-2.5 mcg/actuation solution for inhalation: 2 puff once a day. -- 19:48 05/27/24 TIMMY Irving R.N. ipratropium 0.5 mg-albuterol 3 mg (2.5 mg base)/3 mL nebulization soln: USE 1 AMPULE IN NEBULIZER EVERY 4 HOURS NEEDED FOR SHORTNESS OF BREATH AND FOR WHEEZING -- 19:48 05/27/24 TIMMY Irving R.N. Allergies: no known drug allergies -- 19:39 05/27/24 TIMMY Irving R.N. Problems: COPD - Chronic Obstructive Pulmonary Disease -- 19:39 05/27/24 Isaiah AldanaN. ADDITIONAL SURGERIES: Hip Surgery -- 19:40 05/27/24 TIMMY Irving R.N. Prostatectomy -- 19:40 05/27/24 Isaiah AldanaN. Back Surgery -- 19:40 05/27/24 TIMMY Irving R.N. History 19:45 05/27/24. SOCIAL HX: Former smoker. Alcohol use; consumes beer occasionally. No drug use. The patient has not traveled outside the [place] Infectious disease exposure: No infectious disease exposure. ABUSE ASSESSMENT: The patient answered yes to the question(s) Do you feel safe in your home? and no to the question(s) Are you afraid to go home?. SELF HARM ASSESSMENT: Self harm assessment was performed. The patient answered no to the question(s) Have you recently felt down, depressed, or hopeless? and Do you have thoughts of harming or killing yourself?. FALL RISK ASSESSMENT: Fall risk assessment completed. No risk factors identified. -- 19:45 05/27/24 TIMMY Irving R.N. 2 of 5 Nurse Narrative Interventions 19:45 05/27/24. Advanced care plan. Patient does not have advanced directive. -- 19:45 05/27/24 TIMMY Irving R.N. PHYSICAL ASSESSMENT 23:11 05/27/24. Ambulatory to room. Patient gowned. GENERAL / NEURO / PSYCH: Alert. Oriented X 4. Appears in no acute distress. ( n/v after drinking alcohol, right lower abd pain). RESPIRATORY: Respirations not labored. Breath sounds within normal limits. CVS: Cardiac rhythm: sinus tachycardia. GI / : The patient has had nausea and diarrhea. Emesis noted. Abdominal tenderness diffusely. SKIN: Skin is warm and dry. -- 23:11 05/27/24 TIMMY Shukla R.N. 23:13 05/27/24. GENERAL / NEURO / PSYCH: ( pt endorses general feeling unwell over past couple weeks, tonight with N/V seeking medical attention, occasional alcohol consumption, (beer)). -- 23:13 05/27/24 TIMMY Shukla R.N. 23:38 05/27/24. BP: 160/79 MAP: 105 mmHg. HR: 89 bpm. -- 00:06 05/28/24 TIMMY Shukla R.N. 23:38 05/27/24. HR: 92 bpm. O2 saturation: 93%. -- 00:06 05/28/24 TIMMY Shukla R.N. 23:53 05/27/24. BP: 138/75 MAP: 99 mmHg. HR: 94 bpm. -- 00:06 05/28/24 TIMMY Shukla R.N. 23:53 05/27/24. HR: 93 bpm. O2 saturation: 97%. -- 00:06 05/28/24 TIMMY Shukla R.N. NURSING PROGRESS NOTES 20:39 05/27/24. Ondansetron (Zofran) ODT PO 4 mg given. Information reviewed with patient. -- 20:39 05/27/24 TIMMY Charles R.N. 23:12 05/27/24. NIBP monitor and pulse oximeter placed on patient. Patient gowned. Head of bed elevated 45 degrees. Two patient identifiers checked. Call light placed in reach. Side rails up x 1. Bed placed in lowest position. Brakes of bed on. Family at bedside. -- 23:12 05/27/24 TIMMY Shukla R.N. 23:17 05/27/24. IV NS 0.9 % 1000 mL started in bag#1 1000 mL at 999 mL/hr via Site# 1. Allergies verified and confirmed 5 rights. Via dial-a-flow. IV patency established. IV site checked: no pain, redness, or swelling. IV flushed thoroughly pre-medication administration. Information reviewed with patient including reason for taking this medication. -- 23:18 05/27/24 TIMMY Shukla R.N. 23:18 05/27/24. Site #1 started via IV in the right antecubital space with a 20g angiocath with aseptic technique and good blood return; 1 attempt. Blood drawn: rainbow set tube(s). Labeled in the presence of the patient. Saline lock flushed with 3 mL saline. (Placed by Felicitas charles.) -- 23:05/27/24 TIMMY Shukla R.N. 23:18 05/27/24. Zofran IVP 4 mg given via Site# 1. Allergies verified and confirmed 5 rights. IV patency established. IV site checked: no pain, redness, or swelling. IV flushed thoroughly pre-medication administration. 3 of 5 Nurse Narrative IVP given by nurse. Information reviewed with patient including reason for taking this medication. Verbalizes understanding. -- 23:20 05/27/24 TIMMY Shukla R.N. 23:05/27/24. Pepcid 20mg/50ml Premix IVPB 20 mg started at 4 mg/hr via Site# 1. Allergies verified and confirmed 5 rights. Via dial-a-flow. IV patency established. IV site checked: no pain, redness, or swelling. IV flushed thoroughly pre-medication administration. Information reviewed with patient including reason for taking this medication. Verbalizes understanding. -- 23:22 05/27/24 Isaiah RayNGunner 23:40 05/27/24. Pepcid 20mg/50ml Premix IVPB: Medication Discontinued. IV infused. Total amount infused: 50 mL. IV patency established. IV site checked: no pain, redness, or swelling. IV flushed thoroughly post-medication administration. -- 23:45 05/27/24 TIMMY Shukla R.N. 23:43 05/27/24. MORPHine IVP 4 mg given via Site# 1. Allergies verified and confirmed 5 rights. IV patency established. IV site checked: no pain, redness, or swelling. IV flushed thoroughly pre-medication administration. IVP given by nurse. Information reviewed with patient including reason for taking this medication. Verbalizes understanding. -- 23:44 05/27/24 TIMMY Shukla R.N. 23:51 05/27/24. Oxygen increased to 1 liters by nasal cannula; (Pt 85% on room air.). -- 23:51 05/27/24 TIMMY Ghotra E.M.T.-P. 00:23 05/28/24. BP: 130/73 MAP: 87 mmHg. HR: 95 bpm. -- 00:52 05/28/24 Isaiah RayN. 00:27 05/28/24. HR: 104 bpm. O2 saturation: 87%. -- 00:52 05/28/24 EST Belkis Groves.N. 00:38 05/28/24. BP: 132/71 MAP: 91 mmHg. HR: 92 bpm. -- 00:52 05/28/24 Isaiah RayNGunner 00:40 05/28/24. IV NS 0.9 %: Medication Discontinued. bag #1 infused. Total amount infused: 1000 mL. IV patency established. IV site checked: no pain, redness, or swelling. IV flushed thoroughly post-medication administration. -- 02:40 05/28/24 Isaiah RayN. 00:42 05/28/24. The patient is calm and resting quietly. Overall patient status is improved- the patient states feels better. GI / : The patient reports abdominal pain is still present but improving (was 8 now 2-3/10). Patient waiting for radiology and CT results. -- 00:52 05/28/24 Belkis Ray.N. 00:50 05/28/24. HR: 89 bpm. O2 saturation: 95%. -- 00:52 05/28/24 EST Belkis Groves.N. 02:22 05/28/24. BP: 118/76 MAP: 93 mmHg. HR: 87 bpm. -- 02:47 05/28/24 EST Isaiah GrovesN. 02:25 05/28/24. HR: 83 bpm. O2 saturation: 94%. -- 02:47 05/28/24 EST Jonathan Shukla R.N. 02:37 05/28/24. BP: 121/71 MAP: 91 mmHg. HR: 84 bpm. -- 02:47 05/28/24 Belkis Ray.N. 02:42 05/28/24. cefTRIAXone (Rocephin) IVPB 1gm/50ml NS 1 g started at 100 mL/hr diluted in sodium chloride IVPB 0.9 % Minibag+ 50 mL via Site# 1. Allergies verified and confirmed 5 rights. Via dial-a-flow. IV patency established. IV site checked: no pain, redness, or swelling. IV flushed thoroughly pre-medication administration. Information reviewed with patient including reason for taking this medication. Verbalizes understanding. -- 02:45 05/28/24 Isaiah RayNGunner 02:45 05/28/24. HR: 95 bpm. O2 saturation: 95%. -- 02:47 05/28/24 Isaiah RayN. 02:47 05/28/24. The patient reports no complaints and the patient is calm and resting quietly. ( pt w/o accepting bed with urology). Patient waiting for transportation. -- 02:47 05/28/24 Isaiah RayN. 02:57 05/28/24. Transfer request (02:55 05/28/2024). Called for a possible transfer. ([facility]). -- 02:57 05/28/24 TIMMY Armstrong 4 of 5 Nurse Narrative 03:17 05/28/24. cefTRIAXone (Rocephin) IVPB 1gm/50ml NS: Medication Discontinued. IV infused. Total amount infused: 50 mL. IV patency established. IV site checked: no pain, redness, or swelling. IV flushed thoroughly post-medication administration. -- 04:47 05/28/24 TIMMY Shukla R.N. 03:25 05/28/24. Transfer request (03:25 05/28/2024). ([facility] called to speak with dr. browne). -- 03:25 05/28/24 TIMMY Armstrong 04:53 05/28/24. Potassium Chloride PO 20 mEq given. Allergies verified and confirmed 5 rights. Information reviewed with patient including reason for taking this medication. Verbalizes understanding. -- 04:55 05/28/24 TIMMY Shukla R.N. 05:28 05/28/24. Transfer request (05:28 05/28/2024). ([facility] Bed # 2- [facility] 277-2 Nurse to Nurse is [phone]). -- 05:38 05/28/24 TIMMY Armstrong 05:38 05/28/24. Transfer request (05:38 05/28/2024). (called [facility] and set up transport to [facility]). -- 05:38 05/28/24 TIMMY Armstrong 07:08 05/28/24. BP: 128/61 MAP: 96 mmHg. HR: 92 bpm. -- 07:35 05/28/24 TIMMY Jimenez R.N. 07:20 05/28/24. Care transferred and report received (Jonathan RN). ( pt resting in bed with eyes closed appears to be in no distress at this time.). -- 07:35 05/28/24 TIMMY Jimenez R.N. 07:30 05/28/24. HR: 100 bpm. O2 saturation: 92%. -- 07:35 05/28/24 TIMMY Jimenez R.N. DISPOSITION / DISCHARGE 07:35 05/28/24. HR: 96 bpm. O2 saturation: 91%. -- 08:29 05/28/24 TIMMY Jimenez R.N. 08:08 05/28/24. BP: 110/56 MAP: 72 mmHg. HR: 93 bpm. -- 08:29 05/28/24 TIMMY Jimenez R.N. Departure time: 08:23 05/28/2024. Condition at departure: improved. Transferred to [facility]. Face Sheet, physician record and nurse record provided to EMS and transfer facility via paper. Transported via stretcher by EMS with IV ([facility]). Report was given to a nurse via a phone call. Report included information regarding patient's treatment and allergies, current vital signs and abnormal labs. Report included treatment information regarding medications given in the ED. No questions were asked. Care was transferred (Kendal PATINO). -- 08:05/28/24 TIMMY Jimenez R.N. 08:24 05/28/24. Site #[address] upon transfer; patent. -- 08:05/28/24 TIMMY Jimenez R.N. (Electronically signed by Efrain Jimenez R.N. 05/28/24 08:31:23 EST) Generated by [facility] 5 of 5 ED PHYSICIAN CLINICAL REPORT Observed: 0 05/27/2024 7:28 PM Status: F Source: [facility] Narrative Physician Clinical Narrative [address] [address] [phone] 05/27/2024 Patient: BRINA NATHAN Sex: Male : 1950 Age: 74y Primary Insurance: MEDICARE OUTPATIENT Policy Number: [id number] Subscriber: Other Secondary Insurance: [employer] MEDICARE SUPPLEMEN Policy Number: [id number] Group Number: PLAN G Subscriber: Other Disposition: Transfer to [facility] Disposition Decision Time: 03:27 05/28/2024 Measurements Wt: 68.0 kg, Ht/Richie: 66.0 in, BMI: 24.21 Initial Vital Sign Measured Time BP MAP HR RR O2Sat ETCO2 Temp Pain GCS RTS 19:45 05/27/2024 127/83 98 109 16 95% 97.9 F 8 Time Seen: 23:02 05/27/2024. Arrived- By private vehicle. Historian- patient. Independent historian- family. HISTORY OF PRESENT ILLNESS Chief Complaint: VOMITING. This started last night 74-year-old male presents to the ED for abdominal pain. He reports that he has had pain diffusely across the abdomen over the past few days. Pain does not radiate to the back. He has had associated nausea and vomiting since last night. Emesis is nonbloody. Reports he has had normal bowel movements. Denies any difficulty with urination or dysuria. No fevers or chills. Tolerating p.o. intake however decreased appetite since last night. He denies prior abdominal surgical history. No prior kidney stones. Takes no daily medications, does have past history of COPD. and is still present. The patient has had nausea and vomiting. No known contact with a sick individual. The illness is described as moderate. 1 of 12 Narrative Similar symptoms previously. None. Recent medical care: Not recently seen/assessed. REVIEW OF SYSTEMS CONSTITUTIONAL: No fever. : No difficulty with urination, dark urine or excessive urination. CVS: No chest pain. SKIN: No skin rash. RESPIRATORY: No cough or difficulty breathing. All other systems reviewed and are negative. PAST HISTORY See nurses notes. COPD - Chronic Obstructive Pulmonary Disease Surgeries: Back Surgery Hip Surgery Prostatectomy Medications: ipratropium 0.5 mg-albuterol 3 mg (2.5 mg base)/3 mL nebulization soln: USE 1 AMPULE IN NEBULIZER EVERY 4 HOURS NEEDED FOR SHORTNESS OF BREATH AND FOR WHEEZING Stiolto Respimat 2.5 mcg-2.5 mcg/actuation solution for inhalation: 2 puff once a day. Allergies: no known drug allergies SOCIAL HISTORY Is a local resident. Resides in a house. Has good social support. ADDITIONAL NOTES The nursing notes have been reviewed. PHYSICAL EXAM 2 of 12 Narrative Vital Signs: Have been reviewed. Appearance: Alert. No acute distress. Eyes: Pupils equal, round and reactive to light. Eyes normal inspection. ENT: Ears normal. Nose normal. Pharynx normal. No pharyngeal erythema. The mucous membranes are not dry. Neck: Normal inspection. Neck supple. CVS: Normal heart rate and rhythm. Heart sounds normal. Pulses normal. Respiratory: No respiratory distress. Painless inspiration. Breath sounds normal. Abdomen: Soft. Mild tenderness diffusely. No guarding or rebound tenderness. No mass. Back: Normal inspection. No CVA tenderness. Skin: Skin warm and dry. Normal skin color. No rash. Normal skin turgor. Extremities: Extremities exhibit normal ROM. No lower extremity edema. Neuro: No alteration in mental status. No motor deficit. No sensory deficit. LABS, X-RAYS, AND EKG 12-LEAD EKG: No acute process. No acute ischemia. Normal sinus rhythm. Normal P waves. Normal QRS complex. Normal axis. Normal ST and T waves and QT. The study has been interpreted contemporaneously by me. The study has been independently viewed by me. The EKG appears to be a good tracing. Interpretation time: 00:02 05/28/2024. Laboratory Tests: CBC + DIFF Final GLORIA: 05/27/2024 23:05:00 EST MsgRcvd: 05/27/2024 23:25 EST Lab Test Result Reference Status Received Comments 05/27/2024 23:25 CBC-COMPLETE CBC + DIFF Final EST BLOOD COUNT 22.4 x 10/UL 05/27/2024 23:25 WBC 4.5 - 10.8 Final Above high normal EST 05/27/2024 23:25 RBC 5.16 x 10/UL 4.50 - 6.00 Final EST 05/27/2024 23:25 HEMOGLOBIN 16.9 g/dl 13.0 - 17.5 Final EST 3 of 12 Narrative Lab Test Result Reference Status Received Comments 05/27/2024 23:25 HEMATOCRIT 48.8 % 40.0 - 52.0 Final EST 05/27/2024 23:25 MCV 95 fl 81 - 98 Final EST 05/27/2024 23:25 MCH 33 pg 27 - 33 Final EST 05/27/2024 23:25 MCHC 35 X10 3 32 - 36 Final EST 05/27/2024 23:25 RDW/CV 13.3 % 12.0 - 15.6 Final EST 05/27/2024 23:25 PLATELET 324 x10/UL 150 - 450 Final EST 05/27/2024 23:25 AUTOMATED MPV 8.0 fl 6.4 - 10.5 Final EST DIFFERENTIAL 84.7 % 05/27/2024 23:25 NEUT % 46.0 - 76.0 Final Above high normal EST 6.5 % 05/27/2024 23:25 LYMPH % 20.0 - 45.0 Final Below low normal EST 05/27/2024 23:25 MONOS % 8.1 % 0.0 - 10.0 Final EST 05/27/2024 23:25 EO % 0.6 % 0.0 - 7.0 Final EST 05/27/2024 23:25 BASO % 0.2 % 0.0 - 2.0 Final EST 05/27/2024 23:25 Lymph # 1.46 x10/UL 0.80 - 2.80 Final EST 4 of 12 Narrative Lab Test Result Reference Status Received Comments 18.99 x10/UL 05/27/2024 23:25 Neut # 1.50 - 7.10 Final Above high normal EST 1.81 x10/UL 05/27/2024 23:25 Conway # 0.20 - 1.00 Final Above high normal EST 05/27/2024 23:25 EO # 0.13 x10/UL 0.00 - 0.50 Final EST 05/27/2024 23:25 Baso # 0.04 x10/UL 0.00 - 0.10 Final EST 05/27/2024 23:25 MANUAL DIFF N/A New Order EST 05/27/2024 23:25 MORPHOLOGY N/A New Order EST CMP with eGFR Final GLORIA: 05/27/2024 23:05:00 EST MsgRcvd: 05/27/2024 23:58 EST Lab Test Result Reference Status Received Comments COMPREHENSIVE 05/27/2024 CMP with eGFR Final METABOLIC 23:58 EST PANEL 05/27/2024 SODIUM 139 mmol/l 136 - 145 Final 23:58 EST 3.3 mmol/L 05/27/2024 POTASSIUM 3.5 - 5.1 Final Below low normal 23:58 EST 97 mmol/L 05/27/2024 CHLORIDE 98 - 107 Final Below low normal 23:58 EST 5 of 12 Narrative Lab Test Result Reference Status Received Comments 33.0 mmol/L 05/27/2024 CO2 Above high 21.0 - 32.0 Final 23:58 EST normal 139 mg/dl 05/27/2024 GLUCOSE Above high 74 - 106 Final 23:58 EST normal 22 mg/dl 05/27/2024 BUN Above high 7 - 18 Final 23:58 EST normal 05/27/2024 CREATININE 1.05 mg/dl 0.70 - 1.30 Final 23:58 EST 14 U/L 05/27/2024 AST/SGOT 15 - 37 Final Below low normal 23:58 EST 05/27/2024 ALK PHOS 101 U/L 46 - 116 Final 23:58 EST 05/27/2024 CALCIUM 9.7 mg/dl 8.5 - 10.1 Final 23:58 EST TOTAL 05/27/2024 7.9 g/dl 6.4 - 8.2 Final PROTEIN 23:58 EST 05/27/2024 ALBUMIN 3.7 g/dL 3.4 - 5.0 Final 23:58 EST 4.2 G/DL 05/27/2024 GLOBULIN Above high 1.5 - 3.8 Final 23:58 EST normal 05/27/2024 A/G RATIO 0.9 0.9 - 1.6 Final 23:58 EST 6 of 12 Narrative Lab Test Result Reference Status Received Comments 1.1 mg/dl 05/27/2024 TOTAL BILI Above high 0.2 - 1.0 Final 23:58 EST normal 05/27/2024 B/C RATIO 21 ratio 0 - 30 Final 23:58 EST 05/27/2024 ALT/SGPT 29 U/L 16 - 63 Final 23:58 EST 05/27/2024 ANION GAP 12 mmol/L 10 - 20 Final 23:58 EST 05/27/2024 AGE 74 years Final 23:58 EST 05/27/2024 eGFR >60 ML/MINUTE 60 - 999 Final 23:58 EST 7 of 12 Narrative Lab Test Result Reference Status Received Comments ACCORDING TO THE NATIONAL KIDNEY DISEASE EDUCATION PROGRAM(NKDE), A NORMAL eGFR IS A VALUE GREATER THAN OR EQUAL TO 60 ML/MIN/1.73 SQ METERS. 05/27/2024 CHRONIC KIDNEY eGFR(AA) >60 ML/MINUTE 60 - 999 Final 23:58 EST DISEASE: <60mL/MIN/1.73 SQ METERS KIDNEY FAILURE: <15mL/MIN/1.73 SQ METERS THIS TEST SHOULD ONLY BE USED FOR PATIENTS 18 YEARS OF AGE AND OLDER. INFLUENZA VIRUS RAPID A/B Final GLORIA: 05/27/2024 23:27:00 EST MsgRcvd: 05/28/2024 00:01 EST Lab Test Result Reference Status Received Comments NEGATIVE 05/28/2024 INFLUENZA A Final [NEGATIVE 00:01 EST 8 of 12 Narrative Lab Test Result Reference Status Received Comments NEGATIVE 05/28/2024 INFLUENZA B Final [NEGATIVE 00:01 EST INTERNAL 05/28/2024 PASS Final NEG QC 00:01 EST INTERNAL 05/28/2024 PASS Final POS QC 00:01 EST EXTERNAL QC 05/28/2024 YES Final DONE? 00:01 EST 9 of 12 Narrative Lab Test Result Reference Status Received Comments A NEGATIVE TEST RESULT DOES NOT EXCLUDE INFECTION WITH INFLUENZA A OR B. THEREFORE, THE RESULTS OBTAINED FROM THIS FLU TEST SHOULD BE USED IN CONJUCTION WITH CLINICAL FINDINGS TO MAKE AN ACCURATE DIAGNOSIS. A POSITIVE RESULT DOES NOT RULE OUT CO-INFECTIONS WITH OTHER PATHOGENS OR IDENTIFY ANY SPECIFIC INFLUENZA A VIRUS 05/28/2024 SEND TO IC? NO Final SUBTYPE.CO-INFECTION 00:01 EST WITH INFLUENZA A AND B IS RARE. IT IS RECOMMENDED THAT DUAL POSITIVE RESULTS BE CONFIRMED BY VIRAL CULTURE OR AN FDA-CLEARED INFLUENZA A AND B MOLECULAR ASSAY. INDIVIDUALS WHO HAVE 10 of 12 RECEIVED NASALLY ADMINISTERED INFLUENZA Narrative Lab Test Result Reference Status Received Comments RESULT 05/28/2024 NO Final CRITICAL? 00:01 EST LIPASE Final GLORIA: 05/27/2024 23:05:00 EST MsgRcvd: 05/27/2024 23:50 EST Lab Test Result Reference Status Received Comments *PLEASE NOTE THAT RANGES FOR LIPASE HAVE CHANGED OF 04/01/23 DUE TO AN ASSAY 05/27/2024 LIPASE 20.0 U/L 15.0 - 78.0 Final UPDATE BY THE 23:50 EST WOOD FORM BUILDER.THE NEW ASSAY RANGE IS 6-250 U/L, WITH A REFERENCE RANGE OF 16-77 U/L. TROPONIN Final GLORIA: 05/27/2024 23:05:00 EST MsgRcvd: 05/27/2024 23:50 EST Lab Test Result Reference Status Received Comments 05/27/2024 23:50 HS TROPONIN 6.8 pg/mL 0.0 - 76.2 Final EST PROGRESS AND PROCEDURES MEDICAL DECISION MAKING: (Patient evaluated in ED for abdominal pain, nausea, vomiting. Symptoms present x2 days. On exam he is clinically well-appearing, on vitals hemodynamically stable and afebrile. Abdominal pain was diffuse, no peritoneal signs or guarding. Differential included but not limited to colitis, diverticulitis, appendicitis, cholecystitis, urolithiasis, gastroenteritis. Workup obtained, CT abdomen pelvis did 11 of 12 Narrative show 9 mm stone in the right mid ureter with partial right-sided renal obstruction, also findings of right-sided UTI/ pyelonephritis and mild stranding around the right kidney with a heterogeneous enhancement pattern. No acute process involving the left kidney seen. No other acute intra-abdominal pathology. Did have a small pericardial effusion noted, patient had an EKG with T-wave inversions V1 V2 however with no other acute ischemic changes no complaints of cardiac symptoms, negative troponin. Along with his right-sided pyelonephritis and obstructing ureterolithiasis, he did have leukocytosis of 22, UA is what it and pending. Creatinine was within normal limits. He had mild hypokalemia 3.3, repletion given while in ED. He was given morphine and Zofran x1 with symptomatic relief and 1 L normal saline bolus. Rocephin for UTI coverage. As we do not have any beds available at our hospital and no urologic especially to coverage, patient will benefit from transfer. Spoke with Dr. Maza from [facility] who accepted patient for transfer, he is pending a bed to be available for transport at this time.). Disposition: Disposition Decision Time: 03:27 05/28/2024. Patient transferred to [facility]. Transferred in stable condition. Condition: stable. CLINICAL IMPRESSION Vomiting with nausea. Not intractable or bilious. Generalized abdominal pain. Ureterolithiasis (single stone) in the right ureter with renal colic, acute pyelonephritis and urinary tract infection. No hydronephrosis or hematuria. Probable acute pyelonephritis. (Electronically signed by Noelle Borwne D.O. 05/28/24 04:10:28 EST) Generated by [facility] 12 of 12 ED PHYSICIAN DISCHARGE REPORT Observed: 05/27/2024 7:28 PM Status: F Source: [facility] Discharge Instructions Discharge Summary [address] [place] [address] [phone] 05/27/2024 Patient: BRINA NATHAN Sex: Male : 1950 Age: 74y Thank you for visiting [facility]. You have been evaluated today by Noelle Browne D.O. for the following condition(s): Principal Diagnosis Vomiting with nausea. Not intractable or bilious. Generalized abdominal pain. Ureterolithiasis (single stone) in the right ureter with renal colic, acute pyelonephritis and urinary tract infection. No hydronephrosis or hematuria. Probable acute pyelonephritis. Patient Signature Facility Monomer Recovery Operator Date/Time General Instructions with ExitWriter [address] [address] [phone] 05/27/2024 Patient: BRINA NATHAN Sex: Male : 1950 Age: 74y 1 of 2 Discharge Instructions Thank you for visiting [facility]. You have been evaluated today by Noelle Browne D.O. for the following condition(s): Principal Diagnosis Vomiting with nausea. Not intractable or bilious. Generalized abdominal pain. Ureterolithiasis (single stone) in the right ureter with renal colic, acute pyelonephritis and urinary tract infection. No hydronephrosis or hematuria. Probable acute pyelonephritis. 2 of 2 ED MED ADMINISTRATION DETAIL Observed: 0 05/27/2024 7:28 PM Status: F Source: [facility] Chainstitch Binder Medication Administration Record [address] [address] [id number] 05/27/2024 Patient: BRINA NATHAN Sex: Male : 1950 Age: 74y MEASUREMENTS: Wt: 68.0 kg, Ht/Richie: 66.0 in, BMI: 24.21 ALLERGIES: No known drug allergies Medication Ordered Medication Administration Date/Time Ondansetron 20:39 05/27 Ondansetron (Zofran) ODT PO 4 mg given. Given (Zofran) ODT PO 4 Information reviewed with patient. - 20:39 Felicitas Charles R.N. 20:39 05/27/2024 mg (NOW x1) Felicitas Charles R.N. Scanned Zofran IVP 4 mg 23:18 05/27 Zofran IVP 4 mg given via Site# 1. Allergies verified Given (NOW x1) and confirmed 5 rights. IV patency established. IV site checked: no 23:18 05/27/2024 pain, redness, or swelling. IV flushed thoroughly pre-medication Jonathan Shukla R.N. administration. IVP given by nurse. Information reviewed with Scanned patient including reason for taking this medication. Verbalizes understanding. - 23:20 Jonathan Shukla R.N. 1 of 3 [facility]stitch Binder Medication Ordered Medication Administration Date/Time IV NS 0.9 % 1000 23:17 05/27 IV NS 0.9 % 1000 mL started in bag#1 1000 mL at Started mL at 999 mL/hr 999 mL/hr via Site# 1. Allergies verified and confirmed 5 rights. Via 23:05/27/2024 (NOW x1) dial-a-flow. IV patency established. IV site checked: no pain, Jonathan Shukla R.N. redness, or swelling. IV flushed thoroughly pre-medication Stopped administration. Information reviewed with patient including reason 00:40 05/28/2024 for taking this medication. - 23:18 Mo Groves R.N. Scanned 00:40 05/28 Medication Discontinued: bag #1 infused. Total amount infused: 1000 mL. IV patency established. IV site checked: no pain, redness, or swelling. IV flushed thoroughly post-medication administration. - 02:40 Jonathan Shukla R.N. Pepcid 20mg/50ml 23:05/27 Pepcid 20mg/50ml Premix IVPB 20 mg started at 4 Started Premix IVPB 20 mg mg/hr via Site# 1. Allergies verified and confirmed 5 rights. Via 23:05/27/2024 (NOW x1) dial-a-flow. IV patency established. IV site checked: no pain, Jonathan Shukla R.N. redness, or swelling. IV flushed thoroughly pre-medication Stopped administration. Information reviewed with patient including reason 23:40 05/27/2024 for taking this medication. Verbalizes understanding. - 23:22 Mo Groves R.N. Scanned 23:05/27 Medication Discontinued: IV infused. Total amount infused: 50 mL. IV patency established. IV site checked: no pain, redness, or swelling. IV flushed thoroughly post-medication administration. - 23:45 Jonathan Shukla R.N. MORPHine IVP 4 23:43 05/27 MORPHine IVP 4 mg given via Site# 1. Allergies Given mg (NOW x1, HIGH verified and confirmed 5 rights. IV patency established. IV site 23:43 05/27/2024 ALERT checked: no pain, redness, or swelling. IV flushed thoroughly Jonathan Shukla R.N. MEDICATION) pre-medication administration. IVP given by nurse. Information Scanned reviewed with patient including reason for taking this medication. Verbalizes understanding. - 23:44 Jonathan Shukla R.N. 2 of 3 [facility]stitch Binder Medication Ordered Medication Administration Date/Time cefTRIAXone 02:42 05/28 cefTRIAXone (Rocephin) IVPB 1gm/50ml NS 1 g Started (Rocephin) IVPB started at 100 mL/hr diluted in sodium chloride IVPB 0.9 % 02:42 05/28/2024 1gm/50ml NS 1 g Minibag+ 50 mL via Site# 1. Allergies verified and confirmed 5 Jonathan Shukla R.N. diluted in sodium rights. Via dial-a-flow. IV patency established. IV site checked: no Stopped chloride IVPB 0.9 % pain, redness, or swelling. IV flushed thoroughly pre- medication 03:17 05/28/2024 Minibag+ 50 mL at administration. Information reviewed with patient including reason Jonathan Shukla R.N. 100 mL/hr (NOW x1) for taking this medication. Verbalizes understanding. - 02:45 Scanned Jonathan Shukla R.N. 03:17 05/28 Medication Discontinued: IV infused. Total amount infused: 50 mL. IV patency established. IV site checked: no pain, redness, or swelling. IV flushed thoroughly post-medication administration. - 04:47 Jonathan Shukla R.N. Potassium Chloride 04:53 05/28 Potassium Chloride PO 20 mEq given. Allergies Given PO 20 mEq (NOW verified and confirmed 5 rights. Information reviewed with patient 04:53 05/28/2024 x1) including reason for taking this medication. Verbalizes Jonathan Shukla R.N. understanding. - 04:55 Jonathan Shukla R.N. Scanned 3 of 3 ED ORDER SHEET (CPOE ONLY) Observed: 7:28 PM Status: F Source: [facility] Order Sheet Order Sheet [address] [address] [id number] 05/27/2024 Patient: BRINA NATHAN Sex: Male : 1950 Age: 74y MEASUREMENTS: Wt: 68.0 kg, Ht/Rihcie: 66.0 in, BMI: 24.21 ALLERGIES: No known drug allergies MEDICATION/IV/DRIP/FLUID ORDERS Order Description Priority Entered Acknowledged Completed Ondansetron (Zofran) ODT PO4 20:33 05/27/2024 20:38 20:39 mg (NOW x1) Puma Irving R.N. 05/27/2024 05/27/2024 Verbal Order, Auth by: Daniela Talley R.N. [place], R.N. Read back and verified Zofran IVP4 mg (NOW x1) 23:13 05/27/2024 23:20 Noelle Browne D.O. 05/27/2024 Jonathan Shukla R.N. Reason for ordering with alerts: Clinical consideration given --23:13 05/27/2024 Noelle Browne D.O. IV NS 0.9 %1000 mL at 999 23:13 05/27/2024 23:18 mL/hr (NOW x1) Noelle Browne D.O. 05/27/2024 Jonathan Shukla R.N. Pepcid 20mg/50ml Premix 23:13 05/27/2024 23:22 1 of 4 Order Sheet IVPB20 mg (NOW x1) Noelle Browne D.O. 05/27/2024 Jonathan Shukla R.N. MORPHine IVP4 mg (NOW x1, 23:23 05/27/2024 23:41 23:44 HIGH ALERT MEDICATION) Noelle Browne D.O. 05/27/2024 05/27/2024 Jonathan Groves R.NGunner R.NGunner cefTRIAXone (Rocephin) IVPB 02:36 05/28/2024 02:39 02:45 1gm/50ml NS1 g diluted in Noelle Browne D.O. 05/28/2024 05/28/2024 sodium chloride IVPB 0.9 % Jonathan Groves Minibag+ 50 mL at 100 mL/hr R.N. R.NGunner (NOW x1) potassium chloride PO Liq 04:05 05/28/2024 Cancelled: 20mEq/15ml20 mEq (NOW x1) Noelle Browne D.O. Unavailable/Mat/Equip 04:51 EST Jonathan Shukla R.N. Potassium Chloride PO20 mEq 04:47 05/28/2024 04:51 04:55 (NOW x1) Noelle Browne D.O. 05/28/2024 05/28/2024 Jonathan Gorves R.N. R.N. Reason for ordering with alerts: Clinical consideration given --04:47 05/28/2024 Noelle Browne D.O. LAB ORDERS Order Description Priority Entered Acknowledged Collected Completed CBC w Diff Stat Stat 23:13 05/27/2024 23:57 05/27/2024 23:57 05/27/2024 Jonathan Hopkins Charles Wilbur, D.O. R.N. R.N. CMP Stat Stat 23:13 05/27/2024 23:57 05/27/2024 23:57 05/27/2024 Jonathan Hopkins Charles Wilbur, D.O. R.N. RSana. Lipase Stat Stat 23:13 05/27/2024 23:57 05/27/2024 23:57 05/27/2024 2 of 4 Order Sheet Jonathan Hopkins Charles Wilbur, D.O. R.N. RGunnerN. Troponin-I Stat Stat 23:13 05/27/2024 23:57 05/27/2024 23:57 05/27/2024 Jonathan Hopkins Charles Wilbur, D.O. R.NGunner R.NGunner EKG - ED Stat Stat 23:13 05/27/2024 23:57 05/27/2024 23:57 05/27/2024 Jonathan Hopkins Charles Wilbur, D.O. R.N. R.N. Urinalysis Stat Stat 23:13 05/27/2024 23:57 05/27/2024 23:57 05/27/2024 Jonathan Hopkins Charles Wilbur, D.O. R.NGunner R.Angela. Flu Swab (Influenzae Stat 23:13 05/27/2024 23:57 05/27/2024 23:57 05/27/2024 AAg) Stat Jonathan Hopkins Charles Wilbur, D.O. R.N. R.N. Urine Culture [CCL] Stat Stat 04:09 05/28/2024 04:46 05/28/2024 04:46 05/28/2024 Jonathan Hopkins Charles Wilbur, D.O. R.NGunner RMarguerite DIAGNOSTIC STUDY ORDERS Order Description Priority Entered Acknowledged Completed CT ABD/PEL w Cont Stat Stat 23:13 05/27/2024 23:57 23:57 Noelle Browne D.O. 05/27/2024 05/27/2024 Jonathan Groves R.NGunner RMarguerite Reason for Study: abdominal pain diffuse,Vomiting 3 of 4 Order Sheet STAFF ORDERS Order Description Priority Entered Acknowledged Collected Completed IV Saline Lock 23:13 05/27/2024 23:57 05/27/2024 23:57 05/27/2024 Jonathan Hopkins Charles Wilbur, D.O. R.N. RMarguerite Pulse Oximeter 23:13 05/27/2024 23:57 05/27/2024 23:57 05/27/2024 Jonathan Hopkins Charles Wilbur, D.O. R.NGunner R.NGunner Track Grinder Operator 23:13 05/27/2024 23:57 05/27/2024 23:57 05/27/2024 Jonathan Hopkins Charles Wilbur, D.O. R.NGunner RGunnerNGunner [Electronically signed by Noelle Browne D.O. (05/28/2024 04:10 EST)] [Electronically signed by Noelle Browne D.O. (05/28/2024 04:47 EST)] 4 of 4 ED VISIT SUMMARY Observed: 05/27/2024 7:28 PM Status: F Source: [facility] Visit Overview Visit Overview [address] [address] [id number] 05/27/2024 Patient: RBINA NATHAN Sex: Male : 1950 Age: 74y 05/28/2024 08:31 AM EST ED Arrival:19:28 05/27/2024 EST Status: Recent Travel:no Language:eng Adv Directive:No Isolation Status: Ethnicity:N Fall Risk:no risk Infectious Disease Exposure:no Measurements:5'6 / 167.6 Self-Harm Status:risk Sepsis Screen:negative cm 150.0 lb / 68.0 kg Chief Complaint:NAUSEA, VOMITING, and (Pt c/o nausea and vomiting since yesterday. He has felt a bit sick over the past 2 weeks.) ALLERGIES No Known Drug Allergies HOME MEDICATIONS ipratropium 0.5 mg-albuterol 3 mg (2.5 mg base)/3 mL nebulization soln: USE 1 AMPULE IN NEBULIZER EVERY 4 HOURS NEEDED FOR SHORTNESS OF BREATH AND FOR WHEEZING Stiolto Respimat 2.5 mcg-2.5 mcg/actuation solution for inhalation: 2 puff once a day. Visit Overview PAST MEDICAL HISTORY / PROBLEMS COPD - Chronic Obstructive Pulmonary Disease See nurses notes PAST SURGICAL HISTORY Back Surgery Hip Surgery Prostatectomy SOCIAL HISTORY Smoking status: No Alcohol use: Yes Drug use: No ED COURSE MEDICATIONS GIVEN IN EMERGENCY DEPARTMENT 20:39 05/27/24 Ondansetron (Zofran) ODT PO 4 mg 23:17 05/27/24 IV NS 0.9 % 1000 mL 999 mL/hr 23:18 05/27/24 Zofran IVP 4 mg 23:20 05/27/24 Pepcid 20mg/50ml Premix IVPB 20 mg 4 mg/hr 23:43 05/27/24 MORPHine IVP 4 mg cefTRIAXone (Rocephin) IVPB 1gm/50ml NS 1 g diluted in sodium chloride IVPB 0.9 % 02:42 05/28/24 Minibag+ 50 mL 100 mL/hr 04:53 05/28/24 Potassium Chloride PO 20 mEq IV SITE INFORMATION 23:18 05/27/24 Site #1 right AC, 20g. Saline lock. INTAKE OUTPUT REASSESMENT (most recent) 02:47 05/28/24. The patient reports no complaints and the patient is calm and resting quietly. ( pt w/o accepting bed with urology). Patient waiting for transportation. Visit Overview VITAL SIGNS First Vitals Last Vitals Temp 19:45 05/27/24 97.9 F Temp 08:08 05/28/24 BP 19:45 05/27/24 127/83 BP 08:08 05/28/24 110/56 HR 19:45 05/27/24 109 HR 08:08 05/28/24 93 RR 19:45 05/27/24 16 RR 08:08 05/28/24 O2 Sat 19:45 05/27/24 95% O2 Sat 08:08 05/28/24 Pain 19:45 05/27/24 8 Pain 08:08 05/28/24 ETCO2 19:45 05/27/24 ETCO2 08:08 05/28/24 GCS 19:45 05/27/24 GCS 08:08 05/28/24 RTS 19:45 05/27/24 RTS 08:08 05/28/24 PROCEDURES NURSING INTERVENTIONS LABS / STUDIES LABS / STUDIES ORDERED CBC w Diff CMP CT ABD/PEL w Cont EKG - ED Flu Swab (Influenzae AAg) Lipase Troponin-I Urinalysis Urine Culture [CCL] LABS / STUDIES PENDING IMPORT URINALYSIS CLINICAL IMPRESSION GENERALIZED ABDOMINAL PAIN PROBABLE ACUTE PYELONEPHRITIS URETEROLITHIASIS (SINGLE STONE) IN THE RIGHT URETER WITH RENAL COLIC, ACUTE PYELONEPHRITIS AND URINARY TRACT INFECTION. NO HYDRONEPHROSIS OR HEMATURIA 3 of 4 Visit Overview VOMITING WITH NAUSEA. NOT INTRACTABLE OR BILIOUS 4 of 4 ED VITALS FLOW SHEET Observed: 7:28 PM Status: F Source: [facility] Vitals Vital Sign Flow Sheet [address] [address] [id number] 05/27/2024 Patient: BRINA NATHAN Sex: Male : 1950 Age: 74y Measurements Wt: 68.0 kg, Ht/Richie: 66.0 in, BMI: 24.21 Measured Time BP MAP HR RR O2Sat ETCO2 Temp Pain GCS RTS 08:08 05/28/2024 110/56 72 93 07:53 05/28/2024 117/65 77 94 07:38 05/28/2024 126/64 84 97 07:35 05/28/2024 96 91% 07:30 05/28/2024 100 92% 07:25 05/28/2024 94 91% 07:23 05/28/2024 125/64 90 91 07:20 05/28/2024 91 93% 07:15 05/28/2024 92 91% 07:10 05/28/2024 95 85% 07:08 05/28/2024 128/61 96 92 07:05 05/28/2024 91 89% 07:00 05/28/2024 95 85% 06:55 05/28/2024 98 83% 06:53 05/28/2024 139/71 93 94 1 of 6 Vitals Measured Time BP MAP HR RR O2Sat ETCO2 Temp Pain GCS RTS 06:50 05/28/2024 94 89% 06:38 05/28/2024 125/72 84 95 06:23 05/28/2024 128/72 88 94 06:08 05/28/2024 123/75 90 88 05:53 05/28/2024 122/72 89 92 05:38 05/28/2024 121/76 91 92 05:30 05/28/2024 94 90% 05:25 05/28/2024 92 95% 05:23 05/28/2024 133/73 98 88 05:20 05/28/2024 86 95% 05:15 05/28/2024 79 94% 05:10 05/28/2024 87 95% 05:08 05/28/2024 138/74 88 89 05:05 05/28/2024 91 92% 05:00 05/28/2024 91 94% 04:55 05/28/2024 99 92% 04:53 05/28/2024 133/73 95 81 04:50 05/28/2024 89 95% 04:45 05/28/2024 92 92% 04:40 05/28/2024 87 95% 04:38 05/28/2024 122/67 87 91 04:35 05/28/2024 90 95% 04:30 05/28/2024 86 94% 04:25 05/28/2024 91 85% 04:23 05/28/2024 115/65 89 88 2 of 6 Vitals Measured Time BP MAP HR RR O2Sat ETCO2 Temp Pain GCS RTS 04:20 05/28/2024 95 85% 04:15 05/28/2024 88 83% 04:10 05/28/2024 87 85% 04:08 05/28/2024 115/71 90 84 04:05 05/28/2024 89 83% 04:00 05/28/2024 86 84% 03:55 05/28/2024 81 88% 03:53 05/28/2024 119/71 85 74 03:50 05/28/2024 86 91% 03:45 05/28/2024 91 88% 03:30 05/28/2024 93 96% 03:25 05/28/2024 84 94% 03:23 05/28/2024 122/74 84 83 03:20 05/28/2024 87 94% 03:15 05/28/2024 90 95% 03:10 05/28/2024 87 94% 03:07 05/28/2024 133/70 91 86 03:05 05/28/2024 85 93% 03:00 05/28/2024 85 94% 02:55 05/28/2024 87 94% 02:52 05/28/2024 122/70 81 84 02:50 05/28/2024 87 93% 02:45 05/28/2024 95 95% 02:40 05/28/2024 90 95% 02:37 05/28/2024 121/71 91 84 3 of 6 Vitals Measured Time BP MAP HR RR O2Sat ETCO2 Temp Pain GCS RTS 02:35 05/28/2024 84 94% 02:30 05/28/2024 85 93% 02:25 05/28/2024 83 94% 02:22 05/28/2024 118/76 93 87 02:20 05/28/2024 86 94% 02:15 05/28/2024 83 95% 02:10 05/28/2024 89 95% 02:08 05/28/2024 122/68 86 87 02:05 05/28/2024 86 95% 02:00 05/28/2024 87 95% 01:55 05/28/2024 92 94% 01:53 05/28/2024 120/67 86 88 01:50 05/28/2024 91 96% 01:45 05/28/2024 95 96% 01:40 05/28/2024 92 94% 01:38 05/28/2024 123/68 87 91 01:35 05/28/2024 89 95% 01:30 05/28/2024 93 96% 01:25 05/28/2024 89 95% 01:23 05/28/2024 121/69 92 89 01:20 05/28/2024 89 95% 01:15 05/28/2024 91 95% 01:10 05/28/2024 91 95% 01:08 05/28/2024 128/70 95 91 01:05 05/28/2024 93 95% 4 of 6 Vitals Measured Time BP MAP HR RR O2Sat ETCO2 Temp Pain GCS RTS 01:00 05/28/2024 92 95% 00:55 05/28/2024 90 95% 00:52 05/28/2024 130/79 97 92 00:50 05/28/2024 89 95% 00:45 05/28/2024 89 95% 00:40 05/28/2024 89 94% 00:38 05/28/2024 132/71 91 92 00:35 05/28/2024 92 96% 00:30 05/28/2024 96 95% 00:27 05/28/2024 104 87% 00:23 05/28/2024 130/73 87 95 00:22 05/28/2024 95 97% 00:17 05/28/2024 94 96% 00:12 05/28/2024 100 90% 00:08 05/28/2024 128/73 91 92 00:03 05/28/2024 92 96% 23:58 05/27/2024 93 96% 23:53 05/27/2024 93 97% 23:53 05/27/2024 138/75 99 94 23:48 05/27/2024 99 85% 23:43 05/27/2024 97 95% 23:38 05/27/2024 92 93% 23:38 05/27/2024 160/79 105 89 23:33 05/27/2024 97 96% 23:28 05/27/2024 100 96% 5 of 6 Vitals Measured Time BP MAP HR RR O2Sat ETCO2 Temp Pain GCS RTS 23:23 05/27/2024 147/79 101 94 23:23 05/27/2024 100 94% 23:18 05/27/2024 104 95% 23:13 05/27/2024 99 97% 23:08 05/27/2024 134/70 96 108 23:08 05/27/2024 112 96% 22:58 05/27/2024 101 97% 22:53 05/27/2024 101 96% 22:53 05/27/2024 151/91 113 109 19:45 05/27/2024 127/83 98 109 16 95% 97.9 F 8 6 of 6 ED SUPER BILL Observed: 05/27/2024 7:28 PM Status: F Source: [address] [place] [address] [id number] 05/27/2024 Patient: BRINA NATHAN Sex: Male : 1950 Age: 74y Facility Professional Category Item Description Code Code Quantity Fee Total Drugs Normal Saline 265095 1 $0.00 $0.00 1000cc (154387) Nurse/E/M EMERGENCY 885173 1 $0.00 $0.00 DEPT VISIT HIGH SEVERITYFUNCJ (71019-47) Nurse/IV/IM/Infusions Drip/IVPB initial 646856 1 $0.00 $0.00 (35990) Nurse/IV/IM/Infusions Drip/IVPB seq 375055 1 $0.00 $0.00 (89846) Nurse/IV/IM/Infusions Hydration 720748 1 $0.00 $0.00 additional hour (42992) Nurse/IV/IM/Infusions IVP additional 153055 2 $0.00 $0.00 push (03434) Grand $0.00 Total Providers 1 of 2 [facility] Noelle Browne D.O. Chief Complaint VOMITING. Principal Diagnosis Vomiting with nausea. Not intractable or bilious. Generalized abdominal pain. Ureterolithiasis (single stone) in the right ureter with renal colic, acute pyelonephritis and urinary tract infection. No hydronephrosis or hematuria. Probable acute pyelonephritis. ICD-10 Codes R11.2: Nausea with vomiting, unspecified R11.10: Vomiting, unspecified R10.84: Generalized abdominal pain N20.1: Calculus of ureter 2 of 2 ALLERGIES DATE TYPE / CODE NAME / CODE REACTION SEVERITY SOURCE Drug Class/028512422(SNOMED CT) NO KNOWN ALLERGIES [facility] Miscellaneous Allergy/324672932([facility] ED CT) No Known Drug Allergies Moderate (Severity Modifier) (Qualifier Value) [facility] ENCOUNTERS ADMIT/DISCHARGE ACCOUNT NUMBER ADMITTING ENCOUNTER CLASS LOCATION SOURCE 11/14/2024 [id number] Ambulatory [id number] ilding:URCAN T [facility] 08/02/2024 [id number] [facility] 08/02/2024/08/03/[id number]/02/2024/08/03/19 [id number] Ambulatory [id number] ilding:URCA5 22 [facility] 07/16/2024/07/17/19 [id number] [facility] 06/18/2024/06/19/19 [id number] JACEK, ROSADEEJACQUIE Ambulatory [id number] ilding:MRORR oom: MRORPLBed: 05 [facility] 06/11/2024/06/12/19 [id number] [facility] 05/28/2024 [id number] TOBY MAZA Inpatient Encounter [id number] ildinMRoo m: [id number]: [facility] 05/27/2024/05/28/19 [id number] NOELLE BROWNE DO Emergency Buildin Room: ERBed: [address] PAYERS ENCOUNTER GUARANTOR PAYER SUBSCRIBER SOURCE 11/14/2024 Primary Insurance:MEDICARE A AND BPolicy Number: [id number] Date:9868-50-21Ivyw Name:Marcello MACHADO JR.: [id number] 11/14/2024 Secondary Insurance:AETNA MEDICARE SUPPLEMENTPolicy Number: [id number] Date:0156-77-93Xljr Name:Radha MACHADO JR.: [id number] [place] [address] 08/02/2024 Primary Insurance:MEDICARE A AND BPolicy Number: [id number] Date:2897-63-68Wece Name:Marcello MACHADO JR.: [id number] [address] [facility] 08/02/2024 Secondary Insurance:AETNA MEDICARE SUPPLEMENTPolicy Number: [id number] Date:6450-74-55Vcse Name:Radha MACHADO JR.: [id number] [address] [facility] 08/02/2024 Primary Insurance:MEDICARE A AND BPolicy Number: [id number] Date:6630-95-11Bdeb Name:Marcello MACHADO JR.: [id number] [address] [facility] 08/02/2024 Secondary Insurance:AETNA MEDICARE SUPPLEMENTPolicy Number: [id number] Date:2994-68-14Pois Name:Radha MACHADO JR.: [id number] [place] [address] 08/02/2024 Primary Insurance:MEDICARE A AND BPolicy Number: [id number] Date:7609-51-01Ddft Name:Marcello MACHADO JR.: [id number] [address] [facility] 08/02/2024 Secondary Insurance:AETNA MEDICARE SUPPLEMENTPolicy Number: [id number] Date:5615-21-13Pjrt Name:Radha MACHADO JR.: [id number] [address] [facility] 07/16/2024 Primary Insurance:MEDICARE A AND BPolicy Number: [id number] Date:3036-72-92Rrgx Name:Marcello MACHADO JR.: [id number] [address] [facility] 07/16/2024 Secondary Insurance:AETNA MEDICARE SUPPLEMENTPolicy Number: [id number] Date:4047-06-15Ismo Name:Radha MACHADO JR.: [id number] [address] [address] [facility] 06/18/2024 Primary Insurance:MEDICARE A AND BPolicy Number: [id number] Date:5232-62-56Skyb Name:Marcello MACHADO JR.: [id number] [address] [place] [address] 06/18/2024 Secondary Insurance:AETNA MEDICARE SUPPLEMENTPolicy Number: [id number] Date:3391-58-88Nuyf Name:Radha MACHADO JR.: [id number] [place] [address] 06/11/2024 Primary Insurance:MEDICARE A AND BPolicy Number: [id number] Date:4938-12-30Mjsd Name:Marcello MACHADO JR.: [id number] [address] [facility] 06/11/2024 Secondary Insurance:AETNA MEDICARE SUPPLEMENTPolicy Number: [id number] Date:4237-46-74Ihxe Name:Radha MACHADO JR.: [id number] [address] [facility] 05/28/2024 Primary Insurance:MEDICARE A AND BPolicy Number: [id number] Date:5904-50-04Nlrm Name:Marcello MACHADO JR.: [id number] [place] [address] 05/28/2024 Secondary Insurance:AETNA MEDICARE SUPPLEMENTPolicy Number: [id number] Date:8426-28-37Vtut Name:Radha MACHADO JR.: [id number] [place] [address] 05/27/2024 BRINA Ta LUCINDA: [id number] [address] [place] [address] [phone]: () Primary Insurance:MEDICARE OUTPATIENTPolicy Number: [id number] Date:Plan Name:GUILLAUME Ta LUCINDA: [id number] [id number] [id number] [facility] 05/27/2024 Secondary Insurance:[employer] [employer] MEDICARE SUPPLEMENPolicy Number: [id number] Date:Plan Name: BRINA Ta LUCINDA: [id number] [address] [place] [id number] [facility]
--- OUTSIDE RECORDS SUMMARY | 2024-11-14 | XMS RPT_ITS ---
Author Name Auto Generated Organization OHIP Care Team Providers Care Molding Machine Tender Name Role Phone TOBY MAZA Admitting Unavailable [...] Care Unavailable PICCHUN EDEN Referring Unavailable ADRIA, ESTEABN A Primary Care Unavailable PROBLEMS DATE TYPE CONDITION / CODE ATTENDING STATUS [facility] 05/28/2024 Active Renal calculi / N20.0(ICD-10) RADHA READ [facility] 04/18/2013 Active Malignant neopla sm of prostate (HCC) / C61(ICD-10) CHUN CADET [facility] 06/18/2024 Active Right ureteral s tone / N20.1(ICD-10) RADHA READ [facility] 06/18/2024 Active Ureteral stone / N20.1(ICD-10) [facility] 05/28/2024 Active ureteral stone / UNK(Unknown) TOBY MAZA [facility] PROCEDURES No Procedure Records Found RESULTS GIUSEPPE Observed: 08/03/2024 12:00 AM Status: COMPLETED Source: [facility] Telephone ([id number]) BRINA MACHADO JR. ([id number]) 1950 M Date Time Provider Department 08/03/24 CHUN CADET [id number] During your visit today, we recorded the following information about you: Chun Cadet APRN.CNP 08/03/2024 3:50 PM Signed ----- Message from Radha Read MD sent at 08/03/2024 3:46 PM EDT ----- 3 month repeat PSA with follow up with [place] ----- Message ----- From: Chun Cadet APRN.CNP Sent: 08/03/2024 3:38 PM EDT To: Radha Read MD Hx of prostatectomy 2016. No [...] [C61] Order(s):PROSTATE-SPECIFIC ANTIGEN DIAGNOSTIC [SQPSA] Order #: [id number] FUTURE Prescriptions as of 11/07/2024 - Ascorbic [...] SUPINE Observed: 11:52 AM Status: F Source: [facility] * * *Final Report* * * [...] hardware status post RIGHT total hip arthroplasty. Color Shop Helper: PSCB Transcribe Date/Time: Aug 04 2024 2:33P Dictated by : SHIVAM BELL MD This examination was interpreted and the report reviewed and electronically signed by: SHIVAM BELL MD on Aug 04 2024 2:35PM EST [id number] PROGRESS Observed: 08/02/2024 11:30 AM Status: COMPLETED Source: [facility] HNO ID: [id number] Author: OCTAVIO CRUMP RT(R) Service: Radiology Author [...] PATIENT PRESENTS WITH AN IMPLANTABLE OR ATTACHED PROFESSOR OF BIBLICAL STUDIES: No RADIOLOGY DEPARTMENT: General X-ray: Exam(s) Completed: Abdomen X-Ray: Abdomen PERIPHERAL IV DATA: Not applicable SIGNED BY: RT Blake(R) August 02, 2024 11:47 AM PSA SERPL-MCNC Collected: 11:27 AM Status: F Source: [facility] Order Comment: Specimen Type : BLOOD SPECIMEN Ordering Facility: [facility] Address: [address] [place] [address] TYPE CODE TESTS RESULT OUT OF RANGE REFERENCE UNITS LAB 2857-1(LOINC) PSA SerPl-mCnc 0.14 <2.60 ng/mL Result Comment: Total PSA te st methodology used is the Electrochemiluminescence Immunoassay by Nader Ganji. Total PSA values by differing methodologies cannot be interchanged. Performed By: #### 2857-1 ## ## [facility] CLIA [id number] [address] [place] [address] [place] PROGRESS Observed: 08/02/2024 9:20 AM Status: COMPLETED Source: [facility] HNO ID: [id number] Author: CHUN CADET APRN.CRANE OPERATOR CAB Service: ? Author Type: Nurse Practitioner Type: Progress Notes Filed: 08/02/2024 09:48 Note Text: [facility] ESTABLISHED PATIENT FOLLOW-UP [...] formation; to be completed at [facility] in [place] Orders: UA DIP, URINE (POC) XR ABDOMEN 1V SUPINE; Future Malignant neoplasm of prostate (HCC) - History of prostate cancer with prostatectomy in 2016. No recent PSA levels available. Discussed importance of regular PSA monitoring to detect recurrence. Ordered PSA test; patient to complete at [facility] in [place]. Will follow up with results. Orders: UA [...] Diagnosis Date COPD (chronic obstructive pulmonary disease) ([facility]) sizer hand - Ana Hardin LOSS PREVENTION ASSOCIATE - [facility] [place], [place] Hematuria was also dealing with kidney stones Kidney stones Prostate cancer ([facility]) 03/04/2013 PAST SURGICAL HISTORY Procedure Laterality Date [...] on today's exam. No renal calculi detected. Color Shop Helper: ROSAURA Transcribe Date/Time: Jul 17 2024 3:05P Dictated by : SANTOS CAMPBELL MD This examination was interpreted and the report reviewed and electronically signed by: SANTOS CAMPBELL MD on Jul 17 2024 3:09PM EST KUB - XR ABDOMEN 1V SUPINE Result Date: 05/28/2024 IMPRESSION: Limited study. No calculi identified. Color Shop Helper: TwitJump Transcribe Date/Time: May 28 2024 11:33A Dictated [...] documented by my ancillary staff. Chun Cadet APRN.CRANE OPERATOR CAB CNOV Observed: 08/02/2024 9:20 AM Status: COMPLETED Source: [facility] Office Visit ([id number]) BRINA MACHADO JR. ([id number]) 1950 M Date Time Provider Department 08/02/24 9:20 AM CHUN CADET [id number] During your visit today, we recorded the following information about you: Pulse Blood pressure 65/minute 112/64 Chun Cadet APRN.CNP 08/02/2024 9:48 AM Signed [facility] ESTABLISHED PATIENT FOLLOW-UP [...] formation; to be completed at [facility] in [place] Orders: UA DIP, URINE (POC) XR ABDOMEN 1V SUPINE; Future Malignant neoplasm of prostate (HCC) - History of prostate cancer with prostatectomy in 2016. No recent PSA levels available. Discussed importance of regular PSA monitoring to detect recurrence. Ordered PSA test; patient to complete at [facility] in [place]. Will follow up with results. Orders: UA [...] Diagnosis Date COPD (chronic obstructive pulmonary disease) ([facility]) sizer hand - Ana Hardin LOSS PREVENTION ASSOCIATE [facility] [place] [facility] [place] Hematur[place] was also dealing with kidney stones Kidney stones Prostate cancer ([facility]) 03/04/2013 PAST SURGICAL HISTORY Procedure Laterality Date [...] on today's exam. No renal calculi detected. Color Shop Helper: PSCB Transcribe Date/Time: Jul 17 2024 3:05P Dictated by : SANTOS CAMPBELL MD This examination was interpreted and the report reviewed and electronically signed by: SANTOS CAMPBELL MD on Jul 17 2024 3:09PM EST KUB - XR ABDOMEN 1V SUPINE Result Date: 05/28/2024 IMPRESSION: Limited study. No calculi identified. Color Shop Helper: PSCB Transcribe Date/Time: May 28 2024 11:33A Dictated by : MARLON CHUA MD This examination was interpreted and the report reviewed and electronically signed by: MARLON CHUA MD on May 28 2024 11:38AM [facility] Clinic: GLUCOSE UA (POCT) (mg/dL) Date [...] recurrence. Schedule a kidney x-ray at a [place] facility to assess for any new kidney [...] in color (clear to pale yellow). Add lemon/venetie ira juice to your water (fresh squeezed or [...] test; patient to complete at [facility] in [place]. Will follow up with results. Orders: UA [...] formation; to be completed at [facility] in [place] Orders: UA DIP, URINE (POC) XR ABDOMEN 1V SUPINE; Future Allergies As of Date: 08/02/2024 (No Known Allergies) Date Reviewed: 08/02/2024 Reviewed by: Jennifer Shin MA - Fully Assessed Reason for Visit: Post-Op Visit [1236] Primary Visit Diagnosis:Right ureteral stone [N20.1] Other Visit Diagnosis:Malignant neoplasm of prostate (HCC) [C61] Order(s):UA DIP, URINE (POC) [[id number]] Order #: [id number]. #:[id number] PROSTATE-SPECIFIC ANTIGEN DIAGNOSTIC [SQPSA] Order #: [id number] FUTURE XR ABDOMEN 1V SUPINE [[id number]] Order #: [id number] FUTURE Prescriptions as of 08/02/2024 - Ascorbic [...] PSA blood test performed (available at any [facility] facility and does not require fasting) so we can check for prostate cancer recurrence. Schedule a kidney x-ray at a [place] facility to assess for any new kidney [...] in color (clear to pale yellow). Add lemon/venetie ira juice to your water (fresh squeezed or [...] Service: OFFICE/OUTPATIENT ESTABLISHED MOD MDM 30 MIN [89919] Additional E/M codes: VISIT CPLX INHERENT EANDM ASSOC WITH MED * Disposition: Return in about 1 year (around 08/02/2025) for KUB. PSA to be completed alvino. . Follow-up and Disposition History for Encounter Date Provider Department Center 08/02/2024 [id number] Priti [place] Encounter Status:Closed by CHUN CADET on 08/02/24 PROGRESS Observed: 07/16/2024 8:30 AM Status: COMPLETED Source: [facility] HNO ID: [id number] Author: NICKY BRONSON RDMS Service: ? Author Type: Top Icer Type: Progress Notes Filed: 07/16/2024 08:26 Note [...] PATIENT PRESENTS WITH AN IMPLANTABLE OR ATTACHED PROFESSOR OF BIBLICAL STUDIES: No RADIOLOGY DEPARTMENT: Ultrasound PERIPHERAL IV DATA: Not applicable SIGNED BY: Nicky Bronson RDMS RVT July 16, 2024 8:26 AM US KIDNEY/BLADDER Observed: 07/16/2024 8:25 AM Status: F Source: [facility] * * *Final Report* * * [...] on today's exam. No renal calculi detected. Color Shop Helper[facility] Transcribe Date/Time: Jul 17 2024 3:05P Dictated by : SANTOS CAMPBELL MD This examination was interpreted and the report reviewed and electronically signed by: SANTOS CAMPBELL MD on Jul 17 2024 3:09PM EST [id number] ANES POSTPROC EVAL Observed: 06/18/2024 1:30 PM Status: COMPLETED [facility] [id number] Author: JESSICA LUU MD Service: Anesthesiology Author [...] June 18, 2024 TIME: 1:30 PM CSN: [id number] CALCULI ANALYSIS Collected: 12:31 PM Status: F Source: [facility] Order Comment: Specimen Type : CALCULUS SPECIMEN Ordering Facility: [facility] Address: [address] [place] [address] TYPE CODE TESTS RESULT OUT OF RANGE REFERENCE UNITS LAB CSTYPE CALCULUS TYPE Right ureteral calculi LAB CSCLR CALCULUS COLOR LIGHT BROWN LAB CSSZWT CALCULUS SIZE AND WT Multiple pieces. 0.0052 GRAMS LAB CSCOMP CALCULUS COMPOSITION 1 60% Calcium Oxalate Monohydrate LAB CSCOMP2 CALCULUS COMPOSITION 2 30% Calcium Oxalate Dihydrate LAB CSCOMP3 CALCULUS COMPOSITION 3 10% Minor Components LAB 21111-9(INC) Stone Analysis-Imp Result Comment: This test wa s developed, and its performance characteristics determined by the [facility] Department of Pathology and Laboratory Medicine. It has not been cleared or approved by the FDA. The [facility] Department of Pathology and Laboratory Medicine is regulated under CLIA as qualified to perform high-complexity testing. This test is used for clinical purposes. It should not be regarded as investigational or for research. This test was developed, and its performance characteristics determined by the [facility] Department of Pathology and Laboratory Medicine. It has not been cleared or approved by the FDA. The [facility] Department of Pathology and Laboratory Medicine is regulated under CLIA as qualified to perform high- complexity testing. This test is used for clinical purposes. It should not be regarded as investigational or for research. Performed By: #### CSA #### [facility] CLIA [id number] [address] ANES PROCEDURE NOTE Observed: 06/18/2024 12:21 PM Status: COMPLETED Source: [facility] HNO ID: [id number] Author: MARY LOZADA APRN.TRANSITION ASSISTANT Service: ? Author Type: Nurse Tungsten Tender Type: Anesthesia Procedure Notes Filed: 06/18/2024 12:21 Note Text: ANESTHESIOLOGY PROCEDURE NOTE Airway General Information Procedure Start Time/Medication Administration: 06/18/2024 12:14 PM Procedure End Time: 06/18/2024 12:14 PM Patient location during procedure: OR Timeout Performed Pre-procedure: timeout performed Consent Obtained: Yes Patient identity confirmed: arm band and patient Staffing Anesthesiologist: Jessica Luu MD TRANSITION ASSISTANT: Mary Lozada APRN.TRANSITION ASSISTANT Performed by: JENI Indications and Patient Condition [...] no Airway not difficult SIGNATURE: Mary Enamorado APRN.TRANSITION ASSISTANT PATIENT NAME: Brina Machado Jr. DATE: June 18, 2024 TIME: 12:21 PM CSN: [id number] OPERATIVE NO Observed: 06/18/2024 12:08 PM Status: COMPLETED Source: [facility] HNO ID: [id number] Author: RADHA READ MD Service: Urology Author Type: Physician Type: Operative Report Filed: 06/18/2024 12:47 Note Text: [facility] OPERATIVE NOTE/REPORT DETAIL NAME: Brina Machado JrGunner Surgery/Procedure Date: 06/18/2024 Procedure(s): Cystoscopy, right ureteroscopy with laser lithotripsy, ureteral stone basket extraction, right ureteral stent removal Pre-Op/Pre-Procedure Diagnosis: Active Hospital Problems Diagnosis Date Noted Right ureteral stone 05/28/2024 Post-Op/Post-Procedure Diagnosis: same Surgeon(s)/Proceduralist(s) and Medical Technicians(s): Surgeons and Role: * Radha Read MD [...] critical portions of the procedure with the housing assistant. Dr. Read was immediately available for all other portions of the procedure. LOG ID: [id number] Incision/Procedure Start Time: 12:20 PM Incision Close/Procedure End Time: 12:39 PM SIGNATURE: Radha Read MD PATIENT NAME: Brina Machado Jr. DATE: June 18, 2024 TIME: 12:46 PM HISTORY PHYSICAL Observed: 06/18/2024 11:37 AM Status: COMPLETED [facility] [id number] Author: RADHA READ MD Service: Urology Author Type: Physician Type: H&P Filed: 06/18/2024 11:37 Note Text: [facility] SURGICAL HISTORY AND [...] Diagnosis Date COPD (chronic obstructive pulmonary disease) ([facility]) sizer hand - Ana Hardin LOSS PREVENTION ASSOCIATE - [facility], [place], [place] Hematuria was also dealing with kidney stones Kidney stones Prostate cancer ([facility]) 03/04/2013 PAST SURGICAL HISTORY Procedure Laterality Date [...] Observed: 06/18/2024 11:07 AM Status: COMPLETED Source: [facility] HNO ID: [id number] Author: JESSICA LUU MD Service: Anesthesiology Author [...] and consent discussed: yes. Patient / Responsible Green Party agrees to proceed: yes Patient / Surrogate [...] June 18, 2024 TIME: 11:07 AM CSN: [id number] CNPN Observed: 06/18/2024 12:00 AM Status: COMPLETED Source: [facility] Telephone (MRPRAD) BRINA MACHADO JR. ([id number]) 1950 M Date Time Provider Department 06/18/24 [...] Visit Diagnosis:Right ureteral stone [N20.1] Order(s): KIDNEY/BLADDER [[id number]] Order #: [id number] FUTURE Prescriptions as of 06/19/2024 - oxyCODONE-acetaminophen [...] Observed: 06/15/2024 3:46 PM Status: COMPLETED Source: [facility] HNO ID: [id number] Author: NICKY TODD, RN Service: Nursing Author [...] directed. Bring copy of Living Will/Power of Pit Hand. Do not smoke or chew. If you [...] the Surgery Center. UPON ARRIVAL: Access to [facility] (the [facility]) is located on [address] Chain Forming Machine Operator parking is available for your [...] Observed: 06/15/2024 8:27 AM Status: COMPLETED Source: [facility] HNO ID: [id number] Author: NONA JASON APRN.DIAMOND Service: ? Author [...] Observed: 06/15/2024 8:26 AM Status: COMPLETED Source: [facility] HNO ID: [id number] Author: NONA JASON APRN.CRANE OPERATOR CAB Service: ? Author Type: Nurse Practitioner Type: Anesthesia PreOp Filed: 06/15/2024 08:27 Note Text: 74 yo male with HX: COPD, kidney stones, prostate cancer, hematuria CNPN Observed: 06/13/2024 12:00 AM Status: COMPLETED Source: [facility] Telephone (URCANT) BRINA MACHADO JR. ([id number]) 1950 M Date Time Provider Department 06/13/24 [...] 06/11/2024 10:3 8 AM Status: F Source: [facility] Order Comment: Specimen Type : URINE SPECIMEN Ordering Facility: [facility] Address: [address] [place] [address] TYPE CODE TESTS RESULT OUT OF RANGE REFERENCE UNITS LAB 5778-6(LOINC) Color Ur Pleasants Abnormal Yellow LAB 53493-2(LOINC) Clarity Spec Turbid Abnormal Clear LAB 5792-7(LOINC) [...] HPF >20 /HPF Abnormal 0-5 /HPF LAB 44011-0(LOINC) RBC #/area UrnS HPF >20 /HPF Abnormal 0-2 /HPF LAB [id number] BACTERIA UL 5048.9 High Negative uL LAB 5787-7(LOINC) Epi Cells #/area UrnS HPF None Seen /HPF LAB 5796-8(LOINC) Hyaline Casts #/area UrnS LPF 4-10 /LPF Abnormal 0 /LPF LAB 1CAOX CALCIUM OXALATE CRYSTALS (UA) Moderate Abnormal None Seen /HPF Performed By: #### 630-4, 24 356-8 #### [facility] CLIA [id number] [address] [place] [address] [place] BACTERIA UR CULT Observed: 06/11/2024 10:38 AM Status: F Source: [facility] ORGANISM ID: 1 >=100,000 CFU/ml Escherichia [...] Performed By: #### 630-4, 24 356-8 #### [facility] CLIA [id number] [address] [place], [place] [address] [address] [place] CBC PNL BLD AUTO Collected: 5 10:35 AM Status: F Source: [facility] Order Comment: Specimen Type : BLOOD SPECIMEN Ordering Facility: [facility] Address: [address] [place] [address] TYPE CODE TESTS RESULT OUT OF RANGE REFERENCE UNITS LAB 6690-2([facility]) WBC # Bld Auto 12.02 High 3.70-11.00 k/uL LAB 789-8(LOINC) RBC # Bld Auto 4.62 4.20-6.00 m/uL LAB 718-7(LOINC) Hgb Bld-mCnc 14.4 13.0-17.0 g/dL LAB 4544-3([facility]) Hct VFr Bld Auto 43.2 39.0-51.0 % LAB 787-2(INC) MCV RBC Auto 93.5 80.0-100.0 fL LAB 785-6([facility]) MCH RBC Qn Auto 31.2 26.0-34.0 pg LAB 786-4([facility]) MCHC RBC Auto-mCnc 33.3 30.5-36.0 g/dL LAB 08890-7([facility]) RDW RBC-Rto 13.0 11.5-15.0 % LAB 777-3([facility]) Platelet # Bld Auto 390 150-400 k/uL LAB 97756-1([facility]) PMV Bld Auto 9.6 9.0-12.7 fL LAB 771-6([facility]) nRBC # Bld Auto <0.01 <0.01 k/uL Performed By: #### 70038-7 # ### [facility] CLIA [id number] [address] [place] [address] [place] BAS METAB 2000 PNL SERPL Collected: 01/2025 10:35 AM Status: F Source: [facility] Order Comment: Specimen Type : BLOOD SPECIMEN Ordering Facility: [facility] Address: [address] [place], [place] [address] TYPE CODE TESTS RESULT OUT OF RANGE REFERENCE UNITS LAB 2345-7([facility]) Glucose SerPl-mCnc 107 High 74-99 mg/dL Result Comment: The [place] Diabetes Association (ADA) provides guidance for cutoff [...] Standards of Medical Care in Diabetes 2016, [place] Diabetes Association. Diabetes Care. 2016.39(Suppl 1). LAB 3094-0(LOINC) BUN SerPl-mCnc 20 9-24 mg/ dL LAB 2160-0(LOINC) Creat SerPl-mCnc 0.90 0.73-1.22 mg/dL LAB 2951-2(LOINC) Sodium SerPl-sCnc 140 136-144 mmol/L LAB 2823-3(LOINC) Potassium SerPl-sCnc 4.3 3.7-5.1 mmol/L LAB 2075-0(LOINC) Chloride SerPl-sCnc 103 98-107 mmol/L LAB 2028-9(LOINC) CO2 SerPl-sCnc 26 22-30 mmo l/L LAB 49816-7(LOINC) Anion Gap SerPl-sCnc 11 8-15 mmol/L LAB 80339-4(LOINC) Calcium SerPl-mCnc 9.6 8.5-10.2 mg/dL LAB 90504-9(LOINC) Creatinine + eGFR Pnl SerPlBld 90 >=60 [...] accurately reflect actual GFR. Performed By: #### 43426-1 # ### [facility] [id number] [address] [place] [address] [place] CNPN Observed: 06/11/2024 12:00 AM Status: COMPLETED Source: [facility] Telephone (URCANT) BRINA MACHADO JR. ([id number]) 1950 [place] Date Time Provider Department 06/11/24 [...] Observed: 06/05/2024 12:00 AM Status: COMPLETED Source: [facility] Telephone (URCANT) BRINA MACHADO JR. ([id number]) 1950 M Date Time Provider Department 06/05/24 [...] Fully Assessed Reason for Visit: Patient Question [1030] Prescriptions as of 06/05/2024 - cephALEXin (KEFLEX) [...] Observed: 05/30/2024 6:30 PM Status: COMPLETED Source: [facility] HNO ID: [id number] Author: RAFAEL BARRAGAN PA Service: Hospital Medicine Author Type: Physician Medical Technicians Type: Progress Notes Filed: 06/02/2024 15:42 Note Text: Documentation Query Please clarify status of hydronephrosis Hydronephrosis Ruled In This document will become part of the patient's medical record. CONSULT PROG Observed: 05/30/2024 3:25 PM Status: COMPLETED Source: [facility] HNO ID: [id number] Author: RADHA READ MD Service: Urology Author Type: Physician Type: Consult Progress Note Filed: 05/30/2024 15:27 Note Text: [facility] POST OP PROGRESS [...] Observed: 05/30/2024 2:07 PM Status: COMPLETED Source: [facility] HNO ID: [id number] Author: SANTOS DOOLEY MD Service: Hospital Medicine Author Type: Physician Medical Technicians Type: Discharge Summary Filed: 05/30/2024 17:55 Note [...] management. His urine cultures including one from [facility] were negative, and urology recommended discharge on [...] - Urine cultures negative (including culture from [facility]). Urology recommended empiric cephalosporin at discharge, so [...] of Care Critical Issues: SPECIALIST FOLLOW-UP: Urology NROMAN MEDICATION CHANGES: antibiotic LABS AND PROCEDURES PENDING [...] Your Medications [facility] [address] [place] [id number] [facility] - [phone] [facility] [address] [facility] [address] cephALEXin 500 mg capsule oxyCODONE IR 5 [...] 0 13% Observations (365d) 1 10% Facility [facility] -9% Discharge Disposition HOME -9% ED visits (365d) 0 -8% Albumin (Avg) N/A -8% Diagnosis Count 8 -6% RDW (Max) 12.8 -6% Macey Mcguire 4 Time of Care: 32 Minutes SIGNATURE: SANIYA Saha PAGER/CONTACT #: Primary service DATE: May 30, 2024 TIME: 2:07 PM CBC PNL BLD AUTO Collected: 05/30/2024 4:31 AM Statu s: F Source: [facility] Order Comment: Specimen Type : BLOOD SPECIMEN Ordering Facility: [facility] Address: [address] [place], [place] [address] [address] TYPE CODE TESTS RESULT OUT OF RANGE [...] MCHC RBC Auto-mCnc 34.7 30.5-36.0 g/dL LAB 69777-7([facility]) RDW RBC-Rto 12.2 11.5-15.0 % LAB 777-3(INC) Platelet # Bld Auto 263 150-400 k/uL LAB 35246-2([facility]) PMV Bld Auto 9.4 9.0-12.7 fL LAB 771-6([facility]) nRBC # Bld Auto <0.01 <0.01 k/uL Performed By: #### 76463-3 # ### [facility] CLIA [id number] [address] [place] [address] [place] BAS METAB 2000 PNL SERPL Collected: 4:31 AM Status: F Source: [facility] Order Comment: Specimen Type : BLOOD SPECIMEN Ordering Facility: [facility] Address: [address] [place] [address] TYPE CODE TESTS RESULT OUT OF RANGE REFERENCE UNITS LAB 2345-7([facility]) Glucose SerPl-mCnc 99 70-100 mg/dL Result Comment: The [place] Diabetes Association (ADA) provides guidance for cutoff [...] Standards of Medical Care in Diabetes 2016, [place] Diabetes Association. Diabetes Care. 2016.39(Suppl 1). Results [...] CO2 SerPl-sCnc 31 21-32 mmo l/L LAB 95631-5(LOINC) Anion Gap SerPl-sCnc 5 5-16 mmol/L LAB 67541-0(LOINC) Calcium SerPl-mCnc 9.1 8.5-10.5 mg/dL LAB 67982-2(LOINC) Creatinine + eGFR Pnl SerPlBld 94 >=60 [...] accurately reflect actual GFR. Performed By: #### 51269-9 # ### [facility] CLIA [id number] [facility] [employer] (formerly [employer] [place] [address] [place] PROGRESS Observed: 05/29/2024 1:36 PM Status: COMPLETED Source: [facility] HNO ID: [id number] Author: JOSH BRADY APRN.DIAMOND Service: Hospital Medicine [...] use and COPD , who traveled to [place], just returned 2 weeks ago. Since returning [...] appropriate 05/28/24 0945 activity - mobilize patient (la,mo) Code Status: Code Status: Full Code Plan [...] Observed: 05/29/2024 12:59 PM Status: COMPLETED Source: [facility] HNO ID: [id number] Author: TOLIN, KADE, RN Service: Care Management Author Type: Registered Nurse Type: Care Mgt Progress Note Filed: 05/30/2024 14:24 Note Text: CARE MANAGEMENT DISCHARGE NOTE SERVICE DATE: May 29, 2024 SERVICE TIME: 1259 Admission Date: 05/28/2024 LOS: 0 days Discharge Arrangement Discharge Arrangement: Home with Self Care Services Arranged Provider Name: Dr. Covington Phone: [phone] Caregiver Assessment Caregiver is ready, willing and [...] yesterday d/t waiting for urine culture from [facility]. Plan for d/c today. SIGNATURE: Kade Richardson RN PATIENT NAME: Brina Machado Jr. DATE: May 29, 2024 TIME: 12:59 PM CONSULT PROG Observed: 05/29/2024 9:06 AM Status: COMPLETED [facility] [id number] Author: RADHA READ MD Service: Urology Author Type: Nurse Practitioner Type: Consult Progress Note Filed: 05/29/2024 12:10 Note Text: Attestation signed by Radha Read MD at 05/29/2024 12:10 PM Staff Urologist Note I have personally performed a wlnm-bj-ygor assessment of the patient and have reviewed [...] NAME: Brina Machado Jr. TIME: 12:07 PM [facility] UROLOGICAL AND KIDNEY [facility] UROLOGY CONSULT PROGRESS NOTE PATIENT: Brina Machado [...] PO antibiotics. Prostate cancer (HCC) Hx of [place] 4+3 equal 7 prostate cancer. Previously seen [...] 05/28/2024 IMPRESSION: Limited study. No calculi identified. Color Shop Helper: PSCB Transcribe Date/Time: May 28 2024 11:33A [...] Total (mg/dL) Date Value 05/29/2024 9.0 Specific [place], Ur (no units) Date Value 02/19/2016 1.013 [...] documenting in the medical record. Chun Cadet APRN.[facility] Urology Nurse Practitioner [phone] SERVICE DATE: May 29, 2024 SERVICE TIME: 9:09 AM CASE MGT INMINERVA LIZ Observed: 05/29/2024 8:50 AM Status: COMPLETED Source: [facility] ID: [id number] Author: KADE RICHARDSON RN Service: Care Management Author Type: Registered Nurse Type: Care Mgt Initial Assessment Filed: 05/29/2024 10:19 Note Text: CARE MANAGEMENT: ASSESSMENT AND DISCHARGE PLAN SERVICE DATE: May 29, 2024 SERVICE TIME: 0850 PCP: No primary care provider on file. Primary Contact: Extended Emergency Contact Information Primary Emergency Contact: Maira Nathan Address: [address] [address] Relation: Spouse Secondary Emergency Contact: May Caba Mobile Relation: Friend Admission Status: Observation Insurance Provider: MEDICARE A AND B Discharge Planning requested by: Per Department Practice Potential Transition Plans Home Advance Directives Current Advance Directive: None Mold Builder Attempted to Assist with AD Completion: Yes [...] Be able to go home, General wellness [place] of Choice Explained: Are you interested in [...] were you homeless or living in a senior care (including now)?: No Utilities In the past 12 months has the electric, gas, oil, or water company threatened to shut off services in your home?: No Social Information Financial Resources: Employed SIGNATURE: Kade Richardson RN PATIENT NAME: Brina Machado Jr. DATE: May 29, 2024 TIME: 10:15 AM BACTERIA UR CULT Observed: 05/29/2024 6:36 AM Status: F Source: [facility] CULTURE, URINE: No growth (<1,000 CFU/ml) Performed By: #### 630-4 ### # [facility] CLIA [id number] [address] [place] [address] STATES OF [facility] CBC PNL BLD AUTO Collected: 05/29/2024 4:55 AM Statu s: F Source: [facility] Order Comment: Specimen Type : BLOOD SPECIMEN Ordering Facility: [facility] Address: [address] [place] [address] TYPE CODE TESTS RESULT OUT OF RANGE [...] MCHC RBC Auto-mCnc 33.5 30.5-36.0 g/dL LAB 67871-7(LOINC) RDW RBC-Rto 12.8 11.5-15.0 % LAB 777-3(LOINC) Platelet # Bld Auto 258 150-400 k/uL LAB 16528-9(LOINC) PMV Bld Auto 10.0 9.0-12.7 fL LAB 771-6(LOINC) nRBC # Bld Auto <0.01 <0.01 k/uL Performed By: #### 35588-0 # ### [facility] CLIA [id number] [address] [place] [id number] [place] BAS METAB 2000 PNL SERPL Collected: 4:55 AM Status: F Source: [facility] Order Comment: Specimen Type : BLOOD SPECIMEN Ordering Facility: [facility] Address: [facility] [place] [address] TYPE CODE TESTS RESULT OUT OF RANGE REFERENCE UNITS LAB 2345-7(LOINC) Glucose SerPl-mCnc 114 High 70-100 mg/dL Result Comment: The [place] Diabetes Association (ADA) provides guidance for cutoff [...] Standards of Medical Care in Diabetes 2016, [place] Diabetes Association. Diabetes Care. 2016.39(Suppl 1). Results [...] CO2 SerPl-sCnc 29 21-32 mmo l/L LAB 64977-4(LOINC) Anion Gap SerPl-sCnc 7 5-16 mmol/L LAB 22931-9(LOINC) Calcium SerPl-mCnc 9.0 8.5-10.5 mg/dL LAB 58534-9(LOINC) Creatinine + eGFR Pnl SerPlBld 92 >=60 [...] accurately reflect actual GFR. Performed By: #### 16113-5 # ### [facility] CLIA [id number] [address] [place] [address] OF [facility] NURSING PROG Observed: 05/28/2024 3:39 PM Status: COMPLETED Source: [facility] HNO ID: [id number] Author: SAMMIE GARCÍA RN Service: Nursing Author Type: Registered Nurse Type: Nursing Progress Note Filed: 05/28/2024 15:39 Note Text: Patient arrived back from PACU at this time. ANES POSTPROC EVAL Observed: 05/28/2024 2:53 PM Status: COMPLETED Source: [facility] HNO ID: [id number] Author: FREYA NEIL DO Service: Anesthesiology Author [...] May 28, 2024 TIME: 2:53 PM CSN: [id number] ANES PROCEDURE NOTE Observed: 05/28/2024 2:25 PM Status: COMPLETED Source: [facility] HNO ID: [id number] Author: ANDREY ROSARIO AA Service: ? Author Type: Refining Equipment Operator Type: Anesthesia Procedure Notes Filed: 05/28/2024 14:26 [...] May 28, 2024 TIME: 2:25 PM CSN: [id number] OPERATIVE NO Observed: 05/28/2024 2:09 PM Status: COMPLETED Source: [facility] HNO ID: [id number] Author: RADHA READ MD Service: Urology Author Type: Physician Type: Operative Report Filed: 05/28/2024 14:36 Note Text: [facility] OPERATIVE NOTE/REPORT DETAIL NAME: Brina Machado Jr. Surgery/Procedure Date: 05/28/2024 Procedure(s): Cystoscopy, right ureteral stent insertion Pre-Op/Pre-Procedure Diagnosis: Right ureteral calculus, UTI Post-Op/Post-Procedure Diagnosis: same Surgeon(s)/Proceduralist(s) and Medical Technicians(s): Surgeons and Role: * Radha Read MD [...] fashion. A time-out was performed. A 22 Bengali cystoscope was passed into the urinary bladder. [...] critical portions of the procedure with the housing assistant. Dr. Read was immediately available for all other portions of the procedure. LOG ID: [id number] Incision/Procedure Start Time: 2:22 PM Incision Close/Procedure End Time: 2:25 PM SIGNATURE: Radha Read MD PATIENT NAME: Brina Machado Jr. DATE: May 28, 2024 TIME: 2:35 PM NURSING PROG Observed: 05/28/2024 1:36 PM Status: COMPLETED Source: [facility] HNO ID: [id number] Author: SAMMIE GARCÍA RN Service: Nursing Author Type: Registered Nurse Type: Nursing Progress Note Filed: 05/28/2024 13:36 Note Text: Patient off the floor for surgery at this time, and son are at bedside. ANES PRE-OP Observed: 05/28/2024 1:26 PM Status: COMPLETED Source: [facility] HNO ID: [id number] Author: FREYA NEIL DO Service: Anesthesiology Author [...] and consent discussed: yes. Patient / Responsible Green Party agrees to proceed: yes Patient / Surrogate [...] May 28, 2024 TIME: 1:26 PM CSN: [id number] ECG COMPLETE Observed: 05/28/2024 12:28 PM Status: F Source: [facility] Ventricular Rate : 90 BPM Atrial Rate : 90 BPM P-R Interval : 152 ms QRS Duration : 84 ms Q-T Interval : 342 ms QTC Calculation(Bazett) : 418 ms Calculated P Easton : 81 degrees Calculated R Easton : 81 degrees Calculated T Easton : 83 degrees Sinus rhythm with marked sinus arrhythmia Otherwise normal ECG No previous ECGs available Confirmed by SANTOS GAMEZ MD ([id number]) on 06/06/2024 7:49:45 AM NAME : BRINA MACHADO PID : [id number] : 1950 Gender : Male Race : ORD : [id number] Procedure Date : May 28 2024 12:28:50 Edit Date : Jun 06 2024 07:49:50 Diagnosis: Sinus rhythm with marked sinus arrhythmia Otherwise normal ECG No previous ECGs available Confirmed by SANTOS GAMEZ MD ([id number]) on 06/06/2024 7:49:45 AM Test Reason : RT Location : 23 : SURG 2M277 Overread By : SANTOS GAMEZ MD Edited By : SANTOS GAMEZ MD Referred By : [place] Acquired by : MARIELA GARCIA NURSING PROG Observed: 05/28/2024 11:52 AM Status: COMPLETED Source: [facility] HNO ID: [id number] Author: SAMMIE GARCÍA, RN Service: Nursing Author Type: Registered Nurse Type: Nursing Progress Note Filed: 05/28/2024 11:52 Note Text: PACU called to get report on patient., advised that he is add-on case, but that it could be earlier. Will update patient. XR ABDOMEN 1V SUPINE Observed: 10:20 AM Status: F Source: [facility] * * *Final Report* * * [...] prosthesis. IMPRESSION: Limited study. No calculi identified. Color Shop Helper[facility] Transcribe Date/Time: May 28 2024 11:33A Dictated by : MARLON CHUA MD This examination was interpreted and the report reviewed and electronically signed by: MARLON CHUA MD on May 28 2024 11:38AM EST [id number] HISTORY PHYSICAL Observed: 05/28/2024 10:11 AM Status: COMPLETED Source: [facility] HNO ID: [id number] Author: ALLA OCONNOR MD Service: Hospital Medicine Author Type: Physician Type: H&P Filed: 05/28/2024 10:29 Note Text: HISTORY AND PHYSICAL EXAMINATION PATIENT NAME: Brina Machado Jr. SERVICE DATE AND TIME: 05/28/2024 10:12 AM PRIMARY CARE PHYSICIAN: No primary care provider on file. CHIEF COMPLAINT: Generalized malaise since returning from [place] 2 weeks ago HPI: This is a 74 year old male with a PMH of state cancer requiring radical prostatectomy 2013, BPH, rectal spine surgery, history of tobacco use and COPD , who traveled to [place], just returned 2 weeks ago. Since returning [...] Observed: 05/28/2024 9:41 AM Status: COMPLETED Source: [facility] HNO ID: [id number] Author: RADHA READ MD Service: Urology Author Type: Nurse Practitioner Type: Consults Filed: 05/28/2024 13:49 Note Text: Attestation signed by Radha Read MD at 05/28/2024 1:49 PM Staff Urologist Note I have personally performed a hfug-ia-yyff assessment of the patient and have reviewed [...] Ta Mc Lito Christine TIME: 1:46 PM [facility] UROLOGY INITIAL CONSULT NOTE PATIENT: Brina Ta [...] prostatectomy with pelvic lymph node dissection 05/2013. [place] 4+3 equal 7.. No follow-up since. He [...] Calcium (mg/dL) Date Value 08/06/2015 9.0 Specific [place], Ur (no units) Date Value 02/19/2016 1.013 [...] documenting in the medical record. Chun Cadet APRN.[facility] Urology Nurse Practitioner [phone] SERVICE DATE: May 28, 2024 SERVICE TIME: 9:41 AM NURSING PROG Observed: 05/28/2024 9:34 AM Status: COMPLETED Source: [facility] HNO ID: [id number] Author: SAMMIE GARCÍA RN Service: Nursing Author Type: Registered Nurse Type: Nursing Progress Note Filed: 05/28/2024 09:35 Note Text: Patient arrived via EMS from [facility]. Patient is ambulatory to his bed- rates pain 2/10 at this time. Asking for something to drink- this nurse advised that orders will have to be checked in case there would be a procedure/testing that requires him to be NPO URINE CULTURE [CCL] Observed: 05/28/2024 4:30 AM Status: F Source: [facility] URCUL See Results Below See Below CULTURE, URINE NORMAL UROGENITAL ELOY <10,000 CFU/ml Normal urogenital eloy SOURCE: Urine (Nonspecific) [place] [address] Oswaldo Bowman III, M.D. [id number] SEND TO NO Performed By: #### [id number] ## ## [facility],[address] [place] [address] URINALYSIS Collected: 4:30 AM Status: F Source: [facility] TYPE CODE TESTS RESULT OUT OF RANGE [...] NC) Urobilinog NORM NORMAL: NORMAL LAB Sp [place](LOINC) Sp [place] 1.010 NORMAL: 1.010-1.030 LAB Nitrite(LOINC) Nitrite NEG [...] LAB Yeast(LOINC) Yeast NONE Performed By: #### [id number] ## ## [facility],[address] [place] [address] BACTERIA UR CULT Observed: 05/28/2024 4:30 AM Status: F Source: [facility] ORGANISM ID: 1 <10,000 CFU/ml Normal urogenital eloy Performed By: #### 630-4 ### # [facility] CLIA [id number] [address] [place] [address] OF [facility] CT ABDOMEN/PELVIS W Observed: 05/28/2024 12:31 AM Status: F Source: [address] [address] Patient: BRINA NATHAN JR Phone#: : 1950 Age: 74 Gender: M Pt. Type: ER Account: [id number] Location: 2 Ordering: DR. GREGORY BROWNE Exam Date: 05/28/2024/0:12 Family Phys: ESTEBAN COVINGTON Charge Code: 453921 Physician: Macoupin Order #: [id number] Dose#: 10.8 PROCEDURE: CT ABDOMEN/PELVIS WITH CONTRAST [...] 74 Gender: M Pt. Type: ER Account: [id number] Location: 052 Ordering: DR. GREGORY BROWNE Exam Date: 05/28/2024/0:12 Family Phys: ESTEBAN COVINGTON Charge Code: 082303 Physician: Macoupin Order #: [id number] Dose#: 10.8 BOWEL/MESENTERY: No bowel obstruction or [...] Observed: 05/28/2024 12:00 AM Status: COMPLETED Source: [facility] Telephone (MRPRAD) BRINA MACHADO JR. ([id number]) 1950 M Date Time Provider Department 2/24/25 RADHA READ MRPRAD During your visit today, we recorded the following information about you: Radha Read MD 05/28/2024 2:41 PM Signed Surgery: Cystoscopy and pyelograms, right ureteroscopy with laser lithotripsy, possible ureteral stent removal Duration: 1 hour(s) Surgeon: Radha Read MD Location: [facility] Anesthesia: General Fluoroscopy: Yes Special equipment: [...] [N20.1] Order(s):COMPLETE BLOOD COUNT [SQCBC] Order #: [id number] FUTURE BASIC METABOLIC PANEL [SQBMP] Order #: [id number] FUTURE URINALYSIS (WITH MICROSCOPIC) WITH CULTURE IF INDICATED [SQUACII] Order #: [id number] FUTURE Prescriptions as of 05/31/2024 - cephALEXin [...] Observed: 05/06 11:27 PM Status: F Source: [facility] INFLUENZA A NEGATIVE INFLUENZA B NEGATIVE INTERNAL [...] DAYS. RESULT CRITICAL? NO Performed By: #### [id number] ## ## [place] [address] TROPONIN Collected: 11:05 PM Status: F Source: [facility] TYPE CODE TESTS RESULT OUT OF RANGE REFERENCE UNITS LAB HS TROPONIN(LOINC) HS TROPONIN 6.8 0.0 - 76.2 pg/mL Performed By: #### [id number] ## ## [place] [address] CBC + DIFF Collected: 5 11:05 PM Status: F Source: [facility] TYPE CODE TESTS RESULT OUT OF RANGE [...] High 1.50 - 7.10 x10EE3 /UL LAB [place] #(LOINC) [place] # 1.81 High 0.20 - 1.00 x10EE3 /UL LAB EO #(LOINC) EO # 0.13 0.00 - 0.50 x10EE3/U L LAB Baso #(LOINC) Baso # 0.04 0.00 - 0.10 x10EE3 /UL LAB MANUAL DIFF(LOINC) MANUAL DIFF N/A LAB MORPHOLOGY(JAMES NC) MORPHOLOGY N/A Performed By: #### [id number] ## ## [address] [address] LIPASE Collected: 5 11:05 PM Status: F Source: [facility] TYPE CODE TESTS RESULT OUT OF RANGE REFERENCE UNITS LAB LIPASE(INC) LIPASE 20.0 15.0 - 78.0 U/L Result Comment: *PLEASE NOTE THAT RANGES FOR LIPASE HAVE CHANGED OF 04/01/23 DUE TO AN ASSAY UPDATE BY THE CAR SWEEPER.THE NEW ASSAY RANGE IS 6-250 U/L, WITH A REFERENCE RANGE OF 16-77 U/L. Performed By: #### [id number] ## ## [address] [address] CMP WITH EGFR Collected: 5 11:05 PM Status: F Source: [facility] TYPE CODE TESTS RESULT OUT OF RANGE [...] OF AGE AND OLDER. Performed By: #### [id number] ## ## [facility],[address] [place] [address] ED NURSES CLINICAL NOTE Observed: 2024 7:28 PM Status: F Source: [facility] Nurse Narrative [place] [address] [id number] 05/27/2024 Patient: BRINA NATHAN Sex: Male : 1950 Age: 74y Primary Insurance: MEDICARE OUTPATIENT Policy Number: [id number] Subscriber: Other Secondary Insurance: [employer] MEDICARE SUPPLEMEN Policy Number: [id number] Group Number: PLAN G Subscriber: Other Disposition: Transfer to [facility] Disposition Decision Time: 03:27 05/28/2024 Departure Time: [...] (02:55 05/28/2024). Called for a possible transfer. ([facility]). -- 02:57 05/28/24 TIMMY Armstrong 4 of 5 Nurse Narrative 03:17 05/28/24. cefTRIAXone (Rocephin) IVPB 1gm/50ml NS: Medication Discontinued. IV infused. Total amount infused: 50 mL. IV patency established. IV site checked: no pain, redness, or swelling. IV flushed thoroughly post-medication administration. -- 04:47 05/28/24 TIMMY Shukla R.N. 03:25 05/28/24. Transfer request (03:25 05/28/2024). ([facility] called to speak with dr. browne). -- 03:25 05/28/24 TIMMY Armstrong 04:53 05/28/24. Potassium Chloride PO 20 mEq given. Allergies verified and confirmed 5 rights. Information reviewed with patient including reason for taking this medication. Verbalizes understanding. -- 04:55 05/28/24 TIMMY Shukla R.N. 05:28 05/28/24. Transfer request (05:28 05/28/2024). ([facility] Bed # 2- [facility] 277-2 Nurse to Nurse is [phone]). -- 05:38 05/28/24 TIMMY Armstrong 05:38 05/28/24. Transfer request (05:38 05/28/2024). (called [facility] and set up transport to [facility]). -- 05:38 05/28/24 TIMMY Armstrong 07:08 05/28/24. [...] 05/28/2024. Condition at departure: improved. Transferred to [facility]. Face Sheet, physician record and nurse record provided to EMS and transfer facility via paper. Transported via stretcher by EMS with IV ([facility]). Report was given to a nurse [...] Jimenez R.N. 05/28/24 08:31:23 EST) Generated by [facility] 5 of 5 ED PHYSICIAN CLINICAL REPORT Observed: 0 05/27/2024 7:28 PM Status: F Source: [facility] Narrative Physician Clinical Narrative [address] [address] [id number] 05/27/2024 Patient: BRINA NATHAN Sex: Male : 1950 Age: 74y Primary Insurance: MEDICARE OUTPATIENT Policy Number: [id number] Subscriber: Other Secondary Insurance: [employer] MEDICARE SUPPLEMEN Policy Number: [id number] Group Number: PLAN G Subscriber: Other Disposition: Transfer to [facility] Disposition Decision Time: 03:27 05/28/2024 Measurements Wt: [...] high normal EST 1.81 x10/UL 05/27/2024 23:25 [place] # 0.20 - 1.00 Final Above high [...] 78.0 Final UPDATE BY THE 23:50 EST CAR SWEEPER.THE NEW ASSAY RANGE IS 6-250 U/L, WITH [...] from transfer. Spoke with Dr. Maza from [facility] who accepted patient for transfer, he is pending a bed to be available for transport at this time.). Disposition: Disposition Decision Time: 03:27 05/28/2024. Patient transferred to [facility]. Transferred in stable condition. Condition: stable. CLINICAL IMPRESSION Vomiting with nausea. Not intractable or bilious. Generalized abdominal pain. Ureterolithiasis (single stone) in the right ureter with renal colic, acute pyelonephritis and urinary tract infection. No hydronephrosis or hematuria. Probable acute pyelonephritis. (Electronically signed by Noelle Browne D.O. 05/28/24 04:10:28 EST) Generated by [facility] 12 of 12 ED PHYSICIAN DISCHARGE REPORT Observed: 05/27/2024 7:28 PM Status: F Source: [facility] Discharge Instructions Discharge Summary [address] [place] [address] [id number] 05/27/2024 Patient: BRINA NATHAN Sex: Male : 1950 Age: 74y Thank you for visiting [facility]. You have been evaluated today by Noelle Browne D.O. for the following condition(s): Principal Diagnosis Vomiting with nausea. Not intractable or bilious. Generalized abdominal pain. Ureterolithiasis (single stone) in the right ureter with renal colic, acute pyelonephritis and urinary tract infection. No hydronephrosis or hematuria. Probable acute pyelonephritis. Patient Signature Facility Displayer Date/Time General Instructions with ExitWriter [address] [address] [id number] 05/27/2024 Patient: BRINA NATHAN Sex: Male : 1950 Age: 74y 1 of 2 Discharge Instructions Thank you for visiting [facility]. You have been evaluated today by Noelle Browne D.O. for the following condition(s): Principal Diagnosis Vomiting with nausea. Not intractable or bilious. Generalized abdominal pain. Ureterolithiasis (single stone) in the right ureter with renal colic, acute pyelonephritis and urinary tract infection. No hydronephrosis or hematuria. Probable acute pyelonephritis. 2 of 2 ED MED ADMINISTRATION DETAIL Observed: 0 05/27/2024 7:28 PM Status: F Source: [facility] Motor Grader Rough Grade Medication Administration Record [address] [address] [id number] 05/27/2024 Patient: BRINA NATHAN Sex: Male : [...] 23:20 Jonathan Shukla R.N. 1 of 3 Motor Grader Rough Grade Medication Ordered Medication Administration Date/Time IV NS [...] 23:44 Jonathan Shukla R.N. 2 of 3 Motor Grader Rough Grade Medication Ordered Medication Administration Date/Time cefTRIAXone 02:42 [...] ONLY) Observed: 7:28 PM Status: F Source: [facility] Order Sheet Order Sheet [address] [address] [id number] 05/27/2024 Patient: BRINA NATHAN Sex: Male : [...] x1) Noelle Browne D.O. 05/28/2024 05/28/2024 Jonathan Groves R.N. R.N. Reason for ordering with alerts: [...] Jonathan Hopkins Charles Wilbur, D.O. R.NGunner R.NGunner Inspector Outside Production 23:13 05/27/2024 23:57 05/27/2024 23:57 05/27/2024 Jonathan Hopkins Charles Wilbur, D.O. R.NGunner RGunnerNGunner [Electronically signed by Noelle Browne D.O. (05/28/2024 04:10 EST)] [Electronically signed by Noelle Browne D.O. (05/28/2024 04:47 EST)] 4 of 4 ED VISIT SUMMARY Observed: 05/27/2024 7:28 PM Status: F Source: [facility] Visit Overview Visit Overview [address] [address] [id number] 05/27/2024 Patient: BRINA NATHAN Sex: Male : [...] SHEET Observed: 7:28 PM Status: F Source: [facility] Vitals Vital Sign Flow Sheet [address] [address] [id number] 05/27/2024 Patient: BRINA NATHAN Sex: Male : [...] Observed: 05/27/2024 7:28 PM Status: F Source: [address] [place] [address] [id number] 05/27/2024 Patient: BRINA NATHAN Sex: Male : 1950 Age: 74y Facility Professional Category Item Description Code Code Quantity Fee Total Drugs Normal Saline 060843 1 $0.00 $0.00 1000cc (563579) Nurse/E/M EMERGENCY 681551 1 $0.00 $0.00 DEPT VISIT HIGH SEVERITYFUNCJ (19399-72) Nurse/IV/IM/Infusions Drip/IVPB initial 223908 1 $0.00 $0.00 (37764) Nurse/IV/IM/Infusions Drip/IVPB seq 278352 1 $0.00 $0.00 (01501) Nurse/IV/IM/Infusions Hydration 602777 1 $0.00 $0.00 additional hour (68435) Nurse/IV/IM/Infusions IVP additional 648507 2 $0.00 $0.00 push (11158) Grand $0.00 Total Providers 1 of 2 [facility] Noelle Browne D.O. Chief Complaint VOMITING. Principal [...] NAME / CODE REACTION SEVERITY SOURCE Drug Class/240016436(SNOMED CT) NO KNOWN ALLERGIES [facility] Miscellaneous Allergy/247287601([facility] ED CT) No Known Drug Allergies Moderate (Severity Modifier) (Qualifier Value) [facility] ENCOUNTERS ADMIT/DISCHARGE ACCOUNT NUMBER ADMITTING ENCOUNTER CLASS LOCATION SOURCE 11/14/2024 [id number] Ambulatory [id number] ilding:URCAN T [facility] 08/02/2024 [id number] Ambulatory [facility]WOR2 [facility] 08/02/2024/08/03/19 [id number] [facility] 08/02/2024/08/03/19 [id number] Ambulatory [id number] ilding:URCA5 22 [facility] 07/16/2024/07/17/19 [id number] [facility] 06/18/2024/06/19/19 [id number] JACEK, ROSADEEJACQUIE Ambulatory [id number] ilding:MRORR oom: MRORPLBed: 05 [facility] 06/11/2024/06/12/19 [id number] [facility] 05/28/2024 [id number] TOBY MAZA Inpatient Encounter [id number] ildinMRoo m: [id number]: [facility] 05/27/2024/05/28/19 [id number] NOELLE BROWNE DO Emergency Buildin Room: ERBed: [address] [place] [address] PAYERS ENCOUNTER GUARANTOR PAYER SUBSCRIBER SOURCE 11/14/2024 Primary Insurance:MEDICARE A AND BPolicy Number: [id number] Date:9409-35-84Ypzc Name:Marcello MACHADO JR.: [id number] [place] [address] 11/14/2024 Secondary Insurance:AET[employer] MEDICARE SUPPLEMENTPolicy Number: [id number] Date:0644-41-86Vkog Name:Radha MACHADO JR.: [id number] [place] [address] 08/02/2024 Primary Insurance:MEDICARE A AND BPolicy Number: [id number] Date:5055-18-74Wwjr Name:Marcello MACHADO JR.: [id number] [address] [facility] 08/02/2024 Secondary Insurance:AET[employer] MEDICARE SUPPLEMENTPolicy Number: [id number] Date:8558-86-17Nenn Name:Radha MACHADO JR.: [id number] [address] [facility] 08/02/2024 Primary Insurance:MEDICARE A AND BPolicy Number: [id number] Date:4359-16-12Qvkm Name:Marcello MACHADO JR.: [id number] [address] [facility] 08/02/2024 Secondary Insurance:AETNA MEDICARE SUPPLEMENTPolicy Number: [id number] Date:3667-77-32Doir Name:Radha MACHADO JR.: [id number] [place] [address] 08/02/2024 Primary Insurance:MEDICARE A AND BPolicy Number: [id number] Date:9237-97-38Onxy Name:Marcello MACHADO JR.: [id number] [address] [facility] 08/02/2024 Secondary Insurance:AET[employer] MEDICARE SUPPLEMENTPolicy Number: [id number] Date:6292-61-32Rffp Name:Radha MACHADO JR.: [id number] [address] [facility] 07/16/2024 Primary Insurance:MEDICARE A AND BPolicy Number: [id number] Date:8662-94-35Ejjb Name:Marcello MACHADO JR.: [id number] [address] [facility] 07/16/2024 Secondary Insurance:AET[employer] MEDICARE SUPPLEMENTPolicy Number: [id number] Date:1704-66-60Ykdi Name:Radha MACHADO JR.: [id number] [address] [address] [facility] 06/18/2024 Primary Insurance:MEDICARE A AND BPolicy Number: [id number] Date:2419-91-54Tksc Name:Marcello MACHADO JR.: [id number] [address] [place] [address] 06/18/2024 Secondary Insurance:AETNA MEDICARE SUPPLEMENTPolicy Number: [id number] Date:7796-48-03Zykq Name:Radha MACHADO JR.: [id number] [place] [address] 06/11/2024 Primary Insurance:MEDICARE A AND BPolicy Number: [id number] Date:5802-65-55Cqcx Name:Marcello MACHADO JR.: [id number] [address] [facility] 06/11/2024 Secondary Insurance:AETNA MEDICARE SUPPLEMENTPolicy Number: [id number] Date:2045-77-01Byvw Name:Radha MACHADO JR.: [id number] [address] [facility] 05/28/2024 Primary Insurance:MEDICARE A AND BPolicy Number: [id number] Date:1742-62-47Cnxq Name:Marcello MACHADO JR.: [id number] [place] [address] 05/28/2024 Secondary Insurance:AETNA MEDICARE SUPPLEMENTPolicy Number: [id number] Date:3084-43-55Uaxu Name:Radha MACHADO JR.: [id number] [place] [address] 05/27/2024 BRINA Ta LUCINDA: [id number] [address] [place] [phone]: () Primary Insurance:MEDICARE OUTPATIENTPolicy Number: [id number] Date:Plan Name:GUILLAUME Ta LUCINDA: [id number] [id number] [phone] [facility] 05/27/2024 Secondary Insurance:[employer] [facility] [employer] MEDICARE SUPPLEMENPolicy Number: [id number] Date:Plan Name: BRINA Ta LUCINDA: [id number] [address] [place] [phone] [facility]
[2024-12-31 11:01] LABS: PSA,Total- Diagnostic 0.24 ng/mL (0.00-4.00)
== END | disposition home or self-care (01) ==
PROVIDERS: PCP Family Medicine; Referring Provider Urology; Visit Provider Urology
DX: C61 Malignant neoplasm of prostate (principal)
CPT/HCPCS: 36415; 84153

== ENCOUNTER → 2025-03-04 | Outpatient (CLI) | payer MEDICARE, OTHER, SELFPAY ==
--- NOTE | 2025-03-04 07:52 | CT_ITS ---
PROCEDURE: CHEST WITHOUT CONTRAST 03/04/2025 REASON FOR EXAM: Known nodule, surveillance TECHNIQUE: Chest CT without contrast. Coronal and Sagittal reconstruction series were provided. One or more dose reduction techniques were used (e.g., Automated exposure control, adjustment of the mA and/or kV according to patient size, use of iterative reconstruction technique RADIATION DOSE SUMMARY: CTDlvol: 8.93 mGy DLP: 316.72 mGycm COMPARISON: 08/13/2024 FINDINGS: Lung windows show underlying emphysema with stable pleural thickening in the apices and fibrotic scarring in both upper lung moreno. Emphysematous blebs noted in both lung moreno. Stable spiculated scarring/fibrosis noted in both apices. There is also a stable pleural-based 7 mm nodule in the right lower lobe on axial image 43. No organized infiltrate, or effusion. No new suspicious noncalcified mass or nodule. Persistent evidence of chronic bronchitis. Soft tissue windows show a normal-appearing thyroid gland. No suspicious axillary, mediastinal or perihilar adenopathy. Peripheral calcifications in the thoracic aorta without aneurysm. Calcified coronary vessels are noted. Limited cuts through the upper abdomen show stable simple hepatic cysts. Bony structures show degenerative change Overall, no interval change since the previous study CT/Chest without Contrast IMPRESSION: Coronary artery calcification (CAC) is is present Underlying emphysema with emphysematous blebs, and evidence of chronic bronchit is. Stable nonspecific pleural thickening in both apices with stable spiculated fibrotic scars and pleural-based 7 mm nodule in t he right lower lobe. No new suspicious mass or nodule. No interval change another six-month follow-up is recommended to asses s stability No superimposed infiltrate or effusion No suspicious adenopathy Degenerative bony changes Reading Location: [place] [address]
== END | disposition home or self-care (01) ==
PROVIDERS: PCP Family Medicine; Referring Provider Nurse Practitioner Family; Visit Provider Nurse Practitioner Family
DX: R91.1 Solitary pulmonary nodule (principal)
CPT/HCPCS: 71250